=== PATIENT | male | born 1945 | race Caucasian/White ===

== ENCOUNTER 2019-07-07 07:09 | Outpatient (CLI) | payer MEDICARE, OTHER, SELFPAY ==
--- NOTE | 2019-07-07 07:18 | ECG_ITS ---
NAME OF STUDY: LEXISCAN SESTAMIBI STRESS TEST INDICATION: Dyspnea on Exertion, LEXISCAN STRESS TEST ORDERING PHYSICIAN: Carolyn CLINICAL INFORMATION: Chest pain INTERPRETATION: 1. The patient was brought to the laboratory where Lexiscan was infused over 20 seconds. There was an equipment malfunction the blood pressures were not captured. The resting heart rate was 69 beats per minute. The maximum heart rate is 91 beats per minute. 2. The baseline electrocardiogram reveals sinus rhythm and is a normal tracing 3. With Lexiscan infusion, there were no ST segment changes to suggest ischemia. 4. The patient experienced no symptoms or arrhythmias during the examination. CONCLUSION: 1. Unremarkable Lexiscan infusion. 2. Nuclear imaging to follow. Electronically Signed On 07-07-2019 10:57:06 [employer] by Remy Norton M.D. [id number]
--- NOTE | 2019-07-07 07:19 | NMCV_ITS ---
NM MIBI/MIBI Stress/Rest 14085 Armin Jameson Age: 73 Gender: M : 1945 Exam Date: 07/07/2019 07:35 Ordering Phys: Bi Leon MD Technologist: RICARDO Callahan Exam Location: [facility] Indications: Jenkins STRESS TEST Please see separate stress test report in [facility] for full findings IMAGE PROTOCOL Rest/Stress 1 Lexiscan Day Radiopharmaceutical Dose (mCi) Administration Site Administered by Rest: Tc-99m 10.4 IV RICARDO Callahan Sestamibi Stress:Tc-99m 31.2 IV RICARDO Callahan Sestamibi Rest: 07-Jul-2019 60 Discovery 630 Stress: 07-Jul-2019 60 Discovery 630 0.4mg Lexiscan. Images obtained in supine and prone position. SPECT RESULTS Technical Quality: Good Raw Data Analysis: Normal Image Corrections: Attenuation correction applied Y axis only on both sets of images. Summed Stress Score: 0 Summed Rest Score: 0 Summed Difference Score: 0 PERFUSION FINDINGS Large area of patchy decreased tracer uptake noted in basal to distal inferior and basal to mid inferolateral wall on the rest images which improved over stress images suggestive of artifact. FUNCTIONAL RESULTS (calculated via Gated SPECT) Stress Image LV EF (%): 69 Stress EDV (mL):75 TID: 0.81 Stress ESV (mL):23 Rest Image LV EF (%): 69 FUNCTIONAL FINDINGS: There is normal left ventricular systolic function. IMPRESSIONS Myocardial perfusion imaging is normal and low probability for obstructive coronary artery disease. EKG segment will be documented separately. Rachel Mueller MD (Electronically Signed) Final Date: 07 July 2019 13:13 S
[2019-07-07 07:40] VITALS: BMI 23.0
[2019-07-07] MEDS: regadenoson 0.4 Mg/5 ml Syringe IVP (09:09)
[2019-07-07 09:27] VITALS: BP 157/87; PULSE 81
== END 2019-07-07 07:10 | disposition home or self-care (01) ==
LOC: CDL 07:11
PROVIDERS: Family Provider Internal Medicine; PCP Internal Medicine; Visit Provider Internal Medicine
DX: R06.00 Dyspnea, unspecified (principal)
CPT/HCPCS: 78452; 93017; A9500; J2785

== ENCOUNTER → 2019-10-21 08:31 | Outpatient (BNVA) | payer MEDICARE, OTHER, SELFPAY | PROVIDERS: Family Provider Internal Medicine; PCP Internal Medicine | DX: L11.1 Transient acantholytic dermatosis [Grover] (principal) | CPT/HCPCS: 86580 ==

== ENCOUNTER → 2019-10-27 13:08 | Outpatient (BNVA) | payer MEDICARE, OTHER, SELFPAY | PROVIDERS: Family Provider Internal Medicine; PCP Nurse Practitioner Family; Visit Provider Nurse Practitioner Family | DX: E11.65 Type 2 diabetes mellitus with hyperglycemia (principal); Z79.4 Long term (current) use of insulin; E78.2 Mixed hyperlipidemia; R29.6 Repeated falls; L11.1 Transient acantholytic dermatosis [Grover]; F39 Unspecified mood [affective] disorder; K21.9 Gastro-esophageal reflux disease without esophagitis; Z91.14 Patient's other noncompliance with medication regimen; F02.80 Dementia in other diseases classified elsewhere, unspecified severity, without behavioral disturbance, psychotic disturbance, mood disturbance, and anxiety; G30.1 Alzheimer's disease with late onset; Q28.2 Arteriovenous malformation of cerebral vessels; F32.9 Major depressive disorder, single episode, unspecified | CPT/HCPCS: 80053; 80061; 82044; 82607; 83036; 85025 ==

== ENCOUNTER → 2020-01-24 10:04 | Outpatient (BNVA) | payer MEDICARE, OTHER, SELFPAY | PROVIDERS: Family Provider Internal Medicine; PCP Nurse Practitioner Family; Visit Provider Nurse Practitioner Family | DX: E11.65 Type 2 diabetes mellitus with hyperglycemia (principal); Z79.4 Long term (current) use of insulin | CPT/HCPCS: 80053; 80061; 83036 ==

== ENCOUNTER 2020-04-11 08:39 | Emergency (ER) | payer MEDICARE, OTHER, SELFPAY ==
--- NOTE | 2020-04-11 08:50 | XRR_ITS ---
PROCEDURE INFORMATION: Exam: XR Chest, 1 View Exam date and time: 04/11/2020 9:27 AM Age: 74 years old Clinical indication: Cough and dyspnea; Additional info: Dyspnea/cough TECHNIQUE: Imaging protocol: XR of the chest Views: 1 view. COMPARISON: CR Chest 2 views* [id number] 12/28/2018 10:48 AM FINDINGS: Lungs: Interstitial prominence without acute airspace disease. Pleural space: No pleural effusion. Heart/Mediastinum: No cardiomegaly. Bones/joints: Degenerative change . XR/XR chest 1V portable [id number] IMPRESSION: Interstitial prominence without acute airspace disease.
[2020-04-11 08:54] VITALS: BP 169/82; PULSE 72; RESP 18; TEMP 36.3; O2SAT 97; BMI 23.3
[2020-04-11 09:04] VITALS: O2SAT 96
[2020-04-11 09:30] LABS: Basophils % 0.6 %; Eosinophils % 0.6 %; Hematocrit 44.8 % (42.0-52.0); Hemoglobin 14.6 g/dL (11.7-16.6); Lymphocytes # 0.8 10^3/uL (0.8-4.8); Lymphocytes % 15.1 %; Mean Corpuscular HGB Conc 32.6 g/dL (30.0-36.0); Mean Corpuscular Hemoglobin 29.1 pg (28.0-34.0); Mean Corpuscular Volume 89.2 fL (80-94); Mean Platelet Volume 9.5 fL (7.4-10.4); Monocytes # 0.8 10^3/uL (0.2-0.9); Monocytes % 14.7 %; Neutrophils # 3.57 10^3/uL (1.8-7.7); Neutrophils % 68.8 %; Nucleated Red Blood Cells % 0 %; Platelet Count 186 10^3/cmm (130-400); Red Blood Count 5.02 10^6/uL (4.1-5.3); Red Cell Distribution Width 12.3 % (12.1-15.1); White Blood Count 5.2 10^3/uL (4.0-10.0)
[2020-04-11 09:31] LABS: Fibrinogen 482 mg/dL (174-498)
[2020-04-11 09:34] LABS: D Dimer 0.36 ug/mIFEU (0-0.59)
[2020-04-11] MEDS: ondansetron 2 mg/ML SDV 2 mL 4 MG IVP (09:39)
[2020-04-11] MEDS: sodium chloride 0.9% 1,000 ML 999 ML IV (09:39)
[2020-04-11 09:41] LABS: Chloride 100 mmol/L (98-107); Lactic Sepsis W/Reflex 0.9 mmol/L (0.5-2.2); Potassium 4.1 mmol/L (3.5-5.1); Sodium 135 mmol/L (136-145)
[2020-04-11 09:46] VITALS: BP 142/83; PULSE 72; RESP 13; O2SAT 94
[2020-04-11 10:05] LABS: Alanine Aminotransferase 24 U/L (0-41); Alkaline Phosphatase 53 IU/L (40-130); Anion Gap 14.1 (5-19); Aspartate Amino Transferase 23 U/L (0-40); Blood Urea Nitrogen 19 mg/dL (8-23); Calcium 9.3 mg/dL (8.5-10.5); Carbon Dioxide 25 mmol/L (22-29); Globulin 3.1 g/dL (1.3-4.6); Glucose 156 mg/dL (65-115); Lactate Dehydrogenase 143 U/L (135-225); Magnesium 1.9 mg/dL (1.7-2.3); Osmolality Calculated 285 mOsm/kg (285-295); Total Bilirubin 0.5 mg/dL (0.15-1.2); Total Protein 7.1 g/dL (6.6-8.7)
[2020-04-11 10:05] LABS: Add Urine Microscopic? NO
--- NOTE | 2020-04-11 10:08 | ED_ITS ---
HPI - General Adult General: Chief complaint: General Medical Stated complaint: vomiting,diarrhea,fever Time Seen by Provider: 04/11/20 08:49 History of Present Illness: HPI narrative: 74-year-old male presents to the emergency room with complaints of cough vomiting diarrhea and fever. This started about 4 days ago he is not had any chest pain other than with his coughing fits he has had no vomiting that he has some abdominal wall discomfort he denies any medication melena hematemesis or coffee-ground emesis he has had a little bit of productive cough with this as well. He is diabetic and has mild dementia his is his main caregiver. Onset (ago): day(s) (4) Severity: moderate Relieving factors: none Exacerbating factors: none Associated symptoms: Reports confusion (Has mild dementia per the he is at his baseline), cough, decreased appetite, dyspnea, fevers/chills, headache(s), malaise, nausea, short of breath, vomiting and weakness; Deny chest pain, diaphoresis, rash, palpitations, seizures or syncope Treatments prior to arrival: none Review of Systems Const: Reports: malaise; Denies: diaphoresis ENMT: Denies: throat pain, ear or mastoid pain, nasal discharge or nasal congestion Card: Denies: chest pain, palpitations or syncope Resp: Reports: dyspnea GI: Reports: nausea and vomiting : Denies: flank pain, dysuria, urinary frequency or urinary urgency Skin/Breast: Denies: rash Neuro: Reports: headache(s) and confusion (Has mild dementia per the he is at his baseline) [facility] PFSH: Medical History Actinic keratoses 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 Asthenia Atherosclerosis of arteries Cerebral AV malformation Cervical pain Cognitive impairment Congenital arteriovenous malformation of spine Depression Diabetes Diverticulitis Fixed drug eruption Intention tremor Lung nodules Mass of spine Mild anemia Mixed hyperlipidemia Mood disorder Neuralgia Obstructive sleep apnea Peripheral neuropathy, idiopathic Poor compliance with medication 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 Unintentional weight loss Surgical History History of cholecystectomy History of colon resection Family History Other Cancer Social History Smoking and tobacco status: never smoked Second hand smoke exposure: No Alcohol intake: never Lives independently: Yes Household members: spouse Marital status: Current occupational status: retired Previous occupational history: [employer] History of recent travel: No Current gender identity: Male Special naldo needs: No Agree to transfusion: Yes Physical Exam Const: COMMON NORMALS: no acute distress GENERAL APPEARANCE: cooperative and comfortable HENMT: COMMON NORMALS: normocephalic, atraumatic and hearing grossly normal bilaterally HEAD & SCALP: normocephalic and atraumatic Eye: COMMON NORMALS: Equal, round and reactive pupils present, EOMs intact bilaterally, conjunctivae normal and no scleral icterus CONJUNCTIVA: Yes conjunctivae normal PUPIL: Yes Equal, round and reactive pupils present Neck/C-Spine: COMMON NORMALS: no JVD Resp: COMMON NORMALS: normal respiratory effort, No retractions, No use of accessory muscles and clear to auscultation bilaterally AUSCULTATION: clear to auscultation bilaterally Cardio: COMMON NORMALS: no JVD, regular rate, regular rhythm and No murmurs present (Cardio) RATE: regular rate RHYTHM: regular rhythm GI: COMMON NORMALS: Soft to palpation and No hepatosplenomegaly present AUSCULTATION: Yes normoactive bowel sounds PALPATION: Yes Soft to palpation, No Tenderness to palpation present (GI), No Guarding due to palpation present (GI) and Yes No hepatosplenomegaly present Extremity: COMMON NORMALS: normal to inspection, capillary refill normal, no clubbing, cyanosis or edema, no calf tenderness and no pedal edema Skin: COMMON NORMALS: no rashes or lesions noted GENERAL SKIN EXAM: no rashes or lesions noted Course Vital Signs: Vital signs: Vital Signs Temperature 97.4 F L 04/11/20 08:54 Pulse Rate 73 04/11/20 13:15 Respiratory Rate 15 04/11/20 13:15 Blood Pressure 150/86 04/11/20 13:15 Pulse Oximetry 96 04/11/20 13:15 MDM - General Adult MDM Narrative: Medical decision making narrative: His sats are good and he is stable I am still very suspicious given his presentation he may have Covid although his inflammatory labs to look good. We are going to discharge him home after giving some IV fluids are given Cipro for him to use as needed additionally will give an O2 sat monitor. Return if he has worsening shortness of breath. Lab Data: Labs: Lab Results 04/11/20 04/11/20 04/11/20 Range/Units 09:00 09:00 09:00 WBC 5.2 (4.0-10.0) 10^3/ uL RBC 5.02 (4.1-5.3) 10^6/u L Hgb 14.6 (11.7-16.6) g/dL Hct 44.8 (42.0-52.0) % MCV 89.2 (80-94) fL MCH 29.1 (28.0-34.0) pg MCHC 32.6 (30.0-36.0) g/dL RDW 12.3 (12.1-15.1) % Plt Count 186 (130-400) 10^3/c mm MPV 9.5 (7.4-10.4) fL Neut % (Auto) 68.8 % Lymph % (Auto) 15.1 % [place] % (Auto) 14.7 % Eos % (Auto) 0.6 % Baso % (Auto) 0.6 % Neut # (Auto) 3.57 (1.8-7.7) 10^3/u L Lymph # (Auto) 0.8 (0.8-4.8) 10^3/u L [place] # (Auto) 0.8 (0.2-0.9) 10^3/u L Eos # (Auto) 0.0 (0.0-0.8) 10^3/u L Baso # (Auto) 0.0 (0.0-0.1) 10^3/u L Nucleated RBC % (a uto) 0 % Nucleated RBCs # 0.0 /100WBC Fibrinogen 482 (174-498) mg/dL D-Dimer 0.36 (0-0.59) ug/mIFE U Specimen Type Sample Site ABG pH (7.35-7.45) ABG pCO2 (35-45) mmHg ABG pO2 (80.0-100.0) mmH g ABG HCO3 (22-26) mmol/L ABG Base Excess (-2.0-2.0) mmol/ L Sushil Test Hematocrit (42-52) % O2 Delivery Device FiO2 % Rn Chemical Dependency ID Sodium 135 L (136-145) mmol/L Potassium 4.1 (3.5-5.1) mmol/L Chloride 100 (98-107) mmol/L Carbon Dioxide 25 (22-29) mmol/L Anion Gap 14.1 (5-19) BUN 19 (8-23) mg/dL Creatinine 1.2 (0.7-1.2) mg/dL GFR Calculation Not Reportable Glucose 156 H (65-115) mg/dL Calculated Osmolal ity 285 (285-295) mOsm/k g Lactic Acid (0.5-2.2) mmol/L Calcium 9.3 (8.5-10.5) mg/dL Magnesium 1.9 (1.7-2.3) mg/dL Ferritin 418 H (30-400) ng/mL Total Bilirubin 0.5 (0.15-1.2) mg/dL AST 23 (0-40) U/L ALT 24 (0-41) U/L Alkaline Phosphata se 53 (40-130) IU/L Lactate Dehydrogen ase 143 (135-225) U/L C-Reactive Protein 16.6 H (0.0-4.9) mg/L Total Protein 7.1 (6.6-8.7) g/dL Albumin 4.0 (3.5-5.2) g/dL Globulin 3.1 (1.3-4.6) g/dL Procalcitonin 0.16 (0-0.5) ng/mL Urine Color (Yellow) Urine Appearance (CLEAR) Urine pH (5-7) Ur Specific Gravit y (1.005-1.030) Urine Protein (Negative) Urine Glucose (UA) (Normal) Urine Ketones (Negative) Urine Blood (Negative) Urine Nitrate (Negative) Urine Bilirubin (Negative) Urine Urobilinogen (Negative) mg/dL Ur Leukocyte Lyn ase (Negative) Influenza Type A A g (Negative) Influenza Type B A g (Negative) SARS-CoV-2 Ag (Rap id) (Negative) 04/11/20 04/11/20 04/11/20 Range/Units 09:00 09:44 09:44 WBC (4.0-10.0) 10^3/ uL RBC (4.1-5.3) 10^6/u L Hgb (11.7-16.6) g/dL Hct (42.0-52.0) % MCV (80-94) fL MCH (28.0-34.0) pg MCHC (30.0-36.0) g/dL RDW (12.1-15.1) % Plt Count (130-400) 10^3/c mm MPV (7.4-10.4) fL Neut % (Auto) % Lymph % (Auto) % [place] % (Auto) % Eos % (Auto) % Baso % (Auto) % Neut # (Auto) (1.8-7.7) 10^3/u L Lymph # (Auto) (0.8-4.8) 10^3/u L [place] # (Auto) (0.2-0.9) 10^3/u L Eos # (Auto) (0.0-0.8) 10^3/u L Baso # (Auto) (0.0-0.1) 10^3/u L Nucleated RBC % (a uto) % Nucleated RBCs # /100WBC Fibrinogen (174-498) mg/dL D-Dimer (0-0.59) ug/mIFE U Specimen Type Sample Site ABG pH (7.35-7.45) ABG pCO2 (35-45) mmHg ABG pO2 (80.0-100.0) mmH g ABG HCO3 (22-26) mmol/L ABG Base Excess (-2.0-2.0) mmol/ L Sushil Test Hematocrit (42-52) % O2 Delivery Device FiO2 % Rn Chemical Dependency ID Sodium (136-145) mmol/L Potassium (3.5-5.1) mmol/L Chloride (98-107) mmol/L Carbon Dioxide (22-29) mmol/L Anion Gap (5-19) BUN (8-23) mg/dL Creatinine (0.7-1.2) mg/dL GFR Calculation Glucose (65-115) mg/dL Calculated Osmolal ity (285-295) mOsm/k g Lactic Acid 0.9 (0.5-2.2) mmol/L Calcium (8.5-10.5) mg/dL Magnesium (1.7-2.3) mg/dL Ferritin (30-400) ng/mL Total Bilirubin (0.15-1.2) mg/dL AST (0-40) U/L ALT (0-41) U/L Alkaline Phosphata se (40-130) IU/L Lactate Dehydrogen ase (135-225) U/L C-Reactive Protein (0.0-4.9) mg/L Total Protein (6.6-8.7) g/dL Albumin (3.5-5.2) g/dL Globulin (1.3-4.6) g/dL Procalcitonin (0-0.5) ng/mL Urine Color (Yellow) Urine Appearance (CLEAR) Urine pH (5-7) Ur Specific Gravit y (1.005-1.030) Urine Protein (Negative) Urine Glucose (UA) (Normal) Urine Ketones (Negative) Urine Blood (Negative) Urine Nitrate (Negative) Urine Bilirubin (Negative) Urine Urobilinogen (Negative) mg/dL Ur Leukocyte Lyn ase (Negative) Influenza Type A A g Negative (Negative) Influenza Type B A g Negative (Negative) SARS-CoV-2 Ag (Rap id) Negative (Negative) 04/11/20 04/11/20 Range/Units 09:55 10:22 WBC (4.0-10.0) 10^3/ uL RBC (4.1-5.3) 10^6/u L Hgb (11.7-16.6) g/dL Hct (42.0-52.0) % MCV (80-94) fL MCH (28.0-34.0) pg MCHC (30.0-36.0) g/dL RDW (12.1-15.1) % Plt Count (130-400) 10^3/c mm MPV (7.4-10.4) fL Neut % (Auto) % Lymph % (Auto) % [place] % (Auto) % Eos % (Auto) % Baso % (Auto) % Neut # (Auto) (1.8-7.7) 10^3/u L Lymph # (Auto) (0.8-4.8) 10^3/u L [place] # (Auto) (0.2-0.9) 10^3/u L Eos # (Auto) (0.0-0.8) 10^3/u L Baso # (Auto) (0.0-0.1) 10^3/u L Nucleated RBC % (a uto) % Nucleated RBCs # /100WBC Fibrinogen (174-498) mg/dL D-Dimer (0-0.59) ug/mIFE U Specimen Type Arterial Sample Site Radial, left ABG pH 7.37 (7.35-7.45) ABG pCO2 37.6 (35-45) mmHg ABG pO2 87.9 (80.0-100.0) mmH g ABG HCO3 22.0 (22-26) mmol/L ABG Base Excess -2.9 L (-2.0-2.0) mmol/ L Sushil Test Pos Hematocrit 42.1 (42-52) % O2 Delivery Device Room air FiO2 21.0 % Rn Chemical Dependency ID Cak Sodium (136-145) mmol/L Potassium (3.5-5.1) mmol/L Chloride (98-107) mmol/L Carbon Dioxide (22-29) mmol/L Anion Gap (5-19) BUN (8-23) mg/dL Creatinine (0.7-1.2) mg/dL GFR Calculation Glucose (65-115) mg/dL Calculated Osmolal ity (285-295) mOsm/k g Lactic Acid (0.5-2.2) mmol/L Calcium (8.5-10.5) mg/dL Magnesium (1.7-2.3) mg/dL Ferritin (30-400) ng/mL Total Bilirubin (0.15-1.2) mg/dL AST (0-40) U/L ALT (0-41) U/L Alkaline Phosphata se (40-130) IU/L Lactate Dehydrogen ase (135-225) U/L C-Reactive Protein (0.0-4.9) mg/L Total Protein (6.6-8.7) g/dL Albumin (3.5-5.2) g/dL Globulin (1.3-4.6) g/dL Procalcitonin (0-0.5) ng/mL Urine Color Yellow (Yellow) Urine Appearance Clear (CLEAR) Urine pH 5 (5-7) Ur Specific Gravit y 1.020 (1.005-1.030) Urine Protein Neg (Negative) Urine Glucose (UA) Norm (Normal) Urine Ketones Negative (Negative) Urine Blood Neg (Negative) Urine Nitrate Negative (Negative) Urine Bilirubin Neg (Negative) Urine Urobilinogen Neg (Negative) mg/dL Ur Leukocyte Lyn ase Negative (Negative) Influenza Type A A g (Negative) Influenza Type B A g (Negative) SARS-CoV-2 Ag (Rap id) (Negative) Discharge Plan Discharge Patient Disposition: Home Clinical Impression: Nausea & vomiting, Suspected 2019-nCoV infection Condition: Stable Prescriptions: New Zofran 4 mg tablet 4 mg PO Q6H PRN (Reason: nausea and vomiting) Qty: 15 RF: 0 No Action Bydureon BCise 2 mg/0.85 mL auto-injector 2 mg SUBCUT Q7D Qty: 3.4 RF: 2 atorvastatin 40 mg tablet 40 mg PO DAILY Qty: 90 RF: 3 duloxetine 40 mg capsule, delayed rel sprinkle 40 mg PO DAILY Qty: 90 RF: 0 Levemir U-100 Insulin 100 unit/mL solution 80 unit SUBCUT QPM 30 Days Qty: 24 RF: 2 quetiapine 25 mg tablet 25 mg PO BEDTIME 30 Days Qty: 30 RF: 3 pantoprazole 40 mg tablet,delayed release (DR/EC) 40 mg PO BID Qty: 60 RF: 6 triamcinolone acetonide 0.1 % Ointment 1 applic TOPICAL DIRECTED RF: 0 Discharge Orders: Discharge Order (Routine); Ordered 04/11/20 Ordered By: Nolan Moreno Referrals: Kinga Stinson FNP [Primary Care Provider] - Discharge Diet: Usual diet Discharge Activity: Increase activity as tolerated Activity Restrictions/Additional Instructions: You were swabbed for COVID-19 today recommend that you remain in self quarantine until results are available. Use the Zofran as needed for nausea or vomiting clear liquid diet for 24 hours and advance as tolerated if you have worsening symptoms or change in symptoms or any difficulty breathing return to the emergency room. 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
[2020-04-11 10:09] LABS: Bilirubin Urine Neg (Negative); Blood Urine Neg (Negative); Glucose Urine UA Norm (Normal); Ketones Urine Negative (Negative); Leukocyte Esterase Urine Negative (Negative); Nitrate Urine Negative (Negative); Protein Urine Neg (Negative); Urine Appearance Clear (CLEAR); Urine Color Yellow (Yellow); Urobilinogen Urine Neg (Negative); pH Urine 5 (5-7)
[2020-04-11 10:14] LABS: Influenza A by IFA Negative (Negative); Influenza B by IFA Negative (Negative); SARS Covid-2 Antigen Negative (Negative)
[2020-04-11 10:30] LABS: Procalcitonin 0.16 ng/mL (0-0.5)
[2020-04-11 10:35] LABS: ABG PCO2 37.6 mmHg (35-45); ABG PH Result 7.37 (7.35-7.45); Arterial Blood Gas Hematocrit 42.1 % (42-52); Base Excess ABG -2.9 mmol/L (-2.0-2.0); Blood Gas Allen Test Pos; Blood Gas Operator Identificat CAK; Blood Gas Sample Site Radial, left; Blood Gas Sample Type Arterial; Oxygen Device ROOM AIR; PO2 ABG 87.9 mmHg (80.0-100.0)
[2020-04-11 10:38] VITALS: BP 146/77; PULSE 71; RESP 13; O2SAT 97
[2020-04-11 10:41] LABS: C Reactive Protein 16.6 mg/L (0.0-4.9); Ferritin 418 ng/mL (30-400)
[2020-04-11 13:15] VITALS: BP 150/86; PULSE 73; RESP 15; O2SAT 96
[2020-04-11 20:56] LABS: Coronavirus Lab Test PTC Negative
--- NOTE | 2020-04-12 09:09 | PC.NURSE ---
Patient notified of COVID results at this time.
== END 2020-04-11 13:15 | disposition home or self-care (01) ==
PROVIDERS: Emergency Provider Family Medicine; PCP Nurse Practitioner Family
DX: Z20.828 Contact with and (suspected) exposure to other viral communicable diseases (principal); R11.2 Nausea with vomiting, unspecified; Z79.4 Long term (current) use of insulin; G30.1 Alzheimer's disease with late onset; F02.80 Dementia in other diseases classified elsewhere, unspecified severity, without behavioral disturbance, psychotic disturbance, mood disturbance, and anxiety; E78.2 Mixed hyperlipidemia; E11.42 Type 2 diabetes mellitus with diabetic polyneuropathy
CPT/HCPCS: 12345; 36600; 71045; 80053; 81003; 82728; 82803; 83605; 83615; 83735; 84145; 85025; 85378; 85384; 86140; 87426; 87635; 87804; 96361; 96374; 96375; 96376; 99284; J2405; J7030

== ENCOUNTER → 2020-05-02 09:19 | Outpatient (BNVA) | payer MEDICARE, OTHER, SELFPAY | PROVIDERS: PCP Nurse Practitioner Family; Visit Provider Family Medicine | DX: E78.2 Mixed hyperlipidemia (principal); E11.65 Type 2 diabetes mellitus with hyperglycemia; Z79.4 Long term (current) use of insulin | CPT/HCPCS: 80053; 80061; 83036; 85025 ==

== ENCOUNTER → 2020-07-30 09:48 | Outpatient (BNVA) | payer MEDICARE, OTHER, SELFPAY | PROVIDERS: PCP Nurse Practitioner Family; Visit Provider Nurse Practitioner Family | DX: E11.65 Type 2 diabetes mellitus with hyperglycemia (principal); Z79.4 Long term (current) use of insulin | CPT/HCPCS: 80053; 83036 ==

== ENCOUNTER → 2020-12-04 10:30 | Outpatient (BNVA) | payer MEDICARE, OTHER, SELFPAY | PROVIDERS: PCP Nurse Practitioner Family; Visit Provider Nurse Practitioner Family | DX: E11.65 Type 2 diabetes mellitus with hyperglycemia (principal); R53.83 Other fatigue; K21.9 Gastro-esophageal reflux disease without esophagitis | CPT/HCPCS: 80053; 80061; 82306; 82607; 83036; 84443; 85025 ==

== ENCOUNTER → 2021-05-07 12:02 | Outpatient (BNVA) | payer MEDICARE, OTHER, SELFPAY | PROVIDERS: PCP Nurse Practitioner Family; Visit Provider Nurse Practitioner Family | DX: E11.65 Type 2 diabetes mellitus with hyperglycemia (principal); E78.2 Mixed hyperlipidemia; Z79.4 Long term (current) use of insulin; E11.649 Type 2 diabetes mellitus with hypoglycemia without coma | CPT/HCPCS: 36416; 80053; 80061; 82962; 83036; 85025 ==

== ENCOUNTER → 2021-09-16 15:18 | Outpatient (BNVA) | payer MEDICARE, OTHER, SELFPAY | PROVIDERS: PCP Nurse Practitioner Family; Visit Provider Internal Medicine | DX: E11.65 Type 2 diabetes mellitus with hyperglycemia (principal); R53.83 Other fatigue; Z79.4 Long term (current) use of insulin; R63.4 Abnormal weight loss; D64.9 Anemia, unspecified; L11.1 Transient acantholytic dermatosis [Grover] | CPT/HCPCS: 80053; 82607; 82746; 83036; 83550; 84443; 85651; 86140 ==

== ENCOUNTER → 2021-09-23 14:41 | Outpatient (BNVA) | payer MEDICARE, OTHER, SELFPAY | PROVIDERS: PCP Nurse Practitioner Family; Visit Provider Internal Medicine | DX: Z20.822 Contact with and (suspected) exposure to COVID-19 (principal); R53.83 Other fatigue; E11.65 Type 2 diabetes mellitus with hyperglycemia; Z79.4 Long term (current) use of insulin; R63.4 Abnormal weight loss; D64.9 Anemia, unspecified; E61.1 Iron deficiency; Z01.818 Encounter for other preprocedural examination | CPT/HCPCS: 87635 ==

== ENCOUNTER 2021-09-30 07:18 | Day surgery (SDC) | payer MEDICARE, OTHER, SELFPAY ==
--- NOTE | 2021-09-30 07:34 | ANES.PREANE2 ---
Pre-Anesthetic Assessment Height/Weight: Height 1.83 m Preop Diagnosis: Fe def Operation Date: 09/30/21 09:00 Proposed Procedures p EGD 67323, colon 09994, E61.1(Not Applicable) - Bi Leon MD s Colonoscopy(Not Applicable) - Bi Leon MD Familial anesthetic complications: None Was Beta Christiano taken within 24 hours: N/A Was Clonidine taken within 24 hours: N/A Last intake: > 8hrs Social No alcohol and No tobacco Exam alert, oriented x 3, clear to auscultation bilaterally and regular rate & rhythm Airway Mallampati: Class III Dentition: other (missing tooth) Pulmonary None reported CV/HEM None reported None reported Hepatic None reported GI Gastroesophageal Reflux Disease Metabolic Diabetes Mellitus [facility] [place] None reported Neuropsych 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, still has headaches Anesthetic Plan ASA status: 3 Anesthesia: MAC Risk of > 500 ml blood loss (7ml/kg in children): No Medications/Allergies Home Medications Medication Instructions Recorded Confirmed Last Taken Type ondansetron HCl 4 mg tablet 4 mg PO Q6H PRN #15 tab 04/11/20 09/27/21 Unknown Rx (Zofran) lancets 23 gauge #100 ea 07/03/20 09/27/21 Unknown Rx blood sugar diagnostic (Blood #100 ea 08/03/20 09/27/21 Unknown Rx Glucose Test) pantoprazole 40 mg tablet,delayed 40 mg PO BID #60 tab 05/08/21 09/27/21 Unknown Rx release insulin syringe-needle U-100 1 mL See Rx Instructions .ROUTE 06/17/21 09/27/21 Unknown Rx 31 gauge x 5/16 .COMPLEX #100 ea quetiapine 25 mg tablet 25 mg PO BEDTIME 30 Days #30 tab 07/09/21 09/27/21 Unknown Rx insulin detemir U-100 100 unit/mL 80 unit (0.8 mL) SUBCUT DAILY #30 08/20/21 09/27/21 Unknown Rx (3 mL) subcutaneous pen (Levemir ml FlexTouch U-100 Insulin) clonazepam 1 mg tablet 1 mg PO DAILY #30 tab 09/04/21 09/27/21 Unknown Rx ferrous gluconate 324 mg (37.5 mg 324 mg PO DAILY #90 tab 09/23/21 09/27/21 Unknown Rx iron) tablet duloxetine 20 mg capsule,delayed 40 mg PO DAILY 09/27/21 09/27/21 Unknown History release Allergies Allergy/AdvReac Type Severity Reaction Status Date / Time metformin AdvReac ADR-Diarrhe Verified 09/23/21 13:25 a [facility] Anesthesia Medical History (Updated 09/23/21 @ 13:54 by Bi Leon MD) Actinic keratoses 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 Asthenia Atherosclerosis of arteries Cerebral AV malformation Cervical pain Cognitive impairment Congenital arteriovenous malformation of spine Depression Diabetes Diverticulitis Fixed drug eruption Intention tremor Lung nodules Mass of spine Mild anemia Mixed hyperlipidemia Mood disorder Neuralgia Obstructive sleep apnea Peripheral neuropathy, idiopathic Poor compliance with medication 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
--- NOTE | 2021-09-30 07:38 | P.HP_ITS ---
Same Day Surgery H&P Indication for Procedure/HPI DATE OF PROCEDURE: September 30, 2021 CHIEF COMPLAINT/INDICATIONFOR SURGICAL PROCEDURE: Iron deficiency PREOP DIAGNOSIS: Fe def PLANNED PROCEDURE: Operation Date: 09/30/21 09:00 Proposed Procedures p EGD 31404, colon 30292, E61.1(Not Applicable) - Bi Leon MD s Colonoscopy(Not Applicable) - Bi Leon MD Medications/Allergies* Home Medications Medication Instructions Recorded Confirmed Type duloxetine 20 mg capsule,delayed 40 mg PO DAILY 09/27/21 09/27/21 History release Allergies/Adverse Reactions Allergy/AdvReac Type Severity Reaction Status Date / Time metformin AdvReac ADR-Diarrhe Verified 09/23/21 13:25 a Pertinent History/Comorbid Conditions* Medical History (Updated 09/23/21 @ 13:54 by Bi Leon MD) Actinic keratoses 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 Asthenia Atherosclerosis of arteries Cerebral AV malformation Cervical pain Cognitive impairment Congenital arteriovenous malformation of spine Depression Diabetes Diverticulitis Fixed drug eruption Intention tremor Lung nodules Mass of spine Mild anemia Mixed hyperlipidemia Mood disorder Neuralgia Obstructive sleep apnea Peripheral neuropathy, idiopathic Poor compliance with medication 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 Unintentional weight loss Surgical History (Updated 02/01/20 @ 21:07 by JEAN MARIE Torres) History of cholecystectomy History of colon resection Family History (Updated 07/07/19 @ 07:54 by Suyapa Tolentino RN) Cancer Social History Smoking and tobacco status: never smoked Second hand smoke exposure: No Alcohol intake: never Lives independently: Yes Household members: spouse Marital status: Current occupational status: retired Previous occupational history: [employer] History of recent travel: No Current gender identity: Male Special naldo needs: No Agree to transfusion: Yes Pertinent Exam Findings alert, oriented x 3, clear to auscultation bilaterally, regular rate & rhythm, operative site marked and procedure specific exam findings Recommendations Surgery/Procedure today Coding Level of Care Code Acute 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
[2021-09-30 07:52] VITALS: BP 145/79; PULSE 70; RESP 18; TEMP 36.3; O2SAT 99
[2021-09-30 08:01] VITALS: BMI 22.2
[2021-09-30] MEDS: sodium chloride 0.9% 1,000 ML 30 ML IV (08:02)
[2021-09-30 09:35] VITALS: BP 91/54; PULSE 76; RESP 16; TEMP 36.1; O2SAT 96
--- NOTE | 2021-09-30 09:38 | ANE.PACU2 ---
Inpatient post-anesthesia follow up: Airway intact: Yes Vital signs: Temperature 97.3 F Pulse Rate 70 Respiratory Rate 18 Blood Pressure 145/79 Pulse Oximetry 99 Oxygen Delivery Me thod Room Air Oxygen Flow Rate Fraction of Inspir ed Oxygen Hydration adequate: Yes Nausea and vomiting: No Pain level: 1 Mental status: Baseline
[2021-09-30 09:45] VITALS: BP 92/54; PULSE 70; RESP 18; O2SAT 95
[2021-10-01 06:41] LABS: H. Pylori / CLO Test Negative
== END 2021-09-30 10:12 | disposition home or self-care (01) ==
PROVIDERS: PCP Internal Medicine; Visit Provider Internal Medicine
PROC: 0DJ08ZZ Inspection of Upper Intestinal Tract, Via Natural or Artificial Opening Endoscopic (ICD-10-PCS; CPT 43235; principal; 2021-09-30 09:00)
PROC: 0DJD8ZZ Inspection of Lower Intestinal Tract, Via Natural or Artificial Opening Endoscopic (ICD-10-PCS; CPT 45378; 2021-09-30 09:00)
DX: E61.1 Iron deficiency (principal); E11.9 Type 2 diabetes mellitus without complications; E78.2 Mixed hyperlipidemia; G47.33 Obstructive sleep apnea (adult) (pediatric); Z91.14 Patient's other noncompliance with medication regimen; E11.42 Type 2 diabetes mellitus with diabetic polyneuropathy; D12.3 Benign neoplasm of transverse colon; K29.70 Gastritis, unspecified, without bleeding; K21.9 Gastro-esophageal reflux disease without esophagitis; Z79.4 Long term (current) use of insulin
CPT/HCPCS: 43239; 45385; 87077; 88305; J2704; J7030

== ENCOUNTER → 2021-10-30 14:57 | Outpatient (BNVA) | payer MEDICARE, OTHER, SELFPAY | PROVIDERS: PCP Internal Medicine; Visit Provider Internal Medicine | DX: E61.1 Iron deficiency (principal); R63.4 Abnormal weight loss; R53.83 Other fatigue; E11.65 Type 2 diabetes mellitus with hyperglycemia; Z79.4 Long term (current) use of insulin | CPT/HCPCS: 83550 ==

== ENCOUNTER → 2021-11-27 10:14 | Outpatient (BNVA) | payer MEDICARE, OTHER, SELFPAY | PROVIDERS: PCP Internal Medicine; Visit Provider Internal Medicine | DX: E11.9 Type 2 diabetes mellitus without complications (principal) | CPT/HCPCS: 83036 ==

== ENCOUNTER → 2022-04-16 10:50 | Outpatient (BNVA) | payer MEDICARE, OTHER, SELFPAY | PROVIDERS: PCP Nurse Practitioner Family; Visit Provider Nurse Practitioner Family | DX: E11.65 Type 2 diabetes mellitus with hyperglycemia (principal); Z79.4 Long term (current) use of insulin; R32 Unspecified urinary incontinence | CPT/HCPCS: 80053; 80061; 81003; 82043; 83036; 84443; 85025 ==

== ENCOUNTER 2022-12-02 03:46 | Emergency (ER) | payer MEDICARE, OTHER, SELFPAY ==
[2022-12-02 03:47] VITALS: BMI 22.4
--- NOTE | 2022-12-02 03:47 | ECG_ITS ---
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 Measurements Intervals [place] Rate: 77 P: 19 DC: 186 QRS: 40 QRSD: 86 T: 74 QT: 374 QTc: 424 Interpretive Statements SINUS RHYTHM Compared to ECG 10/01/2018 12:54:21 Left-axis deviation no longer present Electronically Signed On 12-02-2022 5:40:28 CDT by Antonia Lott M.D. [id number]
--- NOTE | 2022-12-02 03:47 | XRR_ITS ---
PROCEDURE INFORMATION: Exam: XR Chest Exam date and time: 12/02/2022 3:55 AM Age: 77 years old Clinical indication: Other: Syncopal episodes; Additional info: Syncope TECHNIQUE: Imaging protocol: Radiologic exam of the chest. Views: 1 view. COMPARISON: CR XR chest 1V portable [id number] 04/11/2020 9:16 AM FINDINGS: Lungs: Unremarkable. No consolidation. Pleural spaces: Unremarkable. No pleural effusion. No pneumothorax. Heart/Mediastinum: Unremarkable. No cardiomegaly. Bones/joints: Unremarkable. XR/XR chest 1V portable [id number] IMPRESSION: No acute findings.
[2022-12-02 03:51] VITALS: BP 115/66; PULSE 80; RESP 16; TEMP 37.1; O2SAT 93
--- NOTE | 2022-12-02 03:53 | XRR_ITS ---
PROCEDURE INFORMATION: Exam: XR Right Hip Exam date and time: 12/02/2022 3:57 AM Age: 77 years old Clinical indication: Injury or trauma; Blunt trauma (contusions or hematomas); Right; Hip; Injury details: Multiple falls recently TECHNIQUE: Imaging protocol: Radiologic exam of the right hip. Views: 1 view hip with pelvis when performed. COMPARISON: No relevant prior studies available. FINDINGS: Bones/joints: Unremarkable. No acute fracture. Soft tissues: Unremarkable. XR/XR hip RT 2-3V wo/w pel* [id number] IMPRESSION: No acute findings.
[2022-12-02 03:55] LABS: Glucose Point of Care 208 mg/dL (70-110)
--- NOTE | 2022-12-02 03:57 | W.ED.SYNCOPE ---
HPI - Syncope General: Chief Complaint: Syncope Stated Complaint: SYNCOPE Time Seen by Provider: 12/02/22 03:46 Source: patient and EMS Mode of arrival: EMS Limitations: no limitations History of Present Illness: 69-year-old male states he passed out [address] he states that 2 nights ago when he passed out he fell and has been having right hip pain since that he was seen at [facility] last night and was told that his x-ray was negative. He states he tried to go to the bathroom tonight and passed out again he denies any injuries from that but states he still having hip pain and a hard time walking. 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 Asthenia Atherosclerosis of arteries Cerebral AV malformation Cervical pain Cognitive impairment Congenital arteriovenous malformation of spine Depression Diabetes Diverticulitis Fixed drug eruption Intention tremor Lung nodules Mass of spine Mild anemia Mixed hyperlipidemia Mood disorder Neuralgia Obstructive sleep apnea Peripheral neuropathy, idiopathic Poor compliance with medication 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 Unintentional weight loss Surgical History History of cholecystectomy History of colon resection Family History Other Cancer Social History Smoking and tobacco status: never smoked Second hand smoke exposure: No Alcohol intake: never Substance/Drug Use: never Lives independently: Yes Household members: spouse Marital status: Current occupational status: retired Previous occupational history: [employer] Current gender identity: Male Special naldo needs: No Agree to transfusion: Yes Physical Exam Const: COMMON NORMALS: patient oriented x3 and healthy appearing HENMT: COMMON NORMALS: normocephalic and atraumatic HEAD & SCALP: normocephalic and atraumatic Eye: COMMON NORMALS: Equal, round and reactive pupils present and EOMs intact bilaterally PUPIL: Yes Equal, round and reactive pupils present Neck/C-Spine: COMMON NORMALS: full ROM and supple CERVICAL SPINE: No pain with cervical ROM and No Cervical spine tenderness Chest: COMMONS NORMALS: normal inspection of the chest and normal palpation of entire chest wall Resp: COMMON NORMALS: normal respiratory effort, No retractions, No use of accessory muscles and clear to auscultation bilaterally AUSCULTATION: clear to auscultation bilaterally Cardio: COMMON NORMALS: regular rate, regular rhythm and No murmurs present (Cardio) RATE: regular rate RHYTHM: regular rhythm GI: COMMON NORMALS: Normal to inspection, nondistended, normoactive bowel sounds present, Soft to palpation, non-tender and no masses PALPATION: Yes Soft to palpation Extremity: COMMON NORMALS: normal to inspection and full ROM NARRATIVE EXTREMITY EXAM: tenderness over right hip Neuro: COMMON NORMALS: patient oriented x3, moves all extremities and no focal motor deficits Psych: COMMON NORMALS: mental status grossly normal, Normal thought process present and cooperative THOUGHT PROCESS: Normal thought process present Skin: COMMON NORMALS: no rashes or lesions noted and no wounds GENERAL SKIN EXAM: no rashes or lesions noted Course Vital Signs: Vital signs: Vital Signs Temperature 98.8 F 12/02/22 03:51 Pulse Rate 80 12/02/22 03:51 Respiratory Rate 16 12/02/22 03:51 Blood Pressure 115/66 12/02/22 03:51 Pulse Oximetry 93 12/02/22 03:51 Oxygen Delivery Me thod Nasal Cannula 12/02/22 03:51 Oxygen Flow Rate 3 12/02/22 03:51 MDM - Syncope Medical Decision Making Patient presents here after syncopal event he is very weak here as well he is having a difficult time ambulating on his own. CT of his hips normal he had a urinalysis done yesterday at his medical records from [facility] it was negative he had a CT head and C-spine yesterday 2 that was normal. I strongly recommended admission he adamantly refused I spoke to him and his family at length he states that he does not want to stay in the hospital and did sign out AGAINST MEDICAL ADVICE he understood the risks and has medical decision-making capacity. Medical Records I reviewed the patient's medical records. Lab Data I reviewed the patient's lab results. 12/02/22 03:55 12/02/22 03:55 Radiology Impressions Chest X-Ray 12/02/22 03:47 IMPRESSION: No acute findings. Hip/Pelvis X-Ray 12/02/22 03:53 IMPRESSION: No acute findings. Hip CT 12/02/22 04:02 IMPRESSION: No fracture or dislocation. Laboratory Results WBC 7.0 10^3/uL (4.0-10.0) 12/02/22 03:55 RBC 4.10 10^6/uL (4.1-5.3) 12/02/22 03:55 Hgb 11.5 g/dL (11.7-16.6) L 12/02/22 03:55 Hct 35.5 % (42.0-52.0) L 12/02/22 03:55 MCV 86.6 fl (80-94) 12/02/22 03:55 MCH 28.0 pg (28.0-34.0) 12/02/22 03:55 MCHC 32.4 g/dL (30.0-36.0) 12/02/22 03:55 RDW 12.2 % (12.1-15.1) 12/02/22 03:55 Plt Count 150 10^3/cmm (130-400) 12/02/22 03:55 MPV 8.9 fL (7.4-10.4) 12/02/22 03:55 Neut % (Auto) 78.6 % 12/02/22 03:55 Lymph % (Auto) 8.4 % 12/02/22 03:55 [place] % (Auto) 11.3 % 12/02/22 03:55 Eos % (Auto) 0.7 % 12/02/22 03:55 Baso % (Auto) 0.4 % 12/02/22 03:55 Neut # (Auto) 5.49 10^3/uL (1.8-7.7) 12/02/22 03:55 Lymph # (Auto) 0.6 10^3/uL (0.8-4.8) L 12/02/22 03:55 [place] # (Auto) 0.8 10^3/uL (0.2-0.9) 12/02/22 03:55 Eos # (Auto) 0.1 10^3/uL (0.0-0.8) 12/02/22 03:55 Baso # (Auto) 0.0 10^3/uL (0.0-0.1) 12/02/22 03:55 Nucleated RBC % (auto) 0 % 12/02/22 03:55 Nucleated RBCs # 0.0 /100WBC 12/02/22 03:55 Sodium 132 mmol/L (136-145) L 12/02/22 03:55 Potassium 3.8 mmol/L (3.5-5.1) 12/02/22 03:55 Chloride 97 mmol/L (98-107) L 12/02/22 03:55 Carbon Dioxide 26 mmol/L (22-29) 12/02/22 03:55 Anion Gap 12.8 (5-19) 12/02/22 03:55 BUN 16 mg/dL (8-23) 12/02/22 03:55 Creatinine 1.0 mg/dL (0.7-1.2) 12/02/22 03:55 GFR Calculation Not Reportable 12/02/22 03:55 Glucose 174 mg/dL (65-115) H 12/02/22 03:55 POC Glucose 208 mg/dL (70-110) H 12/02/22 03:51 Calculated Osmolality 279 mOsm/kg (285-295) L 12/02/22 03:55 Calcium 8.7 mg/dL (8.5-10.5) 12/02/22 03:55 Total Bilirubin 0.6 mg/dL (0.15-1.2) 12/02/22 03:55 AST 26 U/L (0-40) 12/02/22 03:55 ALT 23 U/L (0-41) 12/02/22 03:55 Alkaline Phosphatase 45 U/L (40-130) 12/02/22 03:55 Total Protein 6.5 g/dL (6.6-8.7) L 12/02/22 03:55 Albumin 3.3 g/dL (3.5-5.2) L 12/02/22 03:55 Globulin 3.2 g/dL (1.3-4.6) 12/02/22 03:55 EKG Data EKG 1: I personally reviewed and interpreted this EKG as follows: EKG interpretation date: 12/02/22 EKG interpretation time: 04:03 Interpretation: nsr hr [address] or t wave abnormalities qrs 86 qtc 406 Discharge Plan Discharge Patient Disposition: Left Against Medical Advice Clinical Impression: Weakness, Multiple falls, Syncope Condition: Stable Prescriptions: No Action ferrous gluconate 324 mg (37.5 mg iron) tablet 324 mg PO DAILY Qty: 90 3RF pantoprazole 40 mg tablet,delayed release (DR/EC) 40 mg PO BID Qty: 60 6RF duloxetine 60 mg capsule,delayed release(DR/EC) 60 mg PO DAILY Qty: 90 3RF quetiapine 25 mg tablet 25 mg PO BEDTIME 30 Days Qty: 30 3RF insulin syringe-needle U-100 1 mL 31 gauge x 5/16 syringe See Rx Instructions .ROUTE .COMPLEX Qty: 100 3RF Dose Instruction: USE DIRECTED TO inject insulin Rx Instructions: USE DIRECTED TO inject insulin (DME) pen needle, diabetic [Comfort EZ Pen [place]] 31 gauge x 5/16 needle See Rx Instructions .Route Qty: 100 3RF Rx Instructions: As directed Farxiga 10 mg tablet 10 mg PO DAILY Qty: 30 2RF (DME) Blood Glucose Test Strip See Rx Instructions .ROUTE .MEDSUPPLY Qty: 100 11RF Rx Instructions: to test 3 x day (DME) blood-glucose meter Misc See Rx Instructions .Route Qty: 1 0RF Rx Instructions: CHECK BLOOD SUGAR THREE TIMES DAILY (DME) lancets 23 gauge misc See Rx Instructions .ROUTE .MEDSUPPLY Qty: 100 2RF Rx Instructions: TID as directed Levemir FlexTouch U-100 Insuln 100 unit/mL (3 mL) insulin pen See Rx Instructions .ROUTE .COMPLEX Qty: 30 0RF Dose Instruction: INJECT 10 UNITS SUBCUTANEOUSLY IN THE MORNING AND 70 UNITS IN THE EVENING. Rx Instructions: INJECT 10 UNITS SUBCUTANEOUSLY IN THE MORNING AND 70 UNITS IN THE EVENING. Referrals: Kinga Stinson FNP [Primary Care Provider] - Coding Level of Care Code ED Wash Test Checker for Chg Alon
--- NOTE | 2022-12-02 04:02 | CTR_ITS ---
PROCEDURE INFORMATION: Exam: CT Right Lower Extremity Without Contrast, Hip Exam date and time: 12/02/2022 4:27 AM Age: 77 years old Clinical indication: Injury or trauma; Fall; Blunt trauma; Hip; Right TECHNIQUE: Imaging protocol: CT of the right lower extremity without contrast was performed. Exam focused on the hip. Radiation optimization: All CT scans at this facility use at least one of these dose optimization techniques: automated exposure control; mA and/or kV adjustment per patient size (includes targeted exams where dose is matched to clinical indication); or iterative reconstruction. REPORTING DATA: Count of CT and Cardiac NM exams in prior 12 months: This patient has received 0 known CTs and 0 known cardiac nuclear medicine studies in the 12 months prior to the current study. COMPARISON: CR (PELVIS, ) 12/02/2022 3:57 AM RADIATION DOSE METRICS: Total DLP (mGy-cm): 344.58 FINDINGS: Bones/joints: Normal. No acute fracture or dislocation. Soft tissues: There is swelling subcutaneous fat and thickening of the overlying skin about the lateral aspect of the hip region. There is small amount of hyperdense fluid tracking along the subcutaneous tissues of the anteromedial right thigh, likely representing hemorrhagic blood products/contusion. No significant hematoma identified. Vasculature: Mild diffuse atherosclerotic disease is present. Reproductive: The prostate is enlarged. CT/CT hip RT wo con* [id number] IMPRESSION: No fracture or dislocation.
[2022-12-02 04:05] LABS: Basophils % 0.4 %; Eosinophils # 0.1 10^3/uL (0.0-0.8); Eosinophils % 0.7 %; Hematocrit 35.5 % (42.0-52.0); Hemoglobin 11.5 g/dL (11.7-16.6); Lymphocytes # 0.6 10^3/uL (0.8-4.8); Lymphocytes % 8.4 %; Mean Corpuscular HGB Conc 32.4 g/dL (30.0-36.0); Mean Corpuscular Volume 86.6 fl (80-94); Mean Platelet Volume 8.9 fL (7.4-10.4); Monocytes # 0.8 10^3/uL (0.2-0.9); Monocytes % 11.3 %; Neutrophils # 5.49 10^3/uL (1.8-7.7); Neutrophils % 78.6 %; Nucleated Red Blood Cells % 0 %; Platelet Count 150 10^3/cmm (130-400); Red Cell Distribution Width 12.2 % (12.1-15.1)
[2022-12-02 04:22] LABS: Alanine Aminotransferase 23 U/L (0-41); Albumin Level 3.3 g/dL (3.5-5.2); Alkaline Phosphatase 45 U/L (40-130); Anion Gap 12.8 (5-19); Aspartate Amino Transferase 26 U/L (0-40); Blood Urea Nitrogen 16 mg/dL (8-23); Calcium 8.7 mg/dL (8.5-10.5); Carbon Dioxide 26 mmol/L (22-29); Chloride 97 mmol/L (98-107); Globulin 3.2 g/dL (1.3-4.6); Glucose 174 mg/dL (65-115); Osmolality Calculated 279 mOsm/kg (285-295); Potassium 3.8 mmol/L (3.5-5.1); Sodium 132 mmol/L (136-145); Total Bilirubin 0.6 mg/dL (0.15-1.2); Total Protein 6.5 g/dL (6.6-8.7)
--- NOTE | 2022-12-02 05:07 | PC.NURSE ---
Ambulation trial completed per MD. Pt allowed to get up on his own, per his request, but pt was very weak and took an extended time to get up. He fell back to the bed twice before finally being able to get up. Pt did ambulated to the door and back to the bed, but was very shaky and unsteady on his feet. Pt assisted back to bed. Vitals taken while standing were within normal limits. Pt reported feeling slightly dizzy, but otherwise ok. notified.
--- NOTE | 2022-12-02 05:11 | PC.NURSE ---
RN and MD to bedside to discuss admission. Pt is adamant about going home. This is against doctor's advice of being admitted. Pt and family understands and patient will sign out ama.
== END 2022-12-02 05:38 | disposition left against medical advice (07) ==
PROVIDERS: Emergency Provider Emergency Medicine; PCP Nurse Practitioner Family
DX: R55 Syncope and collapse (principal); Z91.81 History of falling; R53.1 Weakness; Z53.29 Procedure and treatment not carried out because of patient's decision for other reasons
CPT/HCPCS: 36416; 71045; 73502; 73700; 80053; 82962; 85025; 93005; 99285

== ENCOUNTER → 2023-02-25 09:21 | Outpatient (BNVA) | payer MEDICARE, OTHER, SELFPAY | PROVIDERS: PCP Nurse Practitioner Family; Visit Provider Nurse Practitioner Family | DX: E61.1 Iron deficiency (principal); R63.4 Abnormal weight loss; E78.2 Mixed hyperlipidemia; Z12.5 Encounter for screening for malignant neoplasm of prostate; E11.65 Type 2 diabetes mellitus with hyperglycemia | CPT/HCPCS: 80053; 80061; 82043; 83036; 83540; 84443; 85025; G0103 ==

== ENCOUNTER → 2023-03-16 09:55 | Outpatient (BNVA) | payer MEDICARE, OTHER, SELFPAY | PROVIDERS: PCP Internal Medicine; Referring Provider Internal Medicine; Visit Provider Psychiatry & Neurology Neurology | DX: R55 Syncope and collapse (principal); F02.80 Dementia in other diseases classified elsewhere, unspecified severity, without behavioral disturbance, psychotic disturbance, mood disturbance, and anxiety; G60.9 Hereditary and idiopathic neuropathy, unspecified; G30.1 Alzheimer's disease with late onset; E55.9 Vitamin D deficiency, unspecified; F51.4 Sleep terrors [night terrors]; G47.8 Other sleep disorders; G47.52 REM sleep behavior disorder; M54.81 Occipital neuralgia; R41.3 Other amnesia | CPT/HCPCS: 0346U; 82306; 82542; 82607; 82746; 83735; 83921; 84155; 84165; 86334; 86592; 86780; 99204 ==

== ENCOUNTER → 2023-03-26 08:07 | Outpatient (BNVA) | payer MEDICARE, OTHER, SELFPAY | PROVIDERS: PCP Internal Medicine; Visit Provider Psychiatry & Neurology Neurology | DX: R41.3 Other amnesia (principal); G47.9 Sleep disorder, unspecified; M54.81 Occipital neuralgia; R55 Syncope and collapse | CPT/HCPCS: 95813 ==

== ENCOUNTER 2023-04-02 12:21 | Outpatient (CLI) | payer MEDICARE, OTHER, SELFPAY ==
--- NOTE | 2023-04-02 13:00 | MR_ITS ---
WS: [id number] MRA ANGIOGRAPHY [place] OF [place] HISTORY: G60.9 - Hereditary and idiopathic neuropathy, unspecified COMPARISON: None available. TECHNIQUE: 3-D MR angiography is performed of the [place]. All images are reviewed including source images. Distal vertebral and basilar arteries are intact with no significant stenosis or plaque. Posterior ce rebral arteries are normal course and caliber. Posterior communicating arteries are both patent. LEFT posterior communicating artery is hypoplastic. Intracranial portion of the internal carotid arteries are normal course and caliber. No significant a therosclerosis, stenosis or aneurysm identified. Middle and anterior cerebral arteries are both paten t with no significant disease. Anterior communicating artery is also normal. IMPRESSION: Normal MRA [place]. No areas of significant occlusion or obstruction. No aneurysm.
--- NOTE | 2023-04-02 13:00 | MR_ITS ---
WS: [id number] MRI BRAIN WITH AND WITHOUT CONTRAST HISTORY: G60.9 - Hereditary and idiopathic neuropathy, unspecified COMPARISON: 10/02/2018 TECHNIQUE: Multiplanar imaging performed through the brain with MultiHance 17 ml's IV. No acute infarcts are seen. Puckett-white matter differentiation is well preserved. Moderate periventric ular small vessel ischemic disease. There is additional small vessel ischemic disease bilaterally wit hin the edson. The extent of disease within the edson does appear to have increased. Very minimal hippo campal atrophy. No susceptibility artifacts or prior lacunar infarcts. Ventricles and extra-axial spaces are normal. Clivus and pituitary gland are normal. Visualized posterior fossa and brainstem are also normal. Postcontrast images are negative for masses or vascular malformations. Dural venous sinuses are normal. Paranasal sinuses: Well aerated with no significant disease. Mastoid air cells: Normal. Calvarium and scalp: Normal. IMPRESSION: 1. No restricted diffusion. 2. Moderate periventricular small vessel ischemic disease is stable. 3. Moderate small vessel ischemic disease in the edson has increased since 2019. 4. Very mild cerebral atrophy and hippocampal atrophy. 5. No masses or abnormal enhancement within the brain.
--- NOTE | 2023-04-02 13:45 | MR_ITS ---
WS: [id number] MRA CAROTID ARTERIES HISTORY: G60.9 - Hereditary and idiopathic neuropathy, unspecified COMPARISON: None available. TECHNIQUE: MRA is performed with intravenous gadolinium. MIP and source images are reviewed. Right: Normal cervical carotid artery. Bifurcation is intact. No significant plaque and no stenosis. Left: Normal cervical carotid artery. Bifurcation is intact. No significant plaque and no stenosis. Subclavian Arteries: Origin of the LEFT subclavian artery is not included on this examination. Distal to the origin of the subclavian artery is normal. RIGHT subclavian is normal. Vertebral Arteries: Normal. Vertebral arteries appear equal size IMPRESSION: No significant atherosclerotic disease or stenosis cervical carotid arteries.
[2023-04-02] MEDS: gadobenate dimeglumine 20 mL vial IV (14:28)
== END 2023-04-02 12:22 | disposition home or self-care (01) ==
LOC: RAD 12:22
PROVIDERS: PCP Internal Medicine; Visit Provider Psychiatry & Neurology Neurology
DX: G60.9 Hereditary and idiopathic neuropathy, unspecified (principal); F02.80 Dementia in other diseases classified elsewhere, unspecified severity, without behavioral disturbance, psychotic disturbance, mood disturbance, and anxiety; G30.1 Alzheimer's disease with late onset; I67.89 Other cerebrovascular disease
CPT/HCPCS: 70544; 70548; 70553; A9577

== ENCOUNTER → 2023-06-11 11:51 | Outpatient (BNVA) | payer MEDICARE, OTHER, SELFPAY | PROVIDERS: PCP Internal Medicine; Visit Provider Psychiatry & Neurology Neurology | DX: R55 Syncope and collapse (principal) | CPT/HCPCS: 99212 ==

== ENCOUNTER → 2023-08-06 12:01 | Outpatient (BNVA) | payer MEDICARE, OTHER, SELFPAY | PROVIDERS: PCP Internal Medicine; Visit Provider Psychiatry & Neurology Neurology | DX: R55 Syncope and collapse (principal); M54.81 Occipital neuralgia; G47.52 REM sleep behavior disorder; F51.3 Sleepwalking [somnambulism]; R41.3 Other amnesia; G47.50 Parasomnia, unspecified | CPT/HCPCS: 99212 ==

== ENCOUNTER 2023-11-20 11:34 | Inpatient (IN) | payer MEDICARE, OTHER, SELFPAY ==
[2023-11-20] VITALS (11 sets, daily range): BP systolic 112–152; BP diastolic 49–81; PULSE 84–96; RESP 16–20; TEMP 36.6–37.4; O2SAT 90–98
[2023-11-20 11:41] LABS: Glucose Point of Care 169 mg/dL (70-110)
--- NOTE | 2023-11-20 11:44 | ECG_ITS ---
[facility] Test Date: 2023-11-20 Pat Name: Armin Jameson Department: Room: Gender: Male Department Head College Or University: : 1945 Requested By: Jaya Caputo Order Number: [id number] Rose Mary MD: Ric Johnson M.D. Measurements Intervals [place] Rate: 89 P: -46 IN: 151 QRS: 31 QRSD: 91 T: 80 QT: 378 QTc: 461 Interpretive Statements ECTOPIC ATRIAL RHYTHM POSSIBLE RIGHT VENTRICULAR CONDUCTION DELAY [RSR (QR) IN V1/V2] VOLTAGE CRITERIA FOR LVH [MEETS CRITERIA IN ONE OF: R(aVL), S(V1), R(V5), R(V5/V6)+S(V1)] Compared to ECG 12/02/2022 04:03:13 Ectopic atrial rhythm now present Left ventricular hypertrophy now present Sinus rhythm no longer present Electronically Signed On 11-20-2023 13:06:07 CDT by Ric Johnson M.D. [email or web address]
--- NOTE | 2023-11-20 11:47 | W.ED.RECABL ---
HPI - Recheck/Abnormal Lab/Rx General: Chief Complaint: Recheck/Abnormal Lab/Rx Stated Complaint: hypoglycemic Time Seen by Provider: 11/20/23 11:36 Source: patient and EMS Mode of arrival: EMS Limitations: no limitations History of Present Illness: 78-year-old male who was found unresponsive this morning by family called EMS when EMS arrived patient's glucose was 30 he is on insulin he states he had not eaten this morning. He is given dextrose and route he is now awake alert he states he feels slightly weak but has no complaints he is a dialysis patient goes on Thursday scheduled for dialysis today. He denies any fevers or cough or vomiting. Review of Systems Const: Denies: fever(s), chills, body aches or change in appetite Eyes: Denies: blurry vision or eye discomfort ENMT: Denies: throat pain or dental pain Card: Denies: chest pain Resp: Denies: dyspnea GI: Denies: abdominal pain, nausea, vomiting or diarrhea Musc: Denies: neck pain or back pain Skin/Breast: Denies: rash Neuro: Reports: confusion; Denies: headache(s) [facility] ED PFSH: Medical History (Updated 11/20/23 @ 14:40 by Jaya Caputo MD) Diverticulitis Intention tremor Unintentional weight loss Asthenia Actinic keratoses Lung nodules Neuralgia Mass of spine Mild anemia Obstructive sleep apnea 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 Cervical pain Peripheral neuropathy, idiopathic Atherosclerosis of arteries Mood disorder 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 Poor compliance with medication Depression Cognitive impairment Cerebral AV malformation Diabetes Mixed hyperlipidemia Surgical History History of cholecystectomy History of colon resection Family History Other Cancer Social History Smoking and tobacco/nicotine status: never used tobacco/nicotine Second hand smoke exposure: No Alcohol intake: never Substance/Drug Use: never Lives independently: Yes Household members: spouse Marital status: Current occupational status: retired Previous occupational history: [employer] Current gender identity: Male Special naldo needs: No Agree to transfusion: Yes Physical Exam Const: COMMON NORMALS: no acute distress, patient oriented x3 and healthy appearing HENMT: COMMON NORMALS: normocephalic and atraumatic HEAD & SCALP: normocephalic and atraumatic Eye: COMMON NORMALS: Equal, round and reactive pupils present and EOMs intact bilaterally PUPIL: Yes Equal, round and reactive pupils present Neck/C-Spine: COMMON NORMALS: full ROM and supple Chest: COMMONS NORMALS: normal inspection of the chest and normal palpation of entire chest wall Resp: COMMON NORMALS: normal respiratory effort, No retractions, No use of accessory muscles and clear to auscultation bilaterally AUSCULTATION: clear to auscultation bilaterally Cardio: COMMON NORMALS: regular rate, regular rhythm and No murmurs present (Cardio) RATE: regular rate RHYTHM: regular rhythm GI: COMMON NORMALS: Normal to inspection, nondistended, normoactive bowel sounds present, Soft to palpation, non-tender and no masses PALPATION: Yes Soft to palpation Extremity: COMMON NORMALS: normal to inspection and full ROM Neuro: COMMON NORMALS: patient oriented x3, moves all extremities and no focal motor deficits Psych: COMMON NORMALS: mental status grossly normal, Normal thought process present and cooperative THOUGHT PROCESS: Normal thought process present Skin: COMMON NORMALS: no rashes or lesions noted and no wounds GENERAL SKIN EXAM: no rashes or lesions noted Course Vital Signs: Vital signs: Vital Signs Temperature 97.9 F 11/20/23 11:35 Pulse Rate 84 11/20/23 14:00 Respiratory Rate 20 H 11/20/23 11:35 Blood Pressure 131/64 11/20/23 14:00 Pulse Oximetry 94 11/20/23 14:00 Oxygen Delivery Me thod Room Air 11/20/23 11:35 MDM - Recheck/Abnormal Lab/Rx Medical Decision Making Patient presents with generalized weakness along with multiple status is improved after given dextrose his AMS likely from his hypoglycemic at home. He is found to have a pneumonia here likely causing some of his generalized weakness as well will start IV antibiotics spoke to the hospitalist will admit. Medical Records I reviewed the patient's medical records. Lab Data I reviewed the patient's lab results. 11/20/23 11:42 11/20/23 11:42 Radiology Impressions Chest X-Ray 11/20/23 12:14 IMPRESSION: 1. Central line. 2. Mild left lower lobe atelectasis or infiltrate. Head CT 11/20/23 13:02 IMPRESSION: 1. No acute intracranial hemorrhage or edema. 2. Mild atrophy and mild small vessel ischemic disease. Laboratory Results WBC 15.70 10^3/uL (3.29-11.43) H 11/20/23 11:42 RBC 2.55 10^6/uL (3.85-5.65) L 11/20/23 11:42 Hgb 7.70 g/dL (11.27-16.99) L 11/20/23 11:42 Hct 24.2 % (37-53) L 11/20/23 11:42 MCV 94.9 fl (82-101) 11/20/23 11:42 MCH 30.2 pg (27-33) 11/20/23 11:42 MCHC 31.8 g/dL (30-55) 11/20/23 11:42 RDW 15.6 % (12.1-15.1) H 11/20/23 11:42 Plt Count 162 10^3/cmm (157-399) 11/20/23 11:42 MPV 9.2 fL (7.4-10.4) 11/20/23 11:42 Neut % (Auto) 92.5 % 11/20/23 11:42 Lymph % (Auto) 1.7 % 11/20/23 11:42 [place] % (Auto) 3.4 % 11/20/23 11:42 Eos % (Auto) 1.1 % 11/20/23 11:42 Baso % (Auto) 0.5 % 11/20/23 11:42 Neut # (Auto) 14.53 10^3/uL (1.8-7.7) H 11/20/23 11:42 Lymph # (Auto) 0.3 10^3/uL (0.8-4.8) L 11/20/23 11:42 [place] # (Auto) 0.5 10^3/uL (0.2-0.9) 11/20/23 11:42 Eos # (Auto) 0.2 10^3/uL (0.0-0.8) 11/20/23 11:42 Baso # (Auto) 0.1 10^3/uL (0.0-0.1) 11/20/23 11:42 Nucleated RBC % (auto) 0 % 11/20/23 11:42 Nucleated RBCs # 0.0 /100WBC 11/20/23 11:42 Sodium 134 mmol/L (136-145) L 11/20/23 11:42 Potassium 3.5 mmol/L (3.5-5.1) 11/20/23 11:42 Chloride 92 mmol/L (98-107) L 11/20/23 11:42 Carbon Dioxide 31 mmol/L (22-29) H 11/20/23 11:42 Anion Gap 14.5 (5-19) 11/20/23 11:42 BUN 46 mg/dL (8-23) H 11/20/23 11:42 Creatinine 5.8 mg/dL (0.7-1.2) H* 11/20/23 11:42 GFR Calculation Not Reportable 11/20/23 11:42 Glucose 161 mg/dL (65-115) H 11/20/23 11:42 POC Glucose 108 mg/dL (70-110) 11/20/23 14:21 Calculated Osmolality 293 mOsm/kg (285-295) 11/20/23 11:42 Calcium 8.1 mg/dL (8.5-10.5) L 11/20/23 11:42 Total Bilirubin 0.3 mg/dL (0.15-1.2) 11/20/23 11:42 AST 20 U/L (0-40) 11/20/23 11:42 ALT 15 U/L (0-41) 11/20/23 11:42 Alkaline Phosphatase 34 U/L (40-130) L 11/20/23 11:42 Total Protein 5.6 g/dL (6.6-8.7) L 11/20/23 11:42 Albumin 2.6 g/dL (3.5-5.2) L 11/20/23 11:42 Globulin 3.0 g/dL (1.3-4.6) 11/20/23 11:42 Lipase 36 U/L (13-60) 11/20/23 11:42 All radiology interpretation(s) finalized by discharge EKG Data EKG 1: I personally reviewed and interpreted this EKG as follows: EKG interpretation date: 11/20/23 EKG interpretation time: 11:44 Interpretation: nsr hr [address] or t wave abnormalities qrs 91 qtc 424 Discharge Plan Discharge Patient Disposition: Admitted As Inpatient Clinical Impression: Hypoglycemia, Pneumonia Condition: Stable Prescriptions: No Action Levemir FlexTouch U100 Insulin 100 unit/mL (3 mL) insulin pen See Rx Instructions .ROUTE .COMPLEX Qty: 245 3RF Dose Instruction: INJECT 10 UNITS SUBCUTANEOUSLY IN THE MORNING AND 70 UNITS IN THE EVENING. Rx Instructions: INJECT 30 UNITS SUBCUTANEOUSLY IN THE MORNING AND 60 UNITS IN THE EVENING. clonazepam 1 mg tablet 1 mg PO DAILY Qty: 30 5RF Rx Instructions: one at bedtime aspirin 81 mg capsule 81 mg PO DAILY primidone 50 mg tablet 50 mg PO DAILY pantoprazole 40 mg tablet,delayed release (DR/EC) 40 mg PO BID Qty: 60 6RF duloxetine 60 mg capsule,delayed release(DR/EC) 60 mg PO DAILY Qty: 90 3RF insulin syringe-needle U-100 1 mL 31 gauge x 5/16 syringe See Rx Instructions .ROUTE .COMPLEX Qty: 100 3RF Dose Instruction: USE DIRECTED TO inject insulin Rx Instructions: USE DIRECTED TO inject insulin (DME) pen needle, diabetic [Comfort EZ [place]] 31 gauge x 5/16 needle See Rx Instructions .Route Qty: 100 3RF Rx Instructions: As directed (DME) Blood Glucose Test Strip See Rx Instructions .ROUTE .MEDSUPPLY Qty: 100 11RF Rx Instructions: to test 3 x day (DME) blood-glucose meter Misc See Rx Instructions .Route Qty: 1 0RF Rx Instructions: CHECK BLOOD SUGAR THREE TIMES DAILY (DME) lancets [TRUEplus Lancets] 30 gauge misc See Rx Instructions .ROUTE .COMPLEX Qty: 100 5RF Dose Instruction: USE THREE TIMES DAILY as directed Rx Instructions: USE THREE TIMES DAILY as directed Referrals: Bi Leon MD [Primary Care Provider] - Coding Level of Care Code ED Pizza Maker for Enrique Chi
[2023-11-20 12:12] LABS: Basophils # 0.1 10^3/uL (0.0-0.1); Basophils % 0.5 %; Eosinophils # 0.2 10^3/uL (0.0-0.8); Eosinophils % 1.1 %; Hematocrit 24.2 % (37-53); Lymphocytes # 0.3 10^3/uL (0.8-4.8); Lymphocytes % 1.7 %; Mean Corpuscular HGB Conc 31.8 g/dL (30-55); Mean Corpuscular Hemoglobin 30.2 pg (27-33); Mean Corpuscular Volume 94.9 fl (82-101); Mean Platelet Volume 9.2 fL (7.4-10.4); Monocytes # 0.5 10^3/uL (0.2-0.9); Monocytes % 3.4 %; Neutrophils # 14.53 10^3/uL (1.8-7.7); Neutrophils % 92.5 %; Nucleated Red Blood Cells % 0 %; Platelet Count 162 10^3/cmm (157-399); Red Blood Count 2.55 10^6/uL (3.85-5.65); Red Cell Distribution Width 15.6 % (12.1-15.1)
--- NOTE | 2023-11-20 12:14 | XRR_ITS ---
PROCEDURE INFORMATION: Exam: XR Chest Exam date and time: 11/20/2023 12:17 PM Age: 78 years old Clinical indication: Prior surgery; Surgery date: 6+ months; Surgery type: Aneurysm port; Patient HX: Weakness/hypoglycemic TECHNIQUE: Imaging protocol: Radiologic exam of the chest. Views: 1 view. COMPARISON: CR XR chest 1V portable [id number] 12/02/2022 3:55 AM FINDINGS: Tubes, catheters and devices: Multi lumen catheter enters from the right and terminates in the SVC. Lungs: Mild atelectasis or infiltrate developing in the left lower lobe. Pleural spaces: Unremarkable. No pleural effusion. No pneumothorax. Heart/Mediastinum: Unremarkable. No cardiomegaly. Bones/joints: Unremarkable. XR/XR chest 1V portable [id number] IMPRESSION: 1. Central line. 2. Mild left lower lobe atelectasis or infiltrate.
[2023-11-20 12:29] LABS: Alanine Aminotransferase 15 U/L (0-41); Albumin Level 2.6 g/dL (3.5-5.2); Alkaline Phosphatase 34 U/L (40-130); Aspartate Amino Transferase 20 U/L (0-40); Blood Urea Nitrogen 46 mg/dL (8-23); Calcium 8.1 mg/dL (8.5-10.5); Carbon Dioxide 31 mmol/L (22-29); Chloride 92 mmol/L (98-107); Creatinine Clr Calc Pharmacy 11.4392; Glucose 161 mg/dL (65-115); Lipase 36 U/L (13-60); Osmolality Calculated 293 mOsm/kg (285-295); Sodium 134 mmol/L (136-145); Total Bilirubin 0.3 mg/dL (0.15-1.2); Total Protein 5.6 g/dL (6.6-8.7)
[2023-11-20 12:30] LABS: Anion Gap 14.5 (5-19); Potassium 3.5 mmol/L (3.5-5.1)
[2023-11-20 12:35] LABS: Glucose Point of Care 113 mg/dL (70-110)
--- NOTE | 2023-11-20 13:02 | CT_ITS ---
WS: [id number] CT HEAD NONCONTRAST HISTORY: ams TECHNIQUE: Contiguous axial imaging performed through the brain in 2.5 mm imaging. Bone and soft tiss ue windows. Sagittal and coronal reformats reviewed. All CT scans at [facility] use at least one of these dose optimization techniques: automated exposure control; mA and/or kV adjustment per pa tient size (includes targeted exams where dose is matched to clinical indication); or iterative recon struction. DLP: 1151.48 mGy.cm COMPARISON: 10/01/2018 No acute intracranial hemorrhage, midline shift or mass effect. Mild atrophy and mild small vessel ischemic disease. No prior infarct. Ventricles: Normal size with no hydrocephalus. Numerous surgical sutures and postoperative changes are noted on the localizer in the RIGHT neck. Paranasal sinuses: As visualized are clear. Mastoid air cells: Well pneumatized. Calvarium and scalp: Skull is intact with no soft tissue edema or swelling. CT/CT head wo con* [id number] IMPRESSION: 1. No acute intracranial hemorrhage or edema. 2. Mild atrophy and mild small vessel ischemic disease.
[2023-11-20] MEDS: cefTRIAXone 1,000 MG in sodium chloride 0.9% (plus) 50 ML 100 MG IV ×2 (13:38→20:13)
[2023-11-20 14:25] LABS: Glucose Point of Care 108 mg/dL (70-110)
[2023-11-20] MEDS: azithromycin 500 MG in sodium chloride 0.9% 250 ML 250 MG IV (14:29)
--- NOTE | 2023-11-20 16:01 | P.CONIM_ITS ---
Providers/Reason For Consult 2 Consulting Physician/Specialty*: kommana/Nephrology Reason for Consult*: ESRD Primary Care Provider: Bi Leon MD History of Present Illness History of Present Illness Armin Mauricio Jameson is a 78 year old male with PMH of DM, Dyslipidimia Peripheral Neuropathy , JOSE G , ESRD-HD per MWF schedule presented with Hypoglycemia and Altered mental status. He was noted to be hypoglycemic and recieved 1 amp of D 50%. Pt missed hD today. Labs reviewed Review of Systems 2 Narrative: negative Medications/Allergies Home Medications Medication Instructions Recorded Confirmed Last Taken Type pantoprazole 40 mg tablet,delayed 40 mg PO BID #60 tabs 11/26/21 08/06/23 Unknown Rx release duloxetine 60 mg capsule,delayed 60 mg PO DAILY #90 caps 03/04/22 08/06/23 Unknown Rx release insulin syringe-needle U-100 1 mL See Rx Instructions .Route 04/10/22 08/06/23 Unknown Rx 31 gauge x 5/16 .COMPLEX #100 ea pen needle, diabetic 31 gauge x #100 ea 04/21/22 08/06/23 Unknown Rx 5/16 (Comfort EZ Pen [place]) blood sugar diagnostic (Blood #100 ea 07/15/22 08/06/23 Unknown Rx Glucose Test strips) blood-glucose meter #1 ea 07/15/22 08/06/23 Unknown Rx insulin detemir U-100 100 unit/mL See Rx Instructions .Route 02/26/23 08/06/23 Unknown Rx (3 mL) subcutaneous pen .COMPLEX #245 mL lancets 30 gauge (TRUEplus Lancets) #100 ea 05/18/23 08/06/23 Unknown Rx clonazepam 1 mg tablet 1 mg PO DAILY #30 tabs 06/11/23 08/06/23 Unknown Rx aspirin 81 mg capsule 81 mg PO DAILY 08/06/23 08/06/23 Unknown History primidone 50 mg tablet 50 mg PO DAILY 08/06/23 08/06/23 Unknown History Allergies Allergy/AdvReac Type Severity Reaction Status Date / Time metformin AdvReac ADR-Diarrhe Verified 08/06/23 12:12 a PFSH Acute 2 PFSH: Medical History (Updated 11/20/23 @ 16:35 by Beverley Rasheed MD) Diverticulitis Intention tremor Unintentional weight loss Asthenia Actinic keratoses Lung nodules Neuralgia Mass of spine Mild anemia Obstructive sleep apnea 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 Cervical pain Peripheral neuropathy, idiopathic Atherosclerosis of arteries Mood disorder 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 Poor compliance with medication Depression Cognitive impairment Cerebral AV malformation Diabetes Mixed hyperlipidemia Surgical History History of cholecystectomy History of colon resection Family History Other Cancer Social History Smoking and tobacco/nicotine status: never used tobacco/nicotine Second hand smoke exposure: No Alcohol intake: never Substance/Drug Use: never Lives independently: Yes Household members: spouse Marital status: Current occupational status: retired Previous occupational history: [employer] Current gender identity: Male Special naldo needs: No Agree to transfusion: Yes Vitals/I&O/Wt Last Vital Signs Temp 97.9 F 11/20/23 11:35 Pulse 91 11/20/23 15:30 Resp 20 H 11/20/23 11:35 BP 127/68 11/20/23 15:30 Pulse Ox 95 11/20/23 15:30 O2 Del Method Room Air 11/20/23 11:35 11/20/23 11/20/23 11/20/23 06:59 14:59 22:59 Intake Total 50 / 50 Balance 50 / 50 Weight last 48 hrs Weight 79.379 kg Physical Exam 2 Narrative: confused S1S2 RRR per report Lungs clear per report No edema Data 11/20/23 11:42 11/20/23 11:42 Micro: Microbiology 11/20/23 14:07 Blood Culture - Preliminary Blood SPECIMEN COLLECTED 11/20/23 14:11 Blood Culture - Preliminary Blood SPECIMEN COLLECTED A&P Assessment and plan (1) ESRD (end stage renal disease) on dialysis: 1. ESRD - HD per MWF , hD today UF as tolerated 2. DM , now admitted with Hypoglycemia 3. Anemia : SONAM with hD 4. Dementia , advanced alzeimers pt evaluated by audiovisual cart. Time spent 20 min Consult Attestations 2 Medical Necessity Statement: per sulaiman Coding Level of Care Code Acute Code for Chg Fwd Diagnoses ESRD (end stage renal disease) on dialysis N18.6; Z99.2
--- NOTE | 2023-11-20 16:58 | PC.HD ---
Heparin 1000 units loading dose administered via HD catheter venous port at 1640 per ribbon inker's orders.
--- NOTE | 2023-11-20 17:05 | PM.HP ---
Providers/Chief Complaint Admitting Physician: Sumit Lane MD Primary Care Provider: Bi Leon MD Chief Complaint: hypoglycemic History of Present Illness Armin Mauricio Jameson is a 78 year old male comes into the ER today after having a pretty severe hypoglycemic episode down in the 30s. states that this is unusual for him. He has been eating normally. Blood sugars have been very erratic though. Been feeling okay. Little bit of cough but no shortness of breath no fevers or sputum. No chest pain. No significant medication changes recently. He is on dialysis and is due for dialysis today. No recent infections that he is aware of. He also has pretty significant anemia when he came in here today. According to the family he has been having to receive blood off and on over the past few months. The cause of this was due to his renal failure. No blood in his stools or blood in his urine that they have noticed. 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 He apparently had 3 rounds of chemotherapy that did not seem to do any improvement. The last one was 3 weeks ago. He has not had any follow-up since then. Review of Systems Narrative: General: No chronic fevers or chronic weight changes. HEENT: No acute changes in vision. No acute hearing loss. No new difficulty swallowing. Heart: No new chest pain or recent issues with coronary disease. Lungs: No history of TB. No chronic lung disease. GI: No history of GI bleeding. No hepatitis. No chronic nausea or vomitting. Renal: No dysuria or frequency. No hematuria Neuro: No acute neurological changes or deficits. Musculoskeletal: No acutely worsening joint pain or swelling. Medications/Allergies Home Medications Medication Instructions Recorded Confirmed Last Taken Type pantoprazole 40 mg tablet,delayed 40 mg PO BID #60 tabs 11/26/21 08/06/23 Unknown Rx release duloxetine 60 mg capsule,delayed 60 mg PO DAILY #90 caps 03/04/22 08/06/23 Unknown Rx release insulin syringe-needle U-100 1 mL See Rx Instructions .Route 04/10/22 08/06/23 Unknown Rx 31 gauge x 11/11 .COMPLEX #100 ea pen needle, diabetic 31 gauge x #100 ea 04/21/22 08/06/23 Unknown Rx 5/16 (Comfort EZ Pen [place]) blood sugar diagnostic (Blood #100 ea 07/15/22 08/06/23 Unknown Rx Glucose Test strips) blood-glucose meter #1 ea 07/15/22 08/06/23 Unknown Rx insulin detemir U-100 100 unit/mL See Rx Instructions .Route 02/26/23 08/06/23 Unknown Rx (3 mL) subcutaneous pen .COMPLEX #245 mL lancets 30 gauge (TRUEplus Lancets) #100 ea 05/18/23 08/06/23 Unknown Rx clonazepam 1 mg tablet 1 mg PO DAILY #30 tabs 06/11/23 08/06/23 Unknown Rx aspirin 81 mg capsule 81 mg PO DAILY 08/06/23 08/06/23 Unknown History primidone 50 mg tablet 50 mg PO DAILY 08/06/23 08/06/23 Unknown History Allergies Allergy/AdvReac Type Severity Reaction Status Date / Time metformin AdvReac ADR-Diarrhe Verified 08/06/23 12:12 a PFSH Acute PFSH: Medical History (Updated 11/20/23 @ 17:[address] MD) Microscopic polyangiitis Diverticulitis Intention tremor Unintentional weight loss Asthenia Actinic keratoses Lung nodules Neuralgia Mass of spine Mild anemia Obstructive sleep apnea 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 Cervical pain Peripheral neuropathy, idiopathic Atherosclerosis of arteries Mood disorder 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 Poor compliance with medication Depression Cognitive impairment Cerebral AV malformation Diabetes Mixed hyperlipidemia Surgical History History of cholecystectomy History of colon resection Family History Other Cancer Social History Smoking and tobacco/nicotine status: never used tobacco/nicotine Second hand smoke exposure: No Alcohol intake: never Substance/Drug Use: never Lives independently: Yes Household members: spouse Marital status: Current occupational status: retired Previous occupational history: [employer] Current gender identity: Male Special naldo needs: No Agree to transfusion: Yes Vitals/I&O/Wt Last Vital Signs Temp 99.3 F 11/20/23 16:57 Pulse 96 11/20/23 16:57 Resp 18 11/20/23 16:57 BP 135/70 11/20/23 16:57 Pulse Ox 95 11/20/23 15:30 O2 Del Method Room Air 11/20/23 11:35 11/20/23 11/20/23 11/20/23 06:59 14:59 22:59 Intake Total 50 / 50 Balance 50 / 50 Weight last 48 hrs Weight 175 lb Physical Exam Narrative: General: No acute distress, Alert. Well nourished. HEENT: PERRLA, EOMI. vision grossly normal. Throat clear. Neck: supple, no adenopathy. Heart: Regular rate and rhythm. No murmurs, rubs or gallops. Normal capillary refill. Lungs: Clear to auscultation. No wheezes, rhonchi or rales. Abdomen: Positive bowel sounds. Non-tender, non-distended. No hepatosplenomegaly. No gaurding. Extremities: No clubbing, cyanosis, or edema. Negative Drew's. Data 11/20/23 11:42 11/20/23 11:42 Micro: Microbiology 11/20/23 14:07 Blood Culture - Preliminary Blood SPECIMEN COLLECTED 11/20/23 14:11 Blood Culture - Preliminary Blood SPECIMEN COLLECTED A&P Assessment and plan (1) Hypoglycemia: Not really sure what caused this episode of hypoglycemia. It may be from his pneumonia, however he has been relatively asymptomatic with that.. Blood sugars have been pretty erratic it sounds like but not usually this low. We will monitor his blood sugar closely here. Let him start eating again here. Gentle with restarting his medications. (2) Pneumonia: He does appear to have pneumonia on chest x-ray. Also has not elevated white blood cell count at 15.7. And a left shift. We will go ahead and start antibiotics with Rocephin and Zithromax. (3) ESRD (end stage renal disease) on dialysis: Nephrology consulted for dialysis. (4) Microscopic polyangiitis: Not sure how much this is playing into his overall picture. He probably needs a rheumatology referral as an outpatient. (5) Diabetes: Qualifiers: Diabetes mellitus type: type 2 Diabetes mellitus extermination supervisor insulin use: with extermination supervisor use Diabetes mellitus complication status: with hyperglycemia Qualified Code(s): E11.65 - Type 2 diabetes mellitus with hyperglycemia; Z79.4 - MCC (current) use of insulin (6) Anemia: Appears that this is probably from his end-stage renal disease. Will recheck his hemoglobin after his dialysis. Do further testing if needed. Hold off on transfusions for now. No obvious active GI bleed that we are aware of. Do some GI prophylaxis by continuing his Protonix that he takes currently. Attestations Medical Necessity Statement*: Patient is a 78-year-old gentleman who comes in with severe hypoglycemia and pneumonia requiring inpatient IV treatments. Coding Level of Care Code Acute Code for [facility] Diagnoses Hypoglycemia E16.2 Pneumonia J18.9 ESRD (end stage renal disease) on dialysis N18.6; Z99.2 Microscopic polyangiitis M31.7 Type 2 diabetes mellitus with hyperglycemia, with long-term current use of insulin E11.65; Z79.4 Diabetes mellitus type: type 2 Diabetes mellitus extermination supervisor insulin use: with extermination supervisor use Diabetes mellitus complication status: with hyperglycemia Anemia D64.9
[2023-11-20 17:25] LABS: Glucose Point of Care 99 mg/dL (70-110)
[2023-11-20 17:42] LABS: Hepatitis B Surface AB < 3.5 (11.5-1000); Hepatitis B Surface Antigen Non-Reactive (Nonreactive)
[2023-11-20] MEDS: pantoprazole DR 40 mg Tablet PO (20:12)
[2023-11-20] MEDS: ferrous sulfate EC 325 mg Tablet PO (20:12)
[2023-11-20 21:19] LABS: Glucose Point of Care 159 mg/dL (70-110)
--- NOTE | 2023-11-20 21:48 | PC.NURSE ---
pt has an order for 60 units of Lantus HS. Informed Dr. Rapp and she advised to hold this dose.
[2023-11-20] MEDS: azithromycin 250 MG in sodium chloride 0.9% 250 ML IV (22:47)
[2023-11-20] MEDS: water for injection-sterile SDV 10 mL 4.79999999999999982 ML XX (22:48)
[2023-11-21] VITALS (17 sets, daily range): BP systolic 124–153; BP diastolic 62–86; PULSE 84–95; RESP 15–18; TEMP 36.1–36.9; O2SAT 87–94
--- NOTE | 2023-11-21 01:15 | PC.NURSE ---
This nurse responded to patient's bathroom call light. Upon entering the room, patient was found supine in the floor with his head next to the toilet and feet were out the bathroom door. Patient is unable to tell if he was coming from the bathroom or going to the bathroom or the details of his fall. Patient stated he did hit his head. This nurse had CONTRERAS Amaro obtain vital signs and inform patient's care nurse, HANNAH Reynoso. Patient was assessed and noted to have a skin tear to right posterior elbow and a bump to the posterior head. Patient was assisted up and to the bed where patient was cleaned up.
[2023-11-21 01:25] LABS: Glucose Point of Care 205 mg/dL (70-110)
--- NOTE | 2023-11-21 01:32 | CTR_ITS ---
PROCEDURE INFORMATION: Exam: CT Head Without Contrast Exam date and time: 11/21/2023 1:47 AM Age: 78 years old Clinical indication: Injury or trauma; Fall; Blunt trauma (contusions or hematomas); Prior surgery; Surgery date: 6+ months; Surgery type: Aneurysm repair; Patient HX: Patient fell striking occiput on floor. ; Additional info: Fell and hit head TECHNIQUE: Imaging protocol: Computed tomography of the head without contrast. Radiation optimization: All CT scans at this facility use at least one of these dose optimization techniques: automated exposure control; mA and/or kV adjustment per patient size (includes targeted exams where dose is matched to clinical indication); or iterative reconstruction. COMPARISON: CT head wo con* [id number] 11/20/2023 1:15 PM RADIATION DOSE METRICS: Total DLP (mGy-cm): 1027.13 FINDINGS: Brain: There is moderate cerebral atrophy. There is moderate diffuse heterogeneity of the white matter attenuation, consistent with chronic white matter ischemic changes. Negative for acute intracranial hemorrhage. Negative for mass effect on the brain. Negative for midline shift of brain. Puckett matter and white matter interfaces are unremarkable. Cerebral ventricles: No ventriculomegaly. Paranasal sinuses: Visualized sinuses are unremarkable. No fluid levels. Mastoid air cells: Visualized mastoid air cells are well aerated. Bones: Unremarkable. No acute fracture. Soft tissues: Streak artifact from liquid embolic is noted in the right posterior occipital soft tissues. CT/CT head wo con* [id number] IMPRESSION: Negative for acute intracranial pathology.
[2023-11-21 05:36] LABS: Glucose Point of Care 193 mg/dL (70-110)
[2023-11-21] MEDS: insulin glargine 100 units/1 mL 20 UNIT SUBCUT (06:08)
[2023-11-21 06:22] LABS: Basophils % 0.2 %; Eosinophils # 0.1 10^3/uL (0.0-0.8); Eosinophils % 0.4 %; Lymphocytes # 0.6 10^3/uL (0.8-4.8); Lymphocytes % 3.6 %; Mean Corpuscular HGB Conc 31.9 g/dL (30-55); Mean Corpuscular Hemoglobin 29.7 pg (27-33); Mean Corpuscular Volume 93.2 fl (82-101); Mean Platelet Volume 9.8 fL (7.4-10.4); Monocytes # 0.7 10^3/uL (0.2-0.9); Monocytes % 3.9 %; Neutrophils % 91.1 %; Nucleated Red Blood Cells % 0 %; Platelet Count 167 10^3/cmm (157-399); Red Blood Count 2.19 10^6/uL (3.85-5.65); Red Cell Distribution Width 15.8 % (12.1-15.1); White Blood Count 17.12 10^3/uL (3.29-11.43)
[2023-11-21 06:28] LABS: Hematocrit 20.4 % (37-53)
[2023-11-21 06:43] LABS: Anion Gap 14.7 (5-19); Blood Urea Nitrogen 26 mg/dL (8-23); Calcium 8.2 mg/dL (8.5-10.5); Carbon Dioxide 28 mmol/L (22-29); Chloride 94 mmol/L (98-107); Creatinine Clr Calc Pharmacy 16.1766; Glucose 173 mg/dL (65-115); Osmolality Calculated 285 mOsm/kg (285-295); Potassium 3.7 mmol/L (3.5-5.1); Sodium 133 mmol/L (136-145)
[2023-11-21] MEDS: duloxetine 60 mg Capsule PO (08:45)
[2023-11-21] MEDS: ferrous sulfate EC 325 mg Tablet PO ×3 (08:45→18:13)
[2023-11-21] MEDS: aspirin 81 mg EC Tablet PO (08:45)
[2023-11-21] MEDS: pantoprazole DR 40 mg Tablet PO ×2 (08:45→18:13)
[2023-11-21] MEDS: CLONazepam 1 mg Tablet PO (08:45)
--- NOTE | 2023-11-21 09:21 | PC.PHAR ---
PT STATES DOES NOT KNOW WHAT MEDICATIONS HE TAKES. SPOKE WITH , WHO IS DRIVING, AND CAN'T VERIFY MEDICATIONS SAFELY. SHE WILL ARRIVE BY 10AM TO VERIFY PT MEDS. 11/21/23
--- NOTE | 2023-11-21 09:53 | P.PN_ITS ---
Subjective 2 Subjective: The patient is doing well today. He has a cough, however it is relatively mild at this point and nonproductive. He denies any chest pains or significant shortness of breath. He will get set up for dialysis today and will be getting a blood transfusion with that. Vitals/I&O/Wt Last Vital Signs Temp 98.0 F 11/21/23 07:28 Pulse 91 11/21/23 07:28 Resp 15 11/21/23 07:28 BP 150/76 11/21/23 07:28 Pulse Ox 92 11/21/23 07:28 O2 Del Method Nasal Cannula 11/21/23 07:28 O2 Flow Rate 3 11/20/23 16:30 11/20/23 11/21/23 11/21/23 22:59 06:59 14:59 Intake Total 600 / 650 250 / 900 360 / 360 Output Total 2800 / 2800 Balance -2200 / -2150 250 / -1900 360 / 360 Weight last 48 hrs Weight 153 lb 12.8 oz Weight 151 lb 3.794 oz Weight 156 lb 4 oz Weight 175 lb Physical Exam 2 Narrative: General: Alert and oriented x 3. In no acute distress. Mouth: No erythema or tonsilar enlargement. No masses noted. Neck: No thyromegaly. No lymphadenopathy. Heart: Regular rate and rhythm. No murmurs. Lungs: Good air entry bilaterally with mild crackles and wheezes at the bilateral bases without significant rhonchi. Abdomen: Soft, non-tender. No hepatosplenomegaly. Extremities: No pitting edema. Data 11/21/23 05:01 11/21/23 05:01 Micro: Microbiology 11/20/23 14:07 Blood Culture - Preliminary Blood SPECIMEN COLLECTED 11/20/23 14:11 Blood Culture - Preliminary Blood SPECIMEN COLLECTED A&P Assessment and plan (1) Pneumonia: The patient has pneumonia in the left lung base and an elevated white blood cell count of 17 today. This has increased from 15.7 yesterday to he is currently on Rocephin and azithromycin for treatment. Will continue this and watch cultures. If this is not showing signs of improvement, we may need to change antibiotic treatment. I will order an incentive spirometer. (2) Anemia: Patient is significantly anemic with a hemoglobin of 6.5 that is decreased from 7.7. The patient will receive a blood transfusion and likely dialysis associated with this. I appreciate nephrology's assistance with this patient. (3) ESRD (end stage renal disease) on dialysis: Continue with treatment per nephrology. (4) Diabetes: The patient's blood sugars are currently well-controlled. Patient blood sugar in the ER was 30. This could have been due to the above infection. We will continue with current dose of insulin glargine and watch Accu-Cheks. For now we will hold off on sliding scale. Qualifiers: Diabetes mellitus type: type 2 Diabetes mellitus laborer marine terminal insulin use: with laborer marine terminal use Diabetes mellitus complication status: with hyperglycemia Qualified Code(s): E11.65 - Type 2 diabetes mellitus with hyperglycemia; Z79.4 - half-way (current) use of insulin Attestations 2 Medical Necessity Statement*: The patient's stay will cross 2 midnights due to continued need for treatment of his significant anemia and pneumonia. He continues to need IV antibiotics for treatment of the pneumonia. Coding Level of Care Code Acute Code for [facility] Diagnoses Pneumonia J18.9 Anemia D64.9 ESRD (end stage renal disease) on dialysis N18.6; Z99.2 Type 2 diabetes mellitus with hyperglycemia, with long-term current use of insulin E11.65; Z79.4 Diabetes mellitus type: type 2 Diabetes mellitus laborer marine terminal insulin use: with assisted use Diabetes mellitus complication status: with hyperglycemia
--- NOTE | 2023-11-21 10:15 | P.PN_ITS ---
Subjective 2 Subjective: weak, lethargic, +cough, no CP, n/v/f/c/chery. Medications: Reviewed: Yes Medication Review Details: Current Medications Acetaminophen (Acetaminophen 500 Mg Tablet) 1,000 mg PO Q6H PRN PRN Reason: MILD PAIN OR INCREASE TEMP Aspirin (Aspirin 81 Mg Ec Tablet) 81 mg PO DAILY [facility] Last Admin: 11/21/23 08:45 Dose: 81 mg Clonazepam (Clonazepam 1 Mg Tablet) 1 mg PO DAILY [facility] Last Admin: 11/21/23 08:45 Dose: 1 mg Duloxetine HCl (Duloxetine 60 Mg Capsule) 60 mg PO DAILY [facility] Last Admin: 11/21/23 08:45 Dose: 60 mg Ferrous Sulfate (Ferrous Sulfate Ec 325 Mg Tablet) 325 mg PO TIDWM [facility] Last Admin: 11/21/23 08:45 Dose: 325 mg Sodium Chloride (Sodium Chloride 0.9%) 1,000 mls @ 0 mls/hr IV .Q0M PRN PRN Reason: hypotension or symptomatic Albumin Human (Albumin) 12.5 gm in 50 mls @ 60 mls/hr IV PRN PRN PRN Reason: Hypotension and/or symptomatic Ceftriaxone Sodium 1,000 mg/ (Sodium Chloride) 50 mls @ 100 mls/hr IV Q24H [facility]; Protocol Last Infusion: 11/20/23 21:45 Dose: Infused Azithromycin 250 mg/ Sodium (Chloride) 250 mls @ 250 mls/hr IV Q24H [facility]; Protocol Last Infusion: 11/21/23 00:08 Dose: Infused Insulin Glargine (Insulin Glargine 100 Units/1 Ml) 60 unit SUBCUT BEDTIME [facility] Last Admin: 11/20/23 21:35 Dose: Not Given Insulin Glargine (Insulin Glargine 100 Units/1 Ml) 20 unit SUBCUT QAM [facility] Last Admin: 11/21/23 06:08 Dose: 20 unit Ondansetron HCl (Ondansetron 2 Mg/Ml Sdv 2 Ml) 4 mg IVP Q4H PRN PRN Reason: NAUSEA AND VOMITING Pantoprazole Sodium (Pantoprazole Dr 40 Mg Tablet) 40 mg PO BID [facility] Last Admin: 11/21/23 08:45 Dose: 40 mg Sodium Chloride (Sodium Chloride 0.9% 100 Ml Bag) 50 ml IV PRN PRN PRN Reason: Blood transfusion prime and flush Stop: 11/22/23 06:33 Vitals/I&O/Wt Last Vital Signs Temp 98.0 F 11/21/23 07:28 Pulse 91 11/21/23 07:28 Resp 15 11/21/23 07:28 BP 150/76 11/21/23 07:28 Pulse Ox 92 11/21/23 07:28 O2 Del Method Nasal Cannula 11/21/23 07:28 O2 Flow Rate 3 11/20/23 16:30 11/20/23 11/21/23 11/21/23 22:59 06:59 14:59 Intake Total 600 / 650 250 / 900 360 / 360 Output Total 2800 / 2800 Balance -2200 / -2150 250 / -1900 360 / 360 Weight last 48 hrs Weight 69.763 kg Weight 68.6 kg Weight 70.874 kg Weight 79.379 kg Physical Exam 2 Narrative: comfortable , nc 02 VS noted heent- nc/at, eomi neck supple lungs crackles heart regular abd soft, +BS ext no edema access rt ij PErmacath neuro- a,a, o Data 11/21/23 05:01 11/21/23 05:01 Micro: Microbiology 11/20/23 14:07 Blood Culture - Preliminary Blood SPECIMEN COLLECTED 11/20/23 14:11 Blood Culture - Preliminary Blood SPECIMEN COLLECTED A&P Assessment and plan (1) ESRD (end stage renal disease) on dialysis: 78 yr old man 1. ESRD - HD MWF. extra HD today for volume removal 2. PNA- renal dose abx 3. anemia - check iron studies 4. DM 5. HTN - monitor w/ dialysis seen and examined w/ RN - telehealth visit consent scott telehealth obtained from pt Plan see above Attestations 2 Medical Necessity Statement*: esrd, PNA, anemia Time Spent in Patient Care: 16 - 35 minutes Coding Level of Care Code Acute Code for [facility] Fwd Diagnoses ESRD (end stage renal disease) on dialysis N18.6; Z99.2
[2023-11-21 11:22] LABS: Glucose Point of Care 315 mg/dL (70-110)
[2023-11-21 16:12] LABS: Glucose Point of Care 159 mg/dL (70-110)
[2023-11-21 16:22] LABS: Hematocrit 28.5 % (37-53)
[2023-11-21 16:42] LABS: Calcium 7.8 mg/dL (8.5-10.5); Iron 95 ug/dL (59-158); Percent Saturation 77.8 % (20-50); Total Iron Binding Capacity 122 mcg/dl; Unsaturated Iron Binding 27 ug/dL (112-347)
[2023-11-21 16:48] LABS: Parathyroid Hormone 85.6 pg/mL (15-65)
[2023-11-21 17:02] LABS: Ferritin 2771 ng/mL (30-400)
[2023-11-21] MEDS: cefTRIAXone 1,000 MG in sodium chloride 0.9% (plus) 50 ML 100 MG IV (19:55)
[2023-11-21 20:58] LABS: Glucose Point of Care 266 mg/dL (70-110)
[2023-11-21] MEDS: water for injection-sterile SDV 10 mL 4.79999999999999982 ML IVP (22:57)
[2023-11-21] MEDS: azithromycin 250 MG in sodium chloride 0.9% 250 ML IV (22:57)
[2023-11-21] MEDS: insulin glargine 100 units/1 mL 60 UNIT SUBCUT (22:58)
[2023-11-22] VITALS: BP 144/77; PULSE 88; RESP 16; TEMP 36.8; O2SAT 90
[2023-11-22 04:00] VITALS: BP 177/83; PULSE 89; RESP 20; TEMP 36.5; O2SAT 90
[2023-11-22 05:32] LABS: Glucose Point of Care 32 mg/dL (70-110)
[2023-11-22 05:43] LABS: Glucose Point of Care 31 mg/dL (70-110)
--- NOTE | 2023-11-22 05:49 | PC.NURSE ---
Addendum entered by Ngear Silvestre RN 11/22/23 06:12: Dr. Rapp gave orders to give the amp of D50W, recheck blood sugar, and if pt is still hypoglycemic start D10W drip at 100mLs/hr and move to ICU. Original Note: Pt had blood sugar of 32. The patient was given orange juice, crackers, and milk. Recheck after the patient ate and drank showed his blood sugar was 31. The patient had no hypoglycemia protocol ordered; supervisor bottle house cleaners advised to start hypoglycemic protocol and give syringe of D50. This nurse administered it.
--- NOTE | 2023-11-22 05:50 | PC.NURSE ---
HYPOGLYCEMIC patient was sugar checked per schedule, found to be 32 mg/dL. patient was still alert and orientated. instructed to drink juice with sugar, chocolate milk, and crackers while hypoglycemic protocol reviewed in patient mar. patient was found to have no protocol for hypoglycemia in place. charge nurse placed order for hypoglycemic protocol, but when attempts were made to remove D10 IVF from the pyxis, medication was not available to pull as a PRN protocol med as well as not available to override, the only option for treatment was a D50 syringe. as it was recheck time, patients blood sugar was at 31 mg/dL. instructional writer pulled D50 syringe with supervisor dimension warehouse approval and charge nurse Bev Silvestre RN administered medication to patient. 20 minutes later patient recheck was 148 mg/dL. Dr Rapp was contacted and approved treatment of patient with orders for transfer of patient to ICU if blood sugar does not maintain safe parameters.
[2023-11-22 05:56] VITALS: BMI 20.7
[2023-11-22] MEDS: dextrose 50% syringe 50 mL (06:08)
[2023-11-22 06:14] LABS: Basophils # 0.1 10^3/uL (0.0-0.1); Basophils % 0.3 %; Eosinophils % 0.1 %; Hematocrit 31.6 % (37-53); Lymphocytes # 0.5 10^3/uL (0.8-4.8); Lymphocytes % 3.2 %; Mean Corpuscular HGB Conc 33.9 g/dL (30-55); Mean Corpuscular Hemoglobin 29.1 pg (27-33); Mean Corpuscular Volume 85.9 fl (82-101); Mean Platelet Volume 8.7 fL (7.4-10.4); Monocytes # 0.8 10^3/uL (0.2-0.9); Monocytes % 4.8 %; Neutrophils # 14.17 10^3/uL (1.8-7.7); Neutrophils % 90.1 %; Nucleated Red Blood Cells % 0 %; Platelet Count 194 10^3/cmm (157-399); Red Blood Count 3.68 10^6/uL (3.85-5.65); Red Cell Distribution Width 17.7 % (12.1-15.1); White Blood Count 15.72 10^3/uL (3.29-11.43)
[2023-11-22 06:20] LABS: Glucose Point of Care 148 mg/dL (70-110)
[2023-11-22 06:30] LABS: Alanine Aminotransferase 19 U/L (0-41); Alkaline Phosphatase 51 U/L (40-130); Anion Gap 12.9 (5-19); Aspartate Amino Transferase 24 U/L (0-40); Blood Urea Nitrogen 26 mg/dL (8-23); Calcium 8.1 mg/dL (8.5-10.5); Carbon Dioxide 29 mmol/L (22-29); Chloride 97 mmol/L (98-107); Globulin 3.7 g/dL (1.3-4.6); Magnesium 1.9 mg/dL (1.7-2.3); Osmolality Calculated 283 mOsm/kg (285-295); Phosphorus 2.4 mg/dL (2.5-4.5); Sodium 136 mmol/L (136-145); Total Bilirubin 0.3 mg/dL (0.15-1.2); Total Protein 6.7 g/dL (6.6-8.7)
[2023-11-22 06:33] LABS: Glucose 31 mg/dL (65-115); Potassium 2.9 mmol/L (3.5-5.1)
--- NOTE | 2023-11-22 07:38 | PM.PN ---
Subjective Subjective: at baseline, confused, weak. he states that he feels better. no n/v/f/c/chery/d Medications: Reviewed: Yes Medication Review Details: Current Medications Acetaminophen (Acetaminophen 500 Mg Tablet) 1,000 mg PO Q6H PRN PRN Reason: MILD PAIN OR INCREASE TEMP Aspirin (Aspirin 81 Mg Ec Tablet) 81 mg PO DAILY [facility] Last Admin: 11/21/23 08:45 Dose: 81 mg Clonazepam (Clonazepam 1 Mg Tablet) 1 mg PO DAILY [facility] Last Admin: 11/21/23 08:45 Dose: 1 mg Duloxetine HCl (Duloxetine 60 Mg Capsule) 60 mg PO DAILY [facility] Last Admin: 11/21/23 08:45 Dose: 60 mg Ferrous Sulfate (Ferrous Sulfate Ec 325 Mg Tablet) 325 mg PO TIDWM [facility] Last Admin: 11/21/23 18:13 Dose: 325 mg Sodium Chloride (Sodium Chloride 0.9%) 1,000 mls @ 0 mls/hr IV .Q0M PRN PRN Reason: hypotension or symptomatic Albumin Human (Albumin) 12.5 gm in 50 mls @ 60 mls/hr IV PRN PRN PRN Reason: Hypotension and/or symptomatic Ceftriaxone Sodium 1,000 mg/ (Sodium Chloride) 50 mls @ 100 mls/hr IV Q24H [facility]; Protocol Last Infusion: 11/21/23 22:19 Dose: Infused Azithromycin 250 mg/ Sodium (Chloride) 250 mls @ 250 mls/hr IV Q24H [facility]; Protocol Last Infusion: 11/22/23 00:12 Dose: Infused Insulin Glargine (Insulin Glargine 100 Units/1 Ml) 60 unit SUBCUT BEDTIME [facility] Last Admin: 11/21/23 22:58 Dose: 60 unit Insulin Glargine (Insulin Glargine 100 Units/1 Ml) 20 unit SUBCUT QAM [facility] Last Admin: 11/22/23 06:01 Dose: Not Given Ondansetron HCl (Ondansetron 2 Mg/Ml Sdv 2 Ml) 4 mg IVP Q4H PRN PRN Reason: NAUSEA AND VOMITING Pantoprazole Sodium (Pantoprazole Dr 40 Mg Tablet) 40 mg PO BID [facility] Last Admin: 11/21/23 18:13 Dose: 40 mg Vitals/I&O/Wt Last Vital Signs Temp 97.7 F 11/22/23 04:00 Pulse 89 11/22/23 04:00 Resp 20 H 11/22/23 04:00 BP 177/83 11/22/23 04:00 Pulse Ox 90 11/22/23 04:00 O2 Del Method Nasal Cannula 11/22/23 04:00 O2 Flow Rate 2 11/22/23 04:00 11/21/23 11/22/23 11/22/23 22:59 06:59 14:59 Intake Total 810 / 1170 430 / 1600 Output Total 2300 / 2300 Balance -1490 / -1130 430 / -700 Weight last 48 hrs Weight 69.49 kg Weight 69.7 kg Weight 69.763 kg Weight 68.6 kg Weight 70.874 kg Weight 79.379 kg Physical Exam Narrative: comfortable , nc 02 VS noted heent- nc/at, eomi neck supple lungs clear heart regular abd soft, +BS ext no edema access rt ij PErmacath neuro- a,a, o x1-2. seen and examined w/ RN- telehealth visit Data 11/22/23 05:41 11/22/23 05:41 Micro: Microbiology 11/20/23 14:07 Blood Culture - Preliminary Blood NEGATIVE TO DATE 11/20/23 14:11 Blood Culture - Preliminary Blood NEGATIVE TO DATE A&P Assessment and plan (1) ESRD (end stage renal disease) on dialysis: 78 yr old man 1. ESRD - HD MWF. s/p extra dialysis yesterday-give kdur now 2. PNA- renal dose abx 3. anemia - ferritin 2771- no need for iron, epo as needed 4. DM- sugars very low now. dec meds per medical doctor/ hospitalist 5. HTN - monitor w/ dialysis. will add amlodipine seen and examined w/ RN - telehealth visit consent for telehealth obtained from pt Plan see above Attestations Medical Necessity Statement*: pna, esrd, anemia, dementia Time Spent in Patient Care: 16 - 35 minutes Coding Level of Care Code Acute Code for Chg Fwd Diagnoses ESRD (end stage renal disease) on dialysis N18.6; Z99.2
[2023-11-22 08:00] VITALS: BP 155/89; PULSE 82; RESP 16; TEMP 36.4; O2SAT 95
[2023-11-22] MEDS: CLONazepam 1 mg Tablet PO (09:42)
[2023-11-22] MEDS: pantoprazole DR 40 mg Tablet PO ×2 (09:42→18:12)
[2023-11-22] MEDS: aspirin 81 mg EC Tablet PO (09:42)
[2023-11-22] MEDS: amlodipine 5 mg Tablet PO (09:42)
[2023-11-22] MEDS: potassium chloride ER 20 mEq Tablet PO (09:43)
[2023-11-22] MEDS: duloxetine 60 mg Capsule PO (09:43)
[2023-11-22 09:48] LABS: Glucose Point of Care 148 mg/dL (70-110)
--- NOTE | 2023-11-22 10:55 | XRR_ITS ---
PROCEDURE INFORMATION: Exam: XR Chest Exam date and time: 11/22/2023 3:20 PM Age: 78 years old Clinical indication: Other: Pneumonia TECHNIQUE: Imaging protocol: Radiologic exam of the chest. Views: 1 view. COMPARISON: CR XR chest 1V portable [id number] 11/20/2023 12:17 PM FINDINGS: Tubes, catheters and devices: Right-sided central catheter tip projecting over the expected region of the superior vena cava/right atrial junction. Lungs: Increasing left perihilar and bilateral infrahilar infiltrates. Pleural spaces: No pleural effusion. No pneumothorax. Heart/Mediastinum: No cardiomegaly. Bones/joints: No acute bony abnormality. XR/XR chest 1V portable [id number] IMPRESSION: Increasing left perihilar and bilateral infrahilar infiltrates.
[2023-11-22 12:00] VITALS: BP 162/84; PULSE 82; RESP 18; TEMP 36.8; O2SAT 94
[2023-11-22 12:01] LABS: Glucose Point of Care 103 mg/dL (70-110)
[2023-11-22 16:00] VITALS: BP 153/84; PULSE 88; RESP 17; TEMP 37.2; O2SAT 95
[2023-11-22 16:37] LABS: Glucose Point of Care 151 mg/dL (70-110)
--- NOTE | 2023-11-22 17:25 | PM.PN ---
Subjective Subjective: The patient is starting to feel better overall, however continues to feel weak in general. He still has a cough as well. He has been getting dialysis and has been getting blood with dialysis. He would like to go home when possible. Vitals/I&O/Wt Last Vital Signs Temp 99.0 F 11/22/23 16:00 Pulse 88 11/22/23 16:00 Resp 17 11/22/23 16:00 BP 153/84 11/22/23 16:00 Pulse Ox 95 11/22/23 16:00 O2 Del Method Nasal Cannula 11/22/23 16:00 O2 Flow Rate 2 11/22/23 04:00 11/22/23 11/22/23 11/22/23 06:59 14:59 22:59 Intake Total 430 / 1600 600 / 600 Balance 430 / -700 600 / 600 Weight last 48 hrs Weight 153 lb 3.2 oz Weight 153 lb 10.595 oz Weight 153 lb 12.8 oz Weight 151 lb 3.794 oz Physical Exam Narrative: General: Alert and oriented x 3. In no acute distress. Mouth: No erythema or tonsilar enlargement. No masses noted. Neck: No thyromegaly. No lymphadenopathy. Heart: Regular rate and rhythm. No murmurs. Lungs: Good air entry bilaterally with mild crackles and wheezes at the bilateral bases without significant rhonchi. Abdomen: Soft, non-tender. No hepatosplenomegaly. Extremities: Trace pitting edema. Data 11/22/23 05:41 11/22/23 05:41 Micro: Microbiology 11/20/23 14:07 Blood Culture - Preliminary Blood NEGATIVE TO DATE 11/20/23 14:11 Blood Culture - Preliminary Blood NEGATIVE TO DATE A&P Assessment and plan (1) Pneumonia: The patient has pneumonia in the left lung base and continues to have an elevated white blood cell count. It is mildly improved, however not significantly. Repeat chest x-ray shows signs of worsening pneumonia. I will go ahead and switch antibiotics to Zosyn from Rocephin to give a broader coverage. (2) Anemia: The patient's hemoglobin has significantly improved with transfusion and dialysis. We will continue to monitor. (3) ESRD (end stage renal disease) on dialysis: Continue with treatment per nephrology. (4) Diabetes: The patient had another low blood sugar episode overnight where his blood sugar dropped into the 30s. I will decrease his dose of long-acting insulin from 60 units down to 40 as he likely has decreased overall intake. 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 His pneumonia has not shown signs of improvement by way of x-ray. I will switch him to Zosyn. Once he is starting to show signs of improvement, we will plan to discharge him home at that time. 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
[2023-11-22] MEDS: piperacillin-tazobactam 3.375 GM in sodium chloride 0.9% (plus) 50 ML IV (18:12)
[2023-11-22 19:50] VITALS: BP 159/92; PULSE 86; RESP 17; TEMP 36.8; O2SAT 97
[2023-11-22 21:08] LABS: Glucose Point of Care 156 mg/dL (70-110)
[2023-11-22] MEDS: azithromycin 250 MG in sodium chloride 0.9% 250 ML IV (22:28)
[2023-11-23] VITALS (8 sets, daily range): BP systolic 155–179; BP diastolic 71–95; PULSE 83–90; RESP 16–18; TEMP 36.4–36.9; O2SAT 93–97
[2023-11-23] MEDS: piperacillin-tazobactam 3.375 GM in sodium chloride 0.9% (plus) 50 ML IV ×3 (01:52→21:42)
[2023-11-23 05:11] LABS: Basophils # 0.1 10^3/uL (0.0-0.1); Basophils % 0.6 %; Eosinophils # 0.1 10^3/uL (0.0-0.8); Eosinophils % 0.7 %; Hematocrit 29.9 % (37-53); Lymphocytes # 0.4 10^3/uL (0.8-4.8); Lymphocytes % 3.4 %; Mean Corpuscular HGB Conc 32.8 g/dL (30-55); Mean Corpuscular Hemoglobin 29.1 pg (27-33); Mean Corpuscular Volume 88.7 fl (82-101); Mean Platelet Volume 8.7 fL (7.4-10.4); Monocytes # 0.6 10^3/uL (0.2-0.9); Monocytes % 5.8 %; Neutrophils # 9.31 10^3/uL (1.8-7.7); Neutrophils % 88.2 %; Nucleated Red Blood Cells % 0 %; Platelet Count 176 10^3/cmm (157-399); Red Blood Count 3.37 10^6/uL (3.85-5.65); Red Cell Distribution Width 17.2 % (12.1-15.1); White Blood Count 10.55 10^3/uL (3.29-11.43)
[2023-11-23 05:31] LABS: Alanine Aminotransferase 14 U/L (0-41); Albumin Level 2.5 g/dL (3.5-5.2); Alkaline Phosphatase 44 U/L (40-130); Anion Gap 15.5 (5-19); Aspartate Amino Transferase 17 U/L (0-40); Blood Urea Nitrogen 34 mg/dL (8-23); Calcium 7.7 mg/dL (8.5-10.5); Carbon Dioxide 25 mmol/L (22-29); Chloride 97 mmol/L (98-107); Creatinine Clr Calc Pharmacy 12.5662; Globulin 3.3 g/dL (1.3-4.6); Glucose 138 mg/dL (65-115); Magnesium 1.7 mg/dL (1.7-2.3); Osmolality Calculated 288 mOsm/kg (285-295); Phosphorus 3.2 mg/dL (2.5-4.5); Potassium 3.5 mmol/L (3.5-5.1); Sodium 134 mmol/L (136-145); Total Bilirubin 0.3 mg/dL (0.15-1.2); Total Protein 5.8 g/dL (6.6-8.7)
[2023-11-23 06:10] LABS: Calcium 7.7 mg/dL (8.5-10.5); Parathyroid Hormone 103.5 pg/mL (15-65)
[2023-11-23 06:11] LABS: Thyroid Stimulating Hormone 2.73 uIU/mL (0.27-4.20)
[2023-11-23 06:30] LABS: Glucose Point of Care 132 mg/dL (70-110)
--- NOTE | 2023-11-23 07:04 | PM.PN ---
Subjective Subjective: feels better. glucose improved. dec cough and cp. he wants to go home. no n/v/f/a/d. Medications: Reviewed: Yes Medication Review Details: Current Medications Acetaminophen (Acetaminophen 500 Mg Tablet) 1,000 mg PO Q6H PRN PRN Reason: MILD PAIN OR INCREASE TEMP Amlodipine Besylate (Amlodipine 5 Mg Tablet) 5 mg PO DAILY [facility] Last Admin: 11/22/23 09:42 Dose: 5 mg Aspirin (Aspirin 81 Mg Ec Tablet) 81 mg PO DAILY [facility] Last Admin: 11/22/23 09:42 Dose: 81 mg Clonazepam (Clonazepam 1 Mg Tablet) 1 mg PO DAILY [facility] Last Admin: 11/22/23 09:42 Dose: 1 mg Duloxetine HCl (Duloxetine 60 Mg Capsule) 60 mg PO DAILY [facility] Last Admin: 11/22/23 09:43 Dose: 60 mg Sodium Chloride (Sodium Chloride 0.9%) 1,000 mls @ 0 mls/hr IV .Q0M PRN PRN Reason: hypotension or symptomatic Albumin Human (Albumin) 12.5 gm in 50 mls @ 60 mls/hr IV PRN PRN PRN Reason: Hypotension and/or symptomatic Azithromycin 250 mg/ Sodium (Chloride) 250 mls @ 250 mls/hr IV Q24H [facility]; Protocol Last Infusion: 11/22/23 23:47 Dose: Infused Dextrose (D5w) 500 mls @ 0 mls/hr IV ONCE PRN; Protocol PRN Reason: Adult Acute Hypoglycemia Prot Dextrose (D10w) 125 mls @ 750 mls/hr IV PRN PRN; Protocol PRN Reason: Adult Acute Hypoglycemia Nursing Protocol Dextrose (D10w) 250 mls @ 1,000 mls/hr IV PRN PRN; Protocol PRN Reason: Adult Acute Hypoglycemia Nursing Protocol Piperacillin Sod/Tazobactam (Sod 3.375 gm/ Sodium Chloride) 50 mls @ 12.5 mls/hr IV Q8H [facility]; Protocol Last Infusion: 11/23/23 06:16 Dose: 12.5 mls/hr Dextrose (D5w) 500 mls @ 0 mls/hr IV ONCE PRN; Protocol PRN Reason: Adult Acute Hypoglycemia Prot Dextrose (D10w) 125 mls @ 750 mls/hr IV PRN PRN; Protocol PRN Reason: Adult Acute Hypoglycemia Nursing Protocol Dextrose (D10w) 250 mls @ 1,000 mls/hr IV PRN PRN; Protocol PRN Reason: Adult Acute Hypoglycemia Nursing Protocol Insulin Glargine (Insulin Glargine 100 Units/1 Ml) 20 unit SUBCUT QAM [facility] Last Admin: 11/23/23 05:24 Dose: Not Given Insulin Glargine (Insulin Glargine 100 Units/1 Ml) 40 unit SUBCUT BEDTIME [facility] Last Admin: 11/22/23 22:19 Dose: Not Given Insulin Human Lispro (Insulin Lispro 100 Unit/1 Ml) 0 unit SUBCUT WM&BEDTIME [facility]; Protocol Ondansetron HCl (Ondansetron 2 Mg/Ml Sdv 2 Ml) 4 mg IVP Q4H PRN PRN Reason: NAUSEA AND VOMITING Pantoprazole Sodium (Pantoprazole Dr 40 Mg Tablet) 40 mg PO BID [facility] Last Admin: 11/22/23 18:12 Dose: 40 mg Vitals/I&O/Wt Last Vital Signs Temp 98.5 F 11/23/23 04:00 Pulse 88 11/23/23 04:00 Resp 18 11/23/23 04:00 BP 159/84 11/23/23 04:00 Pulse Ox 93 11/23/23 04:00 O2 Del Method Room Air 11/23/23 04:00 O2 Flow Rate 2 11/22/23 20:00 11/22/23 11/23/23 11/23/23 22:59 06:59 14:59 Intake Total 290 / 890 250 / 1140 Balance 290 / 890 250 / 1140 Weight last 48 hrs Weight 69.003 kg Weight 69.49 kg Weight 69.7 kg Physical Exam Narrative: comfortable , nc 02 VS noted heent- nc/at, eomi neck supple lungs clear heart regular abd soft, +BS ext no edema access rt ij PErmacath neuro- a,a, o x 2moves all extremities. seen and examined w/ RN- telehealth visit Data 11/23/23 04:43 11/23/23 04:43 A&P Assessment and plan (1) ESRD (end stage renal disease) on dialysis: 78 yr old man 1. ESRD - HD MWF. repeat hd 3 hrs, 3k, remove 2l 2. PNA- renal dose abx 3. anemia - ferritin 2771- no need for iron, epo as needed 4. DM- sugars were low yesterday. meds adjusted by Hospitalist 5. HTN - monitor w/ dialysis and amlodipine seen and examined w/ RN - telehealth visit consent for telehealth obtained from pt Plan see above Attestations Medical Necessity Statement*: pna, esrd Time Spent in Patient Care: 16 - 35 minutes Coding Level of Care Code Acute Code for Chg Fwd Diagnoses ESRD (end stage renal disease) on dialysis N18.6; Z99.2
--- NOTE | 2023-11-23 07:58 | PC.HD ---
Heparin 1000 units loading dose administered at 0735 via venous port of HD catheter per sales designer's orders.
[2023-11-23] MEDS: duloxetine 60 mg Capsule PO (09:48)
[2023-11-23] MEDS: CLONazepam 1 mg Tablet PO (09:48)
[2023-11-23] MEDS: pantoprazole DR 40 mg Tablet PO ×2 (09:48→18:12)
[2023-11-23] MEDS: aspirin 81 mg EC Tablet PO (09:48)
[2023-11-23] MEDS: amlodipine 5 mg Tablet PO (09:48)
[2023-11-23 11:48] LABS: Glucose Point of Care 142 mg/dL (70-110)
--- NOTE | 2023-11-23 12:04 | PC.SOCIAL ---
IMM Update Pg. 2 of IMM updated and reviewed with patient who verbalized understanding. Copy provided.
[2023-11-23] MEDS: insulin lispro 100 unit/1 mL SUBCUT ×3 (12:15→21:42)
--- NOTE | 2023-11-23 12:20 | XRR_ITS ---
PROCEDURE INFORMATION: Exam: XR Chest Exam date and time: 11/23/2023 12:38 PM Age: 78 years old Clinical indication: Condition or disease; Other: Pneumonia; Additional info: Pna TECHNIQUE: Imaging protocol: Radiologic exam of the chest. Views: 1 view. COMPARISON: CR (CHEST, ) 11/22/2023 3:20 PM FINDINGS: Tubes, catheters and devices: Unchanged dialysis catheter tunneled into the right internal jugular vein, and terminating in the upper right atrium. No complication. Lungs: Bilateral pneumonia is not obviously changed since yesterday. Otherwise, unremarkable. Pleural spaces: Unremarkable. No pleural effusion. No pneumothorax. Heart/Mediastinum: Unremarkable. No cardiomegaly. Bones/joints: Unchanged mild scoliosis with mild and moderate multilevel spondylosis. XR/XR chest 1V portable [id number] IMPRESSION: 1. Unchanged bilateral pneumonia. 2. Additional details as above.
[2023-11-23] MEDS: atorvastatin 40 mg Tablet PO (13:11)
--- NOTE | 2023-11-23 16:45 | P.PN_ITS ---
Subjective 2 Subjective: Hospital course, labs appreciated. Seen with daughter at bedside. Patient comfortable. Underwent dialysis earlier today morning. Denies any nausea vomiting, headache, chest pain. Vitals/I&O/Wt Last Vital Signs Temp 97.6 F 11/23/23 15:38 Pulse 84 11/23/23 15:38 Resp 16 11/23/23 15:38 BP 157/83 11/23/23 15:38 Pulse Ox 96 11/23/23 15:38 O2 Del Method Nasal Cannula 11/23/23 15:38 O2 Flow Rate 1 11/23/23 15:38 11/23/23 11/23/23 11/23/23 06:59 14:59 22:59 Intake Total 250 / 1140 590 / 590 Output Total 2300 / 2300 Balance 250 / 1140 -1710 / -1710 Weight last 48 hrs Weight 68.1 kg Weight 69.003 kg Weight 69.49 kg Physical Exam 2 Narrative: General: Alert and oriented x 3. In no acute distress. Mouth: No erythema or tonsilar enlargement. No masses noted. Neck: No thyromegaly. No lymphadenopathy. Heart: Regular rate and rhythm. No murmurs. Lungs: Good air entry bilaterally with mild crackles and wheezes at the bilateral bases without significant rhonchi. Abdomen: Soft, non-tender. No hepatosplenomegaly. Extremities: Trace pitting edema. Data 11/23/23 04:43 11/23/23 04:43 A&P Assessment and plan (1) Pneumonia: Left lower lobe pneumonia. Check sputum culture. Continue with IV Zosyn and azithromycin for now. Will plan to finish a 3-day course of azithromycin. Check MRSA swab. Plan to continue to finish a 5-day course. Patient currently on nasal cannula. Repeat chest x-ray. The patient has pneumonia in the left lung base and continues to have an elevated white blood cell count. It is mildly improved, however not significantly. Repeat chest x-ray shows signs of worsening pneumonia. I will go ahead and switch antibiotics to Zosyn from Rocephin to give a broader coverage. (2) Anemia: Post 2 unit of of blood transfusion during hospitalization. Hemoglobin stable. Appreciate iron panel, vitamin B12 levels. Continue to monitor. (3) ESRD (end stage renal disease) on dialysis: Continue with treatment per nephrology. (4) Diabetes: With recurrent episode of hypoglycemia. A1c of 10.7. Takes Lantus 40 units every morning, 60 units every afternoon. With episodes of severe hypoglycemia down to 30s. Patient has also received any of long-acting insulin within the last 24 hours. Hold off on Lantus for now. Continue with sliding scale. Will continue with sliding scale for now and monitor blood sugars and insulin requirement for next 34 hours. Most likely will discharge patient on Humalog with sliding scale for next couple of weeks with advised to maintain a blood sugar diary and follow-up with PCP as an outpatient for further changes in insulin. Hypoglycemia most likely in setting of weight loss along with CKD. Qualifiers: Diabetes mellitus type: type 2 Diabetes mellitus retirement insulin use: with retirement use Diabetes mellitus complication status: with hyperglycemia Qualified Code(s): E11.65 - Type 2 diabetes mellitus with hyperglycemia; Z79.4 - long-term (current) use of insulin (5) Hypoglycemia: (6) Weight loss: (7) Microscopic polyangiitis: Plan Hypertension: Goal blood pressure less than 140/90 mmHg. Blood pressure is mildly elevated. Increase amlodipine to home dose. Will plan to add losartan versus hydralazine as per goal blood pressures. Full code Renal diabetic dialysis diet Protonix for PUD prophylaxis SCDs for DVT prophylaxis, not on medical prophylaxis given anemia requiring blood transfusion on admission. Attestations 2 Medical Necessity Statement*: Requires further hospitalization for management of recurrent hypoglycemia in a patient with type 2 diabetes mellitus, ESRD on hemodialysis, recent diagnosis of microcytic polyangiitis, bilateral pneumonia Diagnoses Pneumonia J18.9 Anemia D64.9 ESRD (end stage renal disease) on dialysis N18.6; Z99.2 Type 2 diabetes mellitus with hyperglycemia, with long-term current use of insulin E11.65; Z79.4 Diabetes mellitus type: type 2 Diabetes mellitus millwright helper insulin use: with millwright helper use Diabetes mellitus complication status: with hyperglycemia Hypoglycemia E16.2 Weight loss R63.4 Microscopic polyangiitis M31.7
[2023-11-23 17:21] LABS: Glucose Point of Care 188 mg/dL (70-110)
[2023-11-23 21:41] LABS: Glucose Point of Care 183 mg/dL (70-110)
[2023-11-24 00:11] LABS: Glucose Point of Care 93 mg/dL (70-110)
[2023-11-24 00:23] VITALS: BP 135/69; PULSE 91; RESP 16; TEMP 37; O2SAT 96
[2023-11-24 01:57] LABS: Glucose Point of Care 92 mg/dL (70-110)
[2023-11-24 04:56] VITALS: BP 151/75; PULSE 90; RESP 16; TEMP 37; O2SAT 91
[2023-11-24 04:56] LABS: Basophils # 0.1 10^3/uL (0.0-0.1); Basophils % 0.6 %; Eosinophils # 0.1 10^3/uL (0.0-0.8); Eosinophils % 0.7 %; Hematocrit 29.6 % (37-53); Lymphocytes # 0.5 10^3/uL (0.8-4.8); Lymphocytes % 4.9 %; Mean Corpuscular HGB Conc 33.1 g/dL (30-55); Mean Corpuscular Hemoglobin 29.2 pg (27-33); Mean Corpuscular Volume 88.1 fl (82-101); Mean Platelet Volume 8.9 fL (7.4-10.4); Monocytes # 0.9 10^3/uL (0.2-0.9); Neutrophils # 9.29 10^3/uL (1.8-7.7); Neutrophils % 84.2 %; Nucleated Red Blood Cells % 0 %; Platelet Count 172 10^3/cmm (157-399); Red Blood Count 3.36 10^6/uL (3.85-5.65); Red Cell Distribution Width 16.8 % (12.1-15.1); White Blood Count 11.04 10^3/uL (3.29-11.43)
[2023-11-24 05:06] LABS: Alanine Aminotransferase 15 U/L (0-41); Albumin Level 2.6 g/dL (3.5-5.2); Alkaline Phosphatase 45 U/L (40-130); Anion Gap 13.7 (5-19); Aspartate Amino Transferase 15 U/L (0-40); Blood Urea Nitrogen 30 mg/dL (8-23); Calcium 7.8 mg/dL (8.5-10.5); Carbon Dioxide 28 mmol/L (22-29); Chloride 98 mmol/L (98-107); Chol HDL Ratio 2.82 mg/dL (1.0-5.00); Cholesterol 107 mg/dL (0-200); Creatinine Clr Calc Pharmacy 13.5377; Globulin 3.2 g/dL (1.3-4.6); Glucose 99 mg/dL (65-115); HDL Cholesterol 38 mg/dL (60-100); LDL Cholesterol Calculated 55 mg/dL (50-129); Magnesium 1.8 mg/dL (1.7-2.3); Osmolality Calculated 288 mOsm/kg (285-295); Phosphorus 3.8 mg/dL (2.5-4.5); Potassium 3.7 mmol/L (3.5-5.1); Sodium 136 mmol/L (136-145); Total Bilirubin 0.5 mg/dL (0.15-1.2); Total Protein 5.8 g/dL (6.6-8.7); Triglycerides 71 mg/dL (0-150); VLDL Cholestrol Calculation 14 mg/dL (0-30)
[2023-11-24 05:24] LABS: Folate Level 12.2 ng/mL (4.5-32.2)
[2023-11-24] MEDS: piperacillin-tazobactam 3.375 GM in sodium chloride 0.9% (plus) 50 ML IV (05:45)
[2023-11-24 06:38] LABS: Glucose Point of Care 113 mg/dL (70-110)
[2023-11-24 07:34] VITALS: BP 159/82; PULSE 86; RESP 17; TEMP 36.8; O2SAT 94
--- NOTE | 2023-11-24 07:57 | PM.PN ---
Subjective Subjective: feels better. no n/v/f/c/h/d/cp/chery/sob Medications: Reviewed: Yes Medication Review Details: Current Medications Acetaminophen (Acetaminophen 500 Mg Tablet) 1,000 mg PO Q6H PRN PRN Reason: MILD PAIN OR INCREASE TEMP Amlodipine Besylate (Amlodipine 5 Mg Tablet) 10 mg PO DAILY [facility] Aspirin (Aspirin 81 Mg Ec Tablet) 81 mg PO DAILY [facility] Last Admin: 11/23/23 09:48 Dose: 81 mg Atorvastatin Calcium (Atorvastatin 40 Mg Tablet) 40 mg PO DAILY [facility] Last Admin: 11/23/23 13:11 Dose: 40 mg Clonazepam (Clonazepam 1 Mg Tablet) 1 mg PO DAILY [facility] Last Admin: 11/23/23 09:48 Dose: 1 mg Duloxetine HCl (Duloxetine 60 Mg Capsule) 60 mg PO DAILY [facility] Last Admin: 11/23/23 09:48 Dose: 60 mg Folic Acid (Folic Acid 1 Mg Tablet) 1 mg PO DAILY [facility] Sodium Chloride (Sodium Chloride 0.9%) 1,000 mls @ 0 mls/hr IV .Q0M PRN PRN Reason: hypotension or symptomatic Albumin Human (Albumin) 12.5 gm in 50 mls @ 60 mls/hr IV PRN PRN PRN Reason: Hypotension and/or symptomatic Dextrose (D5w) 500 mls @ 0 mls/hr IV ONCE PRN; Protocol PRN Reason: Adult Acute Hypoglycemia Prot Dextrose (D10w) 125 mls @ 750 mls/hr IV PRN PRN; Protocol PRN Reason: Adult Acute Hypoglycemia Nursing Protocol Dextrose (D10w) 250 mls @ 1,000 mls/hr IV PRN PRN; Protocol PRN Reason: Adult Acute Hypoglycemia Nursing Protocol Piperacillin Sod/Tazobactam (Sod 3.375 gm/ Sodium Chloride) 50 mls @ 12.5 mls/hr IV Q8H [facility]; Protocol Last Admin: 11/24/23 05:45 Dose: 12.5 mls/hr Insulin Human Lispro (Insulin Lispro 100 Unit/1 Ml) 0 unit SUBCUT WM&BEDTIME [facility]; Protocol Last Admin: 11/24/23 07:44 Dose: Not Given Ondansetron HCl (Ondansetron 2 Mg/Ml Sdv 2 Ml) 4 mg IVP Q4H PRN PRN Reason: NAUSEA AND VOMITING Pantoprazole Sodium (Pantoprazole Dr 40 Mg Tablet) 40 mg PO BID [facility] Last Admin: 11/23/23 18:12 Dose: 40 mg Vitals/I&O/Wt Last Vital Signs Temp 98.3 F 11/24/23 07:34 Pulse 86 11/24/23 07:34 Resp 17 11/24/23 07:34 BP 159/82 11/24/23 07:34 Pulse Ox 94 11/24/23 07:34 O2 Del Method Room Air 11/24/23 07:34 O2 Flow Rate 1.5 11/23/23 20:00 11/23/23 11/24/23 11/24/23 22:59 06:59 14:59 Intake Total 290 / 880 50 / 930 Output Total 200 / 2500 Balance 290 / -1420 -150 / -1570 Weight last 48 hrs Weight 67.358 kg Weight 68.1 kg Weight 69.003 kg Physical Exam Narrative: comfortable , nc 02 VS noted heent- nc/at, eomi neck supple lungs clear heart regular abd soft, +BS ext no edema access rt ij PErmacath neuro- a,a, o x 2moves all extremities. seen and examined w/ RN- telehealth visit Data 11/24/23 03:37 11/24/23 03:37 A&P Assessment and plan (1) ESRD (end stage renal disease) on dialysis: 78 yr old man 1. ESRD - HD MWF. repeat hd 3 hrs, 3k, remove 2l 2. PNA- renal dose abx 3. anemia - ferritin 2771- no need for iron, epo as needed 4. DM- sugars improving. meds adjusted by Hospitalist 5. HTN - monitor w/ dialysis and amlodipine seen and examined w/ RN - telehealth visit consent for telehealth obtained from pt Plan see above Attestations Medical Necessity Statement*: per hospitalist- pneumonia, esrd, Time Spent in Patient Care: 16 - 35 minutes Coding Level of Care Code Acute Code for Chg Fwd Diagnoses ESRD (end stage renal disease) on dialysis N18.6; Z99.2
[2023-11-24] MEDS: amlodipine 5 mg Tablet 10 MG PO (08:35)
[2023-11-24] MEDS: aspirin 81 mg EC Tablet PO (08:35)
[2023-11-24] MEDS: atorvastatin 40 mg Tablet PO (08:35)
[2023-11-24] MEDS: folic acid 1 mg Tablet PO (08:35)
[2023-11-24] MEDS: duloxetine 60 mg Capsule PO (08:35)
[2023-11-24] MEDS: pantoprazole DR 40 mg Tablet PO (08:35)
[2023-11-24 10:46] LABS: Glucose Point of Care 253 mg/dL (70-110)
--- NOTE | 2023-11-24 10:53 | P.DS_ITS ---
Discharge Providers Date of Admission: 11/20/23 16:18 Date of Discharge: November 24, 2023 Attending Provider at Admission: Sumit Lane MD Attending Provider at Discharge: Clarence Black MD Consults: Telemetry nephrology Primary Care Provider: Bi Leon MD Diagnoses at Discharge Discharge Diagnosis (1) ESRD (end stage renal disease) on dialysis: Status: Acute Reason for Visit Reason for Visit: hypoglycemic Brief History: History as per HPI: Armin Jameson is a 78 year old male comes into the ER today after having a pretty severe hypoglycemic episode down in the 30s. states that this is unusual for him. He has been eating normally. Blood sugars have been very erratic though. Been feeling okay. Little bit of cough but no shortness of breath no fevers or sputum. No chest pain. No significant medication changes recently. He is on dialysis and is due for dialysis today. No recent infections that he is aware of. He also has pretty significant anemia when he came in here today. According to the family he has been having to receive blood off and on over the past few months. The cause of this was due to his renal failure. No blood in his stools or blood in his urine that they have noticed. 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 He apparently had 3 rounds of chemotherapy that did not seem to do any improvement. The last one was 3 weeks ago. He has not had any follow-up since then. Hospital Course Hospital Course He was admitted to the hospital further evaluation and management of refractory hypoglycemia in setting of type 2 diabetes mellitus on insulin along with respiratory failure admission in setting of bilateral pneumonia. He was started on broad-spectrum IV antibiotics. His cultures during hospitalization remain negative and he was back to his baseline respiratory and oxygen status. During hospitalization multiple adjustments to his home dose of insulin were done but he continued to have episodes of hypoglycemia. Eventually his long- acting insulin/Levemir was discontinued and he was only continued on short acting/Humalog insulin. His blood sugars have remained stable on Humalog. During hospitalization he continued to have dialysis as per home schedule. His hospitalization was otherwise unremarkable. He has been discharged in hemodynamically stable condition with advised to hold off on Lantus for now and only take Humalog insulin premeals as per sliding scale which has been provided to him. His target fasting blood sugar is between 100-1 20 and prelunch and dinner blood sugars are around 140. Discharge plan discussed in detail with the patient and he verbalized understanding. He is to also take Augmentin and Levaquin which is the antibiotics for next 4 days to finish course for community-acquired pneumonia. He will follow-up with his primary care provider within next 2 weeks. Physical Exam Narrative: General: Alert and oriented x 3. In no acute distress. Mouth: No erythema or tonsilar enlargement. No masses noted. Neck: No thyromegaly. No lymphadenopathy. Heart: Regular rate and rhythm. No murmurs. Lungs: Good air entry bilaterally with mild crackles and wheezes at the bilater al bases without significant rhonchi. Abdomen: Soft, non-tender. No hepatosplenomegaly. Extremities: Trace pitting edema. Discharge Data Studies Completed and Pending Completed Studies During Hospitalization Category Date Time Status CT head wo con* [id number] Routine Cat Scan 11/21/23 01:[address] head wo con* [id number] Stat Cat Scan 11/20/23 13:02 Completed CXRP [XR chest 1V portable [id number]] Stat Exams 11/20/23 12:14 Completed XR chest 1V portable [id number] Routine Exams 11/22/23 10:55 Completed XR chest 1V portable [id number] Routine Exams 11/23/23 12:20 Completed Pending at discharge Category Date Time Status Blood Culture Stat Lab 11/20/23 14:07 Results Complete Blood Count w/Auto AM LABS Lab 11/25/23 04:00 Ordered Comprehensive Metabolic Panel AM LABS Lab 11/25/23 04:00 Ordered MRSA [Methicillin Resistant S.aureu] Routine Lab 11/23/23 02:00 Received Magnesium AM LABS Lab 11/25/23 04:00 Ordered Phosphorus AM LABS Lab 11/25/23 04:00 Ordered Sputum Culture and Gram Stain Stat Lab 11/23/23 12:20 Uncollected Urinalysis Stat Lab 11/20/23 12:14 Ordered Radiology Impressions Head CT 11/21/23 01:32 IMPRESSION: Negative for acute intracranial pathology. Chest X-Ray 11/23/23 12:20 IMPRESSION: 1. Unchanged bilateral pneumonia. 2. Additional details as above. Laboratory Results WBC 11.04 10^3/uL (3.29-11.43) 11/24/23 03:37 RBC 3.36 10^6/uL (3.85-5.65) L 11/24/23 03:37 Hgb 9.80 g/dL (11.27-16.99) L 11/24/23 03:37 Hct 29.6 % (37-53) L 11/24/23 03:37 MCV 88.1 fl (82-101) 11/24/23 03:37 MCH 29.2 pg (27-33) 11/24/23 03:37 MCHC 33.1 g/dL (30-55) 11/24/23 03:37 RDW 16.8 % (12.1-15.1) H 11/24/23 03:37 Plt Count 172 10^3/cmm (157-399) 11/24/23 03:37 MPV 8.9 fL (7.4-10.4) 11/24/23 03:37 Neut % (Auto) 84.2 % 11/24/23 03:37 Lymph % (Auto) 4.9 % 11/24/23 03:37 [place] % (Auto) 8.0 % 11/24/23 03:37 Eos % (Auto) 0.7 % 11/24/23 03:37 Baso % (Auto) 0.6 % 11/24/23 03:37 Neut # (Auto) 9.29 10^3/uL (1.8-7.7) H 11/24/23 03:37 Lymph # (Auto) 0.5 10^3/uL (0.8-4.8) L 11/24/23 03:37 [place] # (Auto) 0.9 10^3/uL (0.2-0.9) 11/24/23 03:37 Eos # (Auto) 0.1 10^3/uL (0.0-0.8) 11/24/23 03:37 Baso # (Auto) 0.1 10^3/uL (0.0-0.1) 11/24/23 03:37 Nucleated RBC % (auto) 0 % 11/24/23 03:37 Nucleated RBCs # 0.0 /100WBC 11/24/23 03:37 Sodium 136 mmol/L (136-145) 11/24/23 03:37 Potassium 3.7 mmol/L (3.5-5.1) 11/24/23 03:37 Chloride 98 mmol/L (98-107) 11/24/23 03:37 Carbon Dioxide 28 mmol/L (22-29) 11/24/23 03:37 Anion Gap 13.7 (5-19) 11/24/23 03:37 BUN 30 mg/dL (8-23) H 11/24/23 03:37 Creatinine 4.6 mg/dL (0.7-1.2) H 11/24/23 03:37 GFR Calculation Not Reportable 11/24/23 03:37 Glucose 99 mg/dL (65-115) 11/24/23 03:37 POC Glucose 253 mg/dL (70-110) H 11/24/23 10:40 Calculated Osmolality 288 mOsm/kg (285-295) 11/24/23 03:37 Calcium 7.8 mg/dL (8.5-10.5) L 11/24/23 03:37 Phosphorus 3.8 mg/dL (2.5-4.5) 11/24/23 03:37 Magnesium 1.8 mg/dL (1.7-2.3) 11/24/23 03:37 Iron 95 ug/dL (59-158) 11/21/23 16:09 TIBC 122 mcg/dl 11/21/23 16:09 % Saturation 77.8 % (20-50) H 11/21/23 16:09 Unsat Iron Binding 27 ug/dL (112-347) L 11/21/23 16:09 Ferritin 2771 ng/mL (30-400) H 11/21/23 16:09 Total Bilirubin 0.5 mg/dL (0.15-1.2) 11/24/23 03:37 AST 15 U/L (0-40) 11/24/23 03:37 ALT 15 U/L (0-41) 11/24/23 03:37 Alkaline Phosphatase 45 U/L (40-130) 11/24/23 03:37 C-React Prot High Sens 23.470 mg/dL (0.0-0.3) H 11/22/23 05:41 Total Protein 5.8 g/dL (6.6-8.7) L 11/24/23 03:37 Albumin 2.6 g/dL (3.5-5.2) L 11/24/23 03:37 Globulin 3.2 g/dL (1.3-4.6) 11/24/23 03:37 Triglycerides 71 mg/dL (0-150) 11/24/23 03:37 Cholesterol 107 mg/dL (0-200) 11/24/23 03:37 LDL Cholesterol, Calc 55 mg/dL (50-129) 11/24/23 03:37 Total VLDL Cholesterol 14 mg/dL (0-30) 11/24/23 03:37 HDL Cholesterol 38 mg/dL (60-100) L 11/24/23 03:37 Cholesterol/HDL Ratio 2.82 mg/dL (1.0-5.00) 11/24/23 03:37 Lipase 36 U/L (13-60) 11/20/23 11:42 Folate 12.2 ng/mL (4.5-32.2) 11/24/23 03:37 TSH 2.73 uIU/mL (0.27-4.20) 11/23/23 04:43 PTH Intact 103.5 pg/mL (15-65) H 11/23/23 04:43 Calcium (PTH Intact) 7.7 mg/dL (8.5-10.5) L 11/23/23 04:43 Hep Bs Antigen Non-reactive (Nonreactive) 11/20/23 16:19 Hep Bs Antibody < 3.5 (11.5-1000) L 11/20/23 16:19 Blood Type AB Negative 11/21/23 08:16 Rho(D) Type Rh negative 11/21/23 08:16 Antibody Screen Negative 11/21/23 08:16 Crossmatch See Detail 11/21/23 08:16 Vitals Last Vital Signs Temp 98.3 F 11/24/23 07:34 Pulse 86 11/24/23 07:34 Resp 17 11/24/23 07:34 BP 159/82 11/24/23 07:34 Pulse Ox 94 11/24/23 07:34 O2 Del Method Room Air 11/24/23 07:34 O2 Flow Rate 1.5 11/23/23 20:00 Discharge Plan Discharge Patient Disposition: Home Health Service Condition: Stable Prescriptions: New Humalog KwikPen Insulin 100 unit/mL insulin pen 3 unit SUBCUT TID Qty: 15 0RF amoxicillin-pot clavulanate 875-125 mg tablet 1 tab PO BID Qty: 8 0RF levofloxacin 750 mg tablet 750 mg PO DAILY 5 Days Qty: 5 0RF Continued clonazepam 1 mg tablet 1 mg PO DAILY Qty: 30 5RF Rx Instructions: one at bedtime primidone 50 mg tablet 50 mg PO DAILY pantoprazole 40 mg tablet,delayed release (DR/EC) 40 mg PO BID Qty: 60 6RF duloxetine 60 mg capsule,delayed release(DR/EC) 60 mg PO DAILY Qty: 90 3RF (DME) pen needle, diabetic [Comfort EZ Pen Morrison] 31 gauge x 5/16 needle See Rx Instructions .Route Qty: 100 3RF Rx Instructions: As directed (DME) Blood Glucose Test Strip See Rx Instructions .ROUTE .MEDSUPPLY Qty: 100 11RF Rx Instructions: to test 3 x day (DME) blood-glucose meter Misc See Rx Instructions .Route Qty: 1 0RF Rx Instructions: CHECK BLOOD SUGAR THREE TIMES DAILY (DME) lancets [TRUEplus Lancets] 30 gauge misc See Rx Instructions .ROUTE .COMPLEX Qty: 100 5RF Dose Instruction: USE THREE TIMES DAILY as directed Rx Instructions: USE THREE TIMES DAILY as directed atorvastatin 40 mg tablet 40 mg PO DAILY ondansetron HCl 8 mg tablet 8 mg PO Q6H PRN (Reason: Nausea) aspirin 81 mg Tablet,Delayed Release (Dr/Ec) 81 mg PO DAILY amlodipine 10 mg tablet 10 mg PO DAILY folic acid 1 mg tablet 1 mg PO DAILY Discontinued Levemir FlexTouch U100 Insulin 100 unit/mL (3 mL) insulin pen See Rx Instructions .ROUTE .COMPLEX Qty: 245 3RF Dose Instruction: INJECT 10 UNITS SUBCUTANEOUSLY IN THE MORNING AND 70 UNITS IN THE EVENING. Rx Instructions: INJECT 30 UNITS SUBCUTANEOUSLY IN THE MORNING AND 60 UNITS IN THE EVENING. insulin syringe-needle U-100 1 mL 31 gauge x 5/16 syringe See Rx Instructions .ROUTE .COMPLEX Qty: 100 3RF Dose Instruction: USE DIRECTED TO inject insulin Rx Instructions: USE DIRECTED TO inject insulin Discharge Orders: Discharge Order (Routine); Ordered 11/24/23 Ordered By: Clarence Black Referrals: [facility] [Other] Bi Leon MD [Primary Care Provider] - 12/10/23 (Keep your previous scheduled appointment) Patient Instructions: Amoxicillin/Clavulanate Potassium (By mouth), Levofloxacin (By mouth) (Levaquin, Levaquin Leva-cr), Insulin Lispro (By injection), Dialysis Diet (DC), Hypoglycemia in a Person with Diabetes (GEN), Hemodialysis (DC), What to Do if Your Blood Sugar is Low (GEN), Opioid Safety Activity Restrictions/Additional Instructions: Do not take Lantus anymore. Instead take short acting/Humalog insulin. Sliding scale is as below. Check your blood sugars before each meal and take insulin as below. If 141-180 mg/dl, then 2 units/SQ; If 181-220 mg/dl, then 4 units/SQ; If 221-260 mg/dl, then 6 units/SQ; If 261-300 mg/dl, then 8 units/SQ; If 301-350 mg/dl, then 10 units/SQ; If 351-400 mg/dl, then 12 units/SQ; If greater than 400 mg/dl, then 14 units/SQ Maintain a blood sugar diary for next 2 weeks and follow-up to primary care provider for further adjustment of insulin going forward. Augmentin Levaquin is the antibiotic for supposed to take for next 4 days. Discharge Attestations Time Spent in Discharge Care*: greater than 30 min Specific Discharge Activities: educating patient, educating and/or supporting family/caregiver, discussing with pcp/other providers, discussing with onsite case manager/social workers/dc planners, documenting/other paperwork and evaluating patient/reviewing data Quality Metrics Clinical Quality Measures [ No reported AMI, CVA or VTE this stay] Coding Level of Care Code 90776 Total time (in minutes) for Discharge: 60 Diagnoses ESRD (end stage renal disease) on dialysis N18.6; Z99.2
[2023-11-24 11:19] VITALS: BP 161/87; PULSE 87; RESP 17; TEMP 37.1; O2SAT 96
[2023-11-24] MEDS: insulin lispro 100 unit/1 mL SUBCUT (11:35)
[2023-11-24 12:11] VITALS: BP 161/87; PULSE 87; RESP 17; TEMP 37.1; O2SAT 96
[2023-11-25 12:38] LABS: Methicillin-Resist S.aureu PCR NOT DETECTED (NOT DETECTED)
== END 2023-11-24 12:07 | disposition home or self-care (01) | DRG 193 ==
LOC: ER 14:40 → MEDSURG 16:18
PROVIDERS: Family Medicine; Hospitalist; Internal Medicine; Internal Medicine Nephrology; Admitting Provider Family Medicine; Emergency Provider Emergency Medicine; PCP Internal Medicine; Visit Provider Student in an Organized Health Care Education/Training Program
DX: J18.9 Pneumonia, unspecified organism (principal); N18.6 End stage renal disease; I12.0 Hypertensive chronic kidney disease with stage 5 chronic kidney disease or end stage renal disease; M31.7 Microscopic polyangiitis; E11.649 Type 2 diabetes mellitus with hypoglycemia without coma; E11.22 Type 2 diabetes mellitus with diabetic chronic kidney disease; Z99.2 Dependence on renal dialysis; Z79.4 Long term (current) use of insulin; D63.1 Anemia in chronic kidney disease; E78.5 Hyperlipidemia, unspecified; G30.9 Alzheimer's disease, unspecified; F02.80 Dementia in other diseases classified elsewhere, unspecified severity, without behavioral disturbance, psychotic disturbance, mood disturbance, and anxiety; R63.4 Abnormal weight loss
CPT/HCPCS: 36415; 36416; 36430; 70450; 71045; 80048; 80053; 80061; 82310; 82728; 82746; 82962; 83540; 83550; 83690; 83735; 83970; 84100; 84443; 85014; 85018; 85025; 86141; 86706; 86850; 86900; 86920; 87040; 87340; 87641; 90935; 93005; 94664; 96365; 96367; 96372; 96375; 97116; 97161; 99285; J0456; J0696; J1815; J2543; J7050; P9040; Q3014

== ENCOUNTER 2023-12-04 08:42 | Inpatient (IN) | payer MEDICARE, OTHER, SELFPAY ==
[2023-12-04] VITALS (125 sets, daily range): BP systolic 92–217; BP diastolic 54–119; PULSE 75–118; RESP 2–26; TEMP 36.8–37.8; O2SAT 93–100; BMI 21.5
--- NOTE | 2023-12-04 08:46 | XR_ITS ---
WS: [id number] XR chest 1V portable [id number] REASON FOR EXAM: dyspnea/cough FINDINGS: Endotracheal tube, nasogastric tube, and right internal jugular vein dialysis catheter are in proper position. The heart and mediastinum are within normal limits. Previous reticular interstitial and groundglass opacities in both lungs have essentially resolved com pared to 11/22/2023. There is increased lucency over the left costophrenic angle. This appearance appears to be due to ove rlying artifact. XR/XR chest 1V portable [id number] IMPRESSION: Lung opacities have resolved. No new findings.
--- NOTE | 2023-12-04 08:46 | ECG_ITS ---
[facility] Test Date: 2023-12-04 Pat Name: Armin Jameson Department: Room: Gender: Male [employer]: : 1945 Requested By: Nolan Hall Order Number: [id number] Rose Mary MD: Remy Norton M.D. Measurements Intervals Ada Rate: 117 P: 0 MD: 0 QRS: 58 QRSD: 78 T: 66 QT: 328 QTc: 459 Interpretive Statements Sinus TACHYCARDIA with baseline artifact ABNORMAL RHYTHM ECG Compared to ECG 11/20/2023 11:44:34 Ectopic atrial rhythm no longer present Left ventricular hypertrophy no longer present Electronically Signed On 12-04-2023 13:02:55 CDT by Remy Norton M.D. [email or web address]
--- NOTE | 2023-12-04 08:47 | CT_ITS ---
WS: [id number] CT HEAD NONCONTRAST HISTORY: AMS TECHNIQUE: Contiguous axial imaging performed through the brain in 2.5 mm imaging. Bone and soft tiss ue windows. Sagittal and coronal reformats reviewed. All CT scans at [facility] use at least one of these dose optimization techniques: automated exposure control; mA and/or kV adjustment per pa tient size (includes targeted exams where dose is matched to clinical indication); or iterative recon struction. DLP: 1140.32 mGy.cm COMPARISON: 11/21/2023 Moderate cerebral atrophy and small vessel ischemic disease. No acute hemorrhage. No mass effect or midline shift. Ventricles: Normal size with no hydrocephalus. Paranasal sinuses: As visualized are clear. Mastoid air cells: Well pneumatized. Calvarium and scalp: Skull is intact with no soft tissue edema or swelling. Metallic artifact through the RIGHT skull base. CT/CT head wo con* [id number] IMPRESSION: 1. No acute intracranial hemorrhage or edema. 2. Moderate atrophy and small vessel ischemic disease as recently described. N o interval change.
[2023-12-04] MEDS: dextrose 10% 250 ML 1000 ML IV (08:48)
[2023-12-04] MEDS: calcium chloride 10% Syr 10 mL 1 GM IVP (08:55)
[2023-12-04] MEDS: etomidate 2 mg/mL INJ SDV 10 mL 20 MG IVP (08:58)
[2023-12-04] MEDS: LORazepam 2 mg/mL INJ 10 mL MDV IVP (08:59)
[2023-12-04] MEDS: vecuronium 10 mg SDV IVP (09:00)
[2023-12-04] MEDS: midazolam hcl 100 MG/100 ML BAG IV (09:01)
[2023-12-04] MEDS: fentaNYL 1,000 MCG/100 ML BAG 2.5 MCG IV (09:01)
--- NOTE | 2023-12-04 09:05 | W.ED.AMS ---
HPI - Altered Mental Status General: Chief Complaint: Altered Mental Status Stated Complaint: hypoglycemic, unresponsive Time Seen by Provider: 12/04/23 08:46 Source: patient Mode of arrival: EMS History of Present Illness: 78-year-old male history of diabetes and persistent hypoglycemia in the past as well as end-stage renal disease on dialysis with dementia. Patient presented via EMS with report of hypoglycemia they were called out with hypoglycemia reports that initially his blood glucose was 44 they gave D10 and his blood glucose raised to 50 gave given D50 and blood glucose went up to 200. His last known normal was last night. He has not been responding to any verbal or painful stimuli which continues to be the case after arrival here he has upgoing Babinski's bilaterally. On 3 L by nasal cannula he is satting 97% but having labored breathing with significant gurgling. No family is available there is no CODE STATUS on his chart from his previous hospitalization. He is scheduled for dialysis today. His most recent hospitalization included finding for pneumonia. 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 Cervical pain Peripheral neuropathy, idiopathic Atherosclerosis of arteries Mood disorder 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 Poor compliance with medication Depression Cognitive impairment Cerebral AV malformation Diabetes Mixed hyperlipidemia Surgical History History of cholecystectomy History of colon resection Family History Other Cancer Social History Smoking and tobacco/nicotine status: never used tobacco/nicotine Second hand smoke exposure: No Alcohol intake: never Substance/Drug Use: never Lives independently: Yes Household members: spouse Marital status: Current occupational status: retired Previous occupational history: [employer] Current gender identity: Male Special naldo needs: No Agree to transfusion: Yes Physical Exam HENMT: COMMON NORMALS: normocephalic, atraumatic and hearing grossly normal bilaterally HEAD & SCALP: normocephalic and atraumatic Resp: EFFORT & INSPECTION: Yes respiratory distress, Yes decreased respiratory effort, Yes labored and Yes grunting AUSCULTATION: rhonchi and diminished lung sounds Cardio: COMMON NORMALS: regular rhythm RATE: tachycardic RHYTHM: regular rhythm GI: COMMON NORMALS: Soft to palpation and No hepatosplenomegaly present AUSCULTATION: Yes normoactive bowel sounds PALPATION: Yes Soft to palpation, No Tenderness to palpation present (GI), No Guarding due to palpation present (GI) and Yes No hepatosplenomegaly present Extremity: COMMON NORMALS: normal to inspection, capillary refill normal, no clubbing, cyanosis or edema, no calf tenderness and no pedal edema OTHER: No sacral decubitus there is slight pinkish skin over the tip of the coccyx but no significant skin breakdown at this time. Neuro: JONATHAN COMA SCALE: document GCS findings Jonathan coma scale eye opening: None [place] coma scale verbal response: Sounds Jonathan coma scale motor response: Extension Jonathan coma scale total score: 5 Skin: COMMON NORMALS: no rashes or lesions noted GENERAL SKIN EXAM: no rashes or lesions noted Procedures Intubation sedative: Etomidate Mg Given: 20 paralytic: Vecuronium Mg Given: 10 Laryngoscope: Dave ET Tube Size: 8 ET Tube Uncuffed: No Tube Secured Depth (cm): 23 Tube Secured Location: teeth Tube Placement Confirmation: visualized tube passing through cords, equal breath sounds bilaterally, no breath sounds over epigastrium and confirmation by capnometry Patient Tolerated Procedure: well Intubation Complications: none Course Vital Signs: Vital signs: Vital Signs Pulse Rate 104 H 12/04/23 11:45 Respiratory Rate 14 12/04/23 11:45 Blood Pressure 118/69 12/04/23 11:45 Pulse Oximetry 100 12/04/23 11:45 Oxygen Delivery Me thod Mechanical Ventil ation 12/04/23 11:40 Fraction of Inspir ed Oxygen 40 12/04/23 11:13 MDM - Altered Mental Status Medical Decision Making Patient nonresponsive a quick review of his chart was done particularly the last discharge summary and H&P. There is no CODE STATUS no family available given his Glascow score of 5 and his inability to control his airway he was intubated. He does appear to potentially be seizing as has rhythmic movements bilaterally. Because of the report of his dialysis being due today as tachycardia he was given a gram of calcium chloride he is also given 2 of Ativan. RSI intubation with rocuronium and etomidate. Patient hypertensive with blood pressure got over 200 and he was given hydralazine. His lactate is slightly elevated he has large number of red blood cells in his urine but I believe that is from traumatic catheterization. CT head and abdomen are pending. Prophylactically started him on antibiotics and gave him a small fluid bolus did not give the full 3 and 30 mL/kg fluid bolus due to his blood pressure. I have discussed with family they are concerned that there is another reason for his intermittent hypoglycemia that is not related to insulin. Discussed with him that until he is completely off the insulin the first concern would be the insulin causing it or varying intake that does not require as much insulin as he is scheduled for. expresses that she does not believe that to be the case and is visibly upset. Patient been discharged home on regular Humalog. After discharge they followed up with the primary care doctor and Thursday evening a day and a half ago they restarted the Lantus he got a dose Thursday night and then a dose morning and evening (last night he was hypoglycemic this morning. Reviewed with her that given these circumstances and the history of the hypoglycemia with Lantus on the previous hospitalizations that the insulin is the most likely cause of the hypoglycemia. His blood glucose remains a stable at this time. CT shows question of inflammation around the pancreas but the lipase is normal. Lactate and white count are elevated I suspect this is from demargination and the lactate being elevated is from the seizure. Will cover with antibiotics till cultures come back did not give him the flu full fluid bolus because initially his blood pressure was elevated. We are also concerned about the possibility of a stroke and his last known well is approximately 12 hours ago. Patient was given 10 of hydralazine at this point until we get CT completed would prefer permissive hypertension. Patient did respond well to the hydralazine blood pressure very well-controlled now CT of the head was negative. Discussed with Dr. Solorio will admit orders written consult Dr. Esparza. We did have to titrate up on his sedation to allow for adequate sedation to get good's imaging results on the CT. He is also been given Keppra. No sign of further seizure. In discussion of the family for now they would like these to keep him on the ventilator but they do not wish any further resuscitative efforts if he is able to be weaned off the ventilator they would not want him reintubated. Patient does have hematuria suspect this is due to traumatic catheterization. There is no sign of infection and no significant abnormality on the CT the abdomen and pelvis. Medical Records I reviewed the patient's medical records. Lab Data I reviewed the patient's lab results. 12/04/23 09:11 12/04/23 09:11 Radiology Impressions Chest X-Ray 12/04/23 08:46 IMPRESSION: Lung opacities have resolved. No new findings. Head CT 12/04/23 08:47 IMPRESSION: 1. No acute intracranial hemorrhage or edema. 2. Moderate atrophy and small vessel ischemic disease as recently described. No interval change. Abdomen/Pelvis CT 12/04/23 10:16 IMPRESSION: 1. Central mesenteric edema with fluid surrounding the pancreas and the duodenum. Most likely acute pancreatitis. There is no focal collection such as pseudocyst. 2. Small amount of intraperitoneal fluid extending along the paracolic gutters. 3. Significant edema surrounding the stomach antrum and the proximal duodenum. No obstruction. This may all be secondary to pancreatitis or duodenitis. 4. Prior cholecystectomy. 5. Limited visualization of the pancreas without IV contrast. 6. No GI tract obstruction. 7. Mild cardiomegaly and pericardial effusion. 8. Nasogastric tube terminating in the stomach. 9. No free air. Laboratory Results WBC 19.71 10^3/uL (3.29-11.43) H 12/04/23 09:11 RBC 3.38 10^6/uL (3.85-5.65) L 12/04/23 09:11 Hgb 10.00 g/dL (11.27-16.99) L 12/04/23 09:11 Hct 30.0 % (37-53) L 12/04/23 09:11 MCV 88.8 fl (82-101) 12/04/23 09:11 MCH 29.6 pg (27-33) 12/04/23 09:11 MCHC 33.3 g/dL (30-55) 12/04/23 09:11 RDW 15.2 % (12.1-15.1) H 12/04/23 09:11 Plt Count 208 10^3/cmm (157-399) 12/04/23 09:11 MPV 9.0 fL (7.4-10.4) 12/04/23 09:11 Neut % (Auto) 93.3 % 12/04/23 09:11 Lymph % (Auto) 1.8 % 12/04/23 09:11 [place] % (Auto) 3.8 % 12/04/23 09:11 Eos % (Auto) 0.0 % 12/04/23 09:11 Baso % (Auto) 0.2 % 12/04/23 09:11 Neut # (Auto) 18.40 10^3/uL (1.8-7.7) H 12/04/23 09:11 Lymph # (Auto) 0.4 10^3/uL (0.8-4.8) L 12/04/23 09:11 [place] # (Auto) 0.7 10^3/uL (0.2-0.9) 12/04/23 09:11 Eos # (Auto) 0.0 10^3/uL (0.0-0.8) 12/04/23 09:11 Baso # (Auto) 0.0 10^3/uL (0.0-0.1) 12/04/23 09:11 Nucleated RBC % (auto) 0 % 12/04/23 09:11 Nucleated RBCs # 0.0 /100WBC 12/04/23 09:11 Specimen Type Arterial 12/04/23 10:59 Sample Site Brachial, right 12/04/23 10:59 ABG pH 7.50 (7.35-7.45) H 12/04/23 10:59 ABG pCO2 37.3 mmHg (35-45) 12/04/23 10:59 ABG pO2 187.0 mmHg (80.0-100.0) H 12/04/23 10:59 ABG PO2/FiO2 Ratio 0 12/04/23 10:59 ABG HCO3 28.7 mmol/L (22-26) H 12/04/23 10:59 ABG O2 Saturation 99.2 12/04/23 10:59 ABG Base Excess 5.1 mmol/L (-2.0-2.0) H 12/04/23 10:59 Sushil Test Pos 12/04/23 10:59 A-a O2 Gradient 6.3 mmHg (5-10) 12/04/23 10:59 Hematocrit 28.1 % (42-52) L 12/04/23 10:59 Hgb O2 Saturation 98.2 % (95-100) 12/04/23 10:59 Carboxyhemoglobin 0.4 %THgb (0.4-20.1) 12/04/23 10:59 Methemoglobin 0.6 % (0.4-1.5) 12/04/23 10:59 Total Hemoglobin 9.2 g/dL (14-18) L 12/04/23 10:59 Sodium 132.0 mmol/L (131-143) 12/04/23 10:59 Potassium 4.5 mmol/L (3.5-5.0) 12/04/23 10:59 Glucose 212.0 mg/dL (70-115) H 12/04/23 10:59 Ionized Calcium 1.2 mmol/L (1.1-1.4) 12/04/23 10:59 O2 Delivery Device Vent 12/04/23 10:59 FiO2 40.0 % 12/04/23 10:59 Tidal Volume 0.50 12/04/23 10:59 PEEP 5.0 cmH20 12/04/23 10:59 Linoleum Floor Installer ID [place] 12/04/23 10:59 Sodium 131 mmol/L (136-145) L 12/04/23 09:11 Potassium 4.5 mmol/L (3.5-5.1) 12/04/23 09:11 Chloride 88 mmol/L (98-107) L 12/04/23 09:11 Carbon Dioxide 27 mmol/L (22-29) 12/04/23 09:11 Anion Gap 20.5 (5-19) H 12/04/23 09:11 BUN 42 mg/dL (8-23) H 12/04/23 09:11 Creatinine 5.5 mg/dL (0.7-1.2) H 12/04/23 09:11 GFR Calculation Not Reportable 12/04/23 09:11 Glucose 252 mg/dL (65-115) H 12/04/23 09:11 POC Glucose 206 mg/dL (70-110) H 12/04/23 12:08 Calculated Osmolality 291 mOsm/kg (285-295) 12/04/23 09:11 Lactic Acid 2.7 mmol/L (0.5-2.2) H 12/04/23 09:11 Calcium 9.4 mg/dL (8.5-10.5) 12/04/23 09:11 Magnesium 1.7 mg/dL (1.7-2.3) 12/04/23 09:11 Total Bilirubin 0.3 mg/dL (0.15-1.2) 12/04/23 09:11 AST 20 U/L (0-40) 12/04/23 09:11 ALT 16 U/L (0-41) 12/04/23 09:11 Alkaline Phosphatase 54 U/L (40-130) 12/04/23 09:11 Creatine Kinase 41 U/L (39-308) 12/04/23 09:11 Troponin T Baseline 72 ng/L (0-15) H 12/04/23 09:11 Troponin T 120 Minute 77.37 ng/L (0-15) H 12/04/23 11:24 Delta Troponin T 5.37 ABS# (0-10) 12/04/23 11:24 NT-Pro-B Natriuret Pep 19992 pg/mL (0-450) H 12/04/23 09:11 Total Protein 6.6 g/dL (6.6-8.7) 12/04/23 09:11 Albumin 3.3 g/dL (3.5-5.2) L 12/04/23 09:11 Globulin 3.3 g/dL (1.3-4.6) 12/04/23 09:11 Lipase 29 U/L (13-60) 12/04/23 11:24 Urine Color Yellow (Yellow) 12/04/23 09:24 Urine Appearance Clear (CLEAR) 12/04/23 09:24 Urine pH 9 (5-7) H 12/04/23 09:24 Ur Specific [place] 1.015 (1.005-1.030) 12/04/23 09:24 Urine Protein 2+ (Negative) H 12/04/23 09:24 Urine Glucose (UA) 1+ (Normal) H 12/04/23 09:24 Urine Ketones Negative (Negative) 12/04/23 09:24 Urine Blood 3+ (Negative) H 12/04/23 09:24 Urine Nitrate Negative (Negative) 12/04/23 09:24 Urine Bilirubin Neg (Negative) 12/04/23 09:24 Urine Urobilinogen Norm mg/dL (Negative) 12/04/23 09:24 Ur Leukocyte Esterase Negative (Negative) 12/04/23 09:24 Urine RBC Too numerous to cnt /hpf (0-2) H 12/04/23 09:24 Urine WBC None /hpf (0-5) 12/04/23 09:24 Ur Squamous Epith Cells None /hpf (0-5) 12/04/23 09:24 Amorphous Sediment Not Reportable 12/04/23 09:24 Urine Bacteria Trace /hpf (NONE) 12/04/23 09:24 Serum Ketones Negative (Negative) 12/04/23 09:11 Adenovirus (PCR) Not detected (NOT DETECT) 12/04/23 09:58 C. pneumoniae DNA (PCR) Not detected (NOT DETECT) 12/04/23 09:58 Coronavirus 229E (PCR) Not detected (NOT DETECT) 12/04/23 09:58 Human Metapneumovir PCR Not detected (NOT DETECT) 12/04/23 09:58 Influenza A (H1) PCR Not detected (NOT DETECT) 12/04/23 09:58 Influ A (H1/09) PCR Not detected (NOT DETECT) 12/04/23 09:58 Influenza A (H3) PCR Not detected (NOT DETECT) 12/04/23 09:58 Influenza Type A (PCR) Not detected (NOT DETECT) 12/04/23 09:58 Influenza Type B (PCR) Not detected (NOT DETECT) 12/04/23 09:58 M. pneumoniae (PCR) Not detected (NOT DETECT) 12/04/23 09:58 Parainfluenza 1 (PCR) Not detected (NOT DETECT) 12/04/23 09:58 Parainfluenza 2 (PCR) Not detected (NOT DETECT) 12/04/23 09:58 Parainfluenza 3 (PCR) Not detected (NOT DETECT) 12/04/23 09:58 Parainfluenza 4 (PCR) Not detected (NOT DETECT) 12/04/23 09:58 RSV Type A (PCR) Not detected (NOT DETECT) 12/04/23 09:58 RSV Type B (PCR) Not detected (NOT DETECT) 12/04/23 09:58 Entero/Rhino (PCR) Not detected (NOT DETECT) 12/04/23 09:58 SARS-CoV-2 (PCR) Not detected (NOT DETECT) 12/04/23 09:58 All radiology interpretation(s) finalized by discharge Discharge Plan Discharge Patient Disposition: Admitted As Inpatient Clinical Impression: Hypoglycemia, ESRD on dialysis, Seizure, Hematuria Condition: Stable Prescriptions: No Action primidone 50 mg tablet 50 mg PO DAILY pantoprazole 40 mg tablet,delayed release (DR/EC) 40 mg PO BID Qty: 60 6RF duloxetine 60 mg capsule,delayed release(DR/EC) 60 mg PO DAILY Qty: 90 3RF (DME) pen needle, diabetic [Comfort EZ Pen [place]] 31 gauge x 5/16 needle See Rx Instructions .Route Qty: 100 3RF Rx Instructions: As directed (DME) Blood Glucose Test Strip See Rx Instructions .ROUTE .MEDSUPPLY Qty: 100 11RF Rx Instructions: to test 3 x day (DME) blood-glucose meter Misc See Rx Instructions .Route Qty: 1 0RF Rx Instructions: CHECK BLOOD SUGAR THREE TIMES DAILY (DME) lancets [TRUEplus Lancets] 30 gauge misc See Rx Instructions .ROUTE .COMPLEX Qty: 100 5RF Dose Instruction: USE THREE TIMES DAILY as directed Rx Instructions: USE THREE TIMES DAILY as directed atorvastatin 40 mg tablet 40 mg PO DAILY ondansetron HCl 8 mg tablet 8 mg PO Q6H PRN (Reason: Nausea) aspirin 81 mg Tablet,Delayed Release (Dr/Ec) 81 mg PO DAILY amlodipine 10 mg tablet 10 mg PO DAILY folic acid 1 mg tablet 1 mg PO DAILY clonazepam 1 mg tablet 1 mg PO BEDTIME sulfamethoxazole-trimethoprim 400-80 mg tablet 1 tab PO BID acyclovir 800 mg tablet 800 mg PO DAILY mycophenolate mofetil 500 mg tablet 1,000 mg PO BID tamsulosin 0.4 mg capsule 0.4 mg PO DAILY fluconazole 50 mg tablet 50 mg PO DAILY Levemir FlexPen 100 unit/mL (3 mL) insulin pen See Rx Instructions .ROUTE .COMPLEX Rx Instructions: INJECT 20 UNITS SUBCUTANEOUSLY EVERY MORNING AND 30 UNITS SUBCUTANEOUSLY EVERY EVENING Lantus Solostar U-100 Insulin 100 unit/mL (3 mL) insulin pen 20 unit SUBCUT BID Humalog KwikPen Insulin 100 unit/mL Insulin Pen 3 unit SUBCUT TID Referrals: Bi Leon MD [Primary Care Provider] - Patient Instructions: Altered Mental Status (ED), Opioid Safety, Pain Management Coding Level of Care Code ED Building Cleaner for Enrique Chi
[2023-12-04 09:14] LABS: ABG PCO2 42.5 mmHg (35-45); ABG PH Result 7.45 (7.35-7.45); Arterial Blood Gas Hematocrit 30.5 % (42-52); Base Excess ABG 4.9 mmol/L (-2.0-2.0); Blood Gas Allen Test Pos; Blood Gas Operator Identificat AMH; Blood Gas Sample Site Radial, right; Blood Gas Sample Type Arterial; Carboxyhemoglobin 0.5 %THgb (0.4-20.1); HCO3 ABG 29.4 mmol/L (22-26); HGB O2 Sat 98.6 % (95-100); Ionized Calcium Level - ABG 1.3 mmol/L (1.1-1.4); Methemoglobin 0.5 % (0.4-1.5); Oxygen Saturation ABG 99.6; Potassium Level - ABG 4.2 mmol/L (3.5-5.0)
[2023-12-04 09:15] LABS: Alveolar-Arterial Oxygen Gradi 22.1 mmHg (5-10); Oxygen Device AMBU; PO2 FiO2 Ratio Arterial Blood 0
[2023-12-04 09:37] LABS: Basophils % 0.2 %; Lymphocytes # 0.4 10^3/uL (0.8-4.8); Lymphocytes % 1.8 %; Mean Corpuscular HGB Conc 33.3 g/dL (30-55); Mean Corpuscular Hemoglobin 29.6 pg (27-33); Mean Corpuscular Volume 88.8 fl (82-101); Monocytes # 0.7 10^3/uL (0.2-0.9); Monocytes % 3.8 %; Neutrophils % 93.3 %; Nucleated Red Blood Cells % 0 %; Platelet Count 208 10^3/cmm (157-399); Red Blood Count 3.38 10^6/uL (3.85-5.65); Red Cell Distribution Width 15.2 % (12.1-15.1); White Blood Count 19.71 10^3/uL (3.29-11.43)
[2023-12-04 09:47] LABS: Ketone (Acetest) Serum Negative (Negative)
[2023-12-04 09:52] LABS: Add Urine Microscopic? YES; Bilirubin Urine Neg (Negative); Blood Urine 3+ (Negative); Glucose Urine UA 1+ (Normal); Ketones Urine Negative (Negative); Leukocyte Esterase Urine Negative (Negative); Nitrate Urine Negative (Negative); Protein Urine 2+ (Negative); Specific Gravity, Urine 1.015 (1.005-1.030); Urine Appearance Clear (CLEAR); Urine Color Yellow (Yellow); Urobilinogen Urine Norm (Negative); pH Urine 9 (5-7)
[2023-12-04 09:54] LABS: Add Urine Culture? Yes; Bacteria Urine TRACE /hpf; RBC Urine TOO NUMEROUS TO CNT /hpf (0-2)
[2023-12-04 09:55] LABS: Glucose Point of Care 261 mg/dL (70-110)
[2023-12-04] MEDS: levETIRAcetam 1,000 MG/100 ML PREMIX 400 MG IV (09:56)
[2023-12-04 09:58] LABS: Lactic Sepsis W/Reflex 2.7 mmol/L (0.5-2.2)
[2023-12-04 10:01] LABS: Troponin(5th) Baseline 72 ng/L (0-15)
[2023-12-04] MEDS: hyDRALAzine 20 mg/mL INJ 1 mL 10 MG IVP (10:03)
[2023-12-04 10:11] LABS: Alanine Aminotransferase 16 U/L (0-41); Albumin Level 3.3 g/dL (3.5-5.2); Alkaline Phosphatase 54 U/L (40-130); Aspartate Amino Transferase 20 U/L (0-40); Blood Urea Nitrogen 42 mg/dL (8-23); Calcium 9.4 mg/dL (8.5-10.5); Carbon Dioxide 27 mmol/L (22-29); Chloride 88 mmol/L (98-107); Creatine Phosphokinase 41 U/L (39-308); Creatinine Clr Calc Pharmacy 11.5601; Globulin 3.3 g/dL (1.3-4.6); Glucose 252 mg/dL (65-115); Lipase 44 U/L (13-60); Magnesium 1.7 mg/dL (1.7-2.3); Osmolality Calculated 291 mOsm/kg (285-295); Sodium 131 mmol/L (136-145); Total Bilirubin 0.3 mg/dL (0.15-1.2); Total Protein 6.6 g/dL (6.6-8.7)
--- NOTE | 2023-12-04 10:12 | ECG_ITS ---
[facility] Test Date: 2023-12-04 Pat Name: Armin Jameson Department: Room: Gender: Male Teaching Assistant: : 1945 Requested By: Nolan Hall Order Number: [id number] Rose Mary MD: Remy Norton M.D. Measurements Intervals [place] Rate: 106 P: 44 TN: 181 QRS: 63 QRSD: 80 T: 89 QT: 360 QTc: 480 Interpretive Statements SINUS TACHYCARDIA NONSPECIFIC T-WAVE ABNORMALITY ABNORMAL RHYTHM ECG Compared to ECG 12/04/2023 08:46:40 T-wave abnormality now present Supraventricular tachycardia no longer present Electronically Signed On 12-04-2023 13:03:45 CDT by Remy Norton M.D. [id number]
[2023-12-04 10:13] LABS: Anion Gap 20.5 (5-19); Potassium 4.5 mmol/L (3.5-5.1)
--- NOTE | 2023-12-04 10:16 | CT_ITS ---
WS: [id number] CT ABDOMEN AND PELVIS NONCONTRAST HISTORY: flank pain TECHNIQUE: Imaging performed through the abdomen and pelvis. Coronal and sagittal reformats are submi tted. All CT scans at [facility] use at least one of these dose optimization techniques: auto mated exposure control; mA and/or kV adjustment per patient size (includes targeted exams where dose is matched to clinical indication); or iterative reconstruction. DLP: 563.47 mGy.cm COMPARISON: None available. Breathing motion artifact. Lower thorax: Breathing artifact at the lung bases. Heart is enlarged with a small pericardial effusi on. Nasogastric tube is present in the distal esophagus extending into the stomach. Liver: Normal size liver. No mass or bile duct dilatation. Gallbladder: Prior cholecystectomy. Pancreas: Mild pancreatic atrophy. There is diffuse soft tissue edema surrounding the pancreas. Pancr eas cannot be further evaluated without IV contrast and also degraded by the motion. No obvious duct dilatation. Spleen: Motion artifact. Normal size. Adrenal glands: Normal. No mass. Right kidney: Mild perinephric stranding. No obstruction. Left kidney: Mild perinephric stranding with no obstruction. Aorta: Mild atherosclerosis abdominal aorta with no aneurysm. Mesenteric edema with a small amount of fluid extending along the paracolic gutters. There is also fl uid surrounding the pancreas. No focal collection. Fluid extends to encase the duodenum. GI tract: Nasogastric tube in the stomach which is nondistended. There is edema noted within the stom ach antrum and the duodenum. No obvious obstruction. There is very mild fluid dilatation of the small bowel loops. Increased fecal material in the RIGHT colon. Abdominal wall: Negative. No hernia. Pelvis: Wolff catheter present in the urinary bladder. Tiny amount of free fluid in the pelvis. Osseous structures: L5 hemangioma. CT/CT kidney stone [id number] IMPRESSION: 1. Central mesenteric edema with fluid surrounding the pancreas and the duoden um. Most likely acute pancreatitis. There is no focal collection such as pseudo cyst. 2. Small amount of intraperitoneal fluid extending along the paracolic gutters . 3. Significant edema surrounding the stomach antrum and the proximal duodenum. No obstruction. This may all be secondary to pancreatitis or duodenitis. 4. Prior cholecystectomy. 5. Limited visualization of the pancreas without IV contrast. 6. No GI tract obstruction. 7. Mild cardiomegaly and pericardial effusion. 8. Nasogastric tube terminating in the stomach. 9. No free air.
[2023-12-04 10:33] LABS: NT Pro B Type Natriuretic Pept 50704 pg/mL (0-450)
[2023-12-04 10:33] LABS: Glucose Point of Care 235 mg/dL (70-110)
[2023-12-04 11:00] LABS: ABG PCO2 37.3 mmHg (35-45); Alveolar-Arterial Oxygen Gradi 6.3 mmHg (5-10); Arterial Blood Gas Hematocrit 28.1 % (42-52); Base Excess ABG 5.1 mmol/L (-2.0-2.0); Blood Gas Allen Test Pos; Blood Gas Operator Identificat MONRO; Blood Gas Sample Site Brachial, right; Blood Gas Sample Type Arterial; Carboxyhemoglobin 0.4 %THgb (0.4-20.1); HCO3 ABG 28.7 mmol/L (22-26); HGB O2 Sat 98.2 % (95-100); Ionized Calcium Level - ABG 1.2 mmol/L (1.1-1.4); Methemoglobin 0.6 % (0.4-1.5); Oxygen Device VENT; Oxygen Saturation ABG 99.2; PO2 FiO2 Ratio Arterial Blood 0; Potassium Level - ABG 4.5 mmol/L (3.5-5.0); Total Hemoglobin 9.2 g/dL (14-18)
--- NOTE | 2023-12-04 11:09 | PC.PHAR ---
KOLBY LOPEZ'Desiree ON DISCHARGE MED LIST FROM 11/24/23. NEW RX FOR HUMALOG KWIKPEN 3 UNITS TID SENT TO [facility]. NOT COVERED ON INSURANCE SO DR MEDINA CHANGED TO LANTUS SOLOSTAR, WHICH HAS NOT BEEN PICKED UP YET. SPOUSE STATES PT WILL USE LEVEMIR UNTIL IT IS GONE BEFORE PICKING UP LANTUS.
[2023-12-04 11:17] LABS: Reflex Lactate Order REFLEX LACTIC ORDERD
[2023-12-04] MEDS: piperacillin-tazobactam 3.375 GM in sodium chloride 0.9% (plus) 50 ML IV (11:18)
[2023-12-04 11:46] LABS: Lipase 29 U/L (13-60)
[2023-12-04 11:48] LABS: Troponin 5 2HR 77.37 ng/L (0-15); Troponin 5 2HR Delta 5.37 ABS# (0-10)
[2023-12-04] MEDS: pantoprazole 40 mg SDV 80 MG IVP (11:57)
[2023-12-04 12:00] LABS: Adenovirus Not Detected (NOT DETECT); Chlamydia Pneumoniae Not Detected (NOT DETECT); Coronavirus 229E,HKU1,NL63,OC4 Not Detected (NOT DETECT); Human Metapneumovirus Not Detected (NOT DETECT); Human Rhinovirus/Enterovirus Not Detected (NOT DETECT); Influenza A Not Detected (NOT DETECT); Influenza A H1 Not Detected (NOT DETECT); Influenza A H1-2009 Not Detected (NOT DETECT); Influenza A H3 Not Detected (NOT DETECT); Influenza B Not Detected (NOT DETECT); Mycoplasma Pneumoniae Not Detected (NOT DETECT); Parainfluenza Virus Type 1 Not Detected (NOT DETECT); Parainfluenza Virus Type 2 Not Detected (NOT DETECT); Parainfluenza Virus Type 3 Not Detected (NOT DETECT); Parainfluenza Virus Type 4 Not Detected (NOT DETECT); Respiratory Syncytial Virus A Not Detected (NOT DETECT); Respiratory Syncytial Virus B Not Detected (NOT DETECT); SARS-COV-2 Not Detected (NOT DETECT)
--- NOTE | 2023-12-04 12:06 | P.CONIM_ITS ---
Providers/Reason For Consult 2 Consulting Physician/Specialty*: charissa mak md / telenephrology Reason for Consult*: ESRD Requesting Physician: DR Horn Attending Physician: Dr Horn Primary Care Provider: Bi Leon MD History of Present Illness History of Present Illness Armin Jameson is a 78 year old male ESRD, insulin-dependent diabetes mellitus, microscopic polyangiitis, lung nodules, obstructive sleep apnea some amount of dementia. The patient was recently discharged from [facility] November 16, 2023 after a 5-day admission. At that time he came in with altered mental status and hypoglycemia and was diagnosed with infection and treated with antibiotics, his insulin management was adjusted, and his sugars improved. The patient saw his primary care physician who adjusted his insulin once again. The patient per family took Levemir insulin before he went to bed last night he did not wake up during the night then this morning he was found to be minimally responsive and hypoglycemic and brought to the emergency room where he was intubated. Patient in the ER had chest x-ray head CT chest abdominal CT and started on antibiotics. Renal was called for ESRD care. When the patient originally came to the ER his blood pressure was very high his blood pressure is now decreased after intubation and sedation. Review of Systems 2 Narrative: The patient is intubated and not verbal. I am unable to obtain. Per the patient's he was feeling well till yesterday he was eating better walking around. And last night took insulin and then has not awoken this morning she called EMS as he was minimally responsive. Medications/Allergies Home Medications Medication Instructions Recorded Confirmed Last Taken Type pantoprazole 40 mg tablet,delayed 40 mg PO BID #60 tabs 11/26/21 12/04/23 12/03/23 Rx release duloxetine 60 mg capsule,delayed 60 mg PO DAILY #90 caps 03/04/22 12/04/23 12/03/23 Rx release pen needle, diabetic 31 gauge x #100 ea 04/21/22 12/04/23 Unknown Rx 5/16 (Comfort EZ Pen [place]) blood sugar diagnostic (Blood #100 ea 07/15/22 12/04/23 Unknown Rx Glucose Test strips) blood-glucose meter #1 ea 07/15/22 12/04/23 Unknown Rx lancets 30 gauge (TRUEplus Lancets) #100 ea 05/18/23 12/04/23 Unknown Rx primidone 50 mg tablet 50 mg PO DAILY 08/06/23 12/04/23 12/03/23 History amlodipine 10 mg tablet 10 mg PO DAILY 11/21/23 12/04/23 12/03/23 History aspirin 81 mg tablet,delayed 81 mg PO DAILY 11/21/23 12/04/23 12/03/23 History release atorvastatin 40 mg tablet 40 mg PO DAILY 11/21/23 12/04/23 12/03/23 History folic acid 1 mg tablet 1 mg PO DAILY 11/21/23 12/04/23 12/03/23 History ondansetron HCl 8 mg tablet 8 mg PO Q6H PRN Nausea 11/21/23 12/04/23 Unknown History acyclovir 800 mg tablet 800 mg PO DAILY 12/04/23 12/04/23 12/03/23 History clonazepam 1 mg tablet 1 mg PO BEDTIME 12/04/23 12/04/23 12/03/23 History fluconazole 50 mg tablet 50 mg PO DAILY 12/04/23 12/04/23 12/03/23 History insulin detemir U-100 100 unit/mL See Rx Instructions .Route .COMPLEX 12/04/23 12/04/23 12/03/23 History (3 mL) subcutaneous pen (Levemir FlexPen) insulin glargine 100 unit/mL (3 20 unit SUBCUT BID 12/04/23 12/04/23 Unknown History mL) subcutaneous pen (Lantus Solostar U-100 Insulin) insulin lispro 100 unit/mL 3 unit SUBCUT TID 12/04/23 12/04/23 Unknown History subcutaneous pen (Humalog KwikPen (U-100) Insulin) mycophenolate mofetil 500 mg tablet 1,000 mg PO BID 12/04/23 12/04/23 Unknown History sulfamethoxazole 400 1 tab PO BID 12/04/23 12/04/23 12/03/23 History mg-trimethoprim 80 mg tablet tamsulosin 0.4 mg capsule 0.4 mg PO DAILY 12/04/23 12/04/23 12/03/23 History Allergies Allergy/AdvReac Type Severity Reaction Status Date / Time metformin AdvReac ADR-Diarrhe Verified 08/06/23 12:12 a Current Medications Generic Name Dose Route Start Last Admin Trade Name Freq PRN Reason Stop Dose Admin Dextrose 250 mls @ 1,000 mls/hr 12/04/23 08:43 12/04/23 11:23 D10w IV 0 mls/hr PRN PRN Infusion HYPOGLYCEMIA Fentanyl 1,000 mcg in 100 mls @ 0 mls/hr 12/04/23 09:00 12/04/23 09:01 Sublimaze IV 25 mcg/hr .Q0M NYA 2.5 mls/hr Administration Protocol Per Protocol Midazolam HCl 100 mg in 100 mls @ 0 mls/hr 12/04/23 09:00 12/04/23 09:40 Versed IV 4 mg/hr .Q0M NYA 4 mls/hr Titration Protocol Per Protocol PFSH Acute 2 PFSH: Medical History (Updated 12/04/23 @ 12:14 by Zackery Mak MD) ESRD (end stage renal disease) on dialysis Microscopic polyangiitis Diverticulitis Intention tremor Unintentional weight loss Asthenia Actinic keratoses Lung nodules Neuralgia Mass of spine Mild anemia Obstructive sleep apnea 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 Cervical pain Peripheral neuropathy, idiopathic Atherosclerosis of arteries Mood disorder 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 Poor compliance with medication Depression Cognitive impairment Cerebral AV malformation Diabetes Mixed hyperlipidemia Surgical History History of cholecystectomy History of colon resection Family History Other Cancer Social History Smoking and tobacco/nicotine status: never used tobacco/nicotine Second hand smoke exposure: No Alcohol intake: never Substance/Drug Use: never Lives independently: Yes Household members: spouse Marital status: Current occupational status: retired Previous occupational history: [employer] Current gender identity: Male Special naldo needs: No Agree to transfusion: Yes Vitals/I&O/Wt Last Vital Signs Pulse 104 H 12/04/23 11:45 Resp 14 12/04/23 11:45 BP 118/69 12/04/23 11:45 Pulse Ox 100 12/04/23 11:45 O2 Del Method Mechanical Ventilation 12/04/23 11:40 FiO2 40 12/04/23 11:13 12/03/23 12/04/2312/03/24 22:59 06:59 14:59 Intake Total 151.3 / 151.3 Balance 151.3 / 151.3 Weight last 48 hrs Weight 71.214 kg Physical Exam 2 Narrative: The patient was seen via A/V equipment. It was a telehealth examination. The nurse examined the patient. The patient is intubated he is minimally responsive to touch not voice. Elderly man in bed. Neck is supple his lungs have rhonchi. His heart is regular Abdomen is soft positive bowel sounds. Extremities do not have edema. Neuro minimally responsive. Patient has a right IJ permacath. Urinary Catheter Management: Wolff: Cath Placed During This Visit: yes Urinary Catheter Date of Insertion: 12/04/23 Data 12/04/23 09:11 12/04/23 09:11 Micro: Microbiology 12/04/23 10:24 Blood Culture - Preliminary Blood SPECIMEN COLLECTED A&P Assessment and plan (1) ESRD (end stage renal disease) on dialysis: 78-year-old gentleman 1. Second admission within 2 weeks for symptomatic hypoglycemia. Evaluation as per medicine. 1B. Second episode of hypoglycemia. Head CT noted. He has no acute intracranial hemorrhage or edema he has moderate atrophy and small vessel ischemic disease. Will evaluate for possible brain injury from recurrent hypoglycemia. 2. Evaluate possible infectious source. Patient has a white cell count of 19.7. CT scan shows central mesenteric edema fluid around the pancreas concerning for acute pancreatitis check lipase level. He has stomach and duodenal swelling. Chest x-ray has improved lung opacities resolving. Does not appear to have an pneumonia or volume overload. Would give antibiotics as per medicine. 3. End-stage renal disease patient is on dialysis Thursday and Thursday. Will do dialysis today to see if we can remove some insulin and see if it helps his mental status. Somewhat 4. Patient had an ABG this morning where he was alkalotic. Will adjust dialysis to have a lower bicarbonate bath. Of interest patient had a mild lactic acidosis of 2.7 5. Hyponatremia monitor with dialysis. 6. Patient's BNP is 50,000 we will attempt to remove fluids as tolerated. Please hold blood pressure pills to allow for fluid removal on dialysis tonight. Consent for hemodialysis and telehealth was obtained from the patient's . Case discussed with emergency room physician and nurse. And with hemodialysis nurse. Plan See above. Consult Attestations 2 Medical Necessity Statement: Intubated altered mental status end-stage renal disease, hypoglycemia in a diabetic who is insulin-dependent. Time Spent in Patient Care: Greater than 35 minutes (>than 50% of time spent in counselling and/or direct pt care on unit) . Coding Level of Care Code Acute Code for Chg Fwd Diagnoses ESRD (end stage renal disease) on dialysis N18.6; Z99.2
[2023-12-04 12:10] LABS: Glucose Point of Care 206 mg/dL (70-110)
[2023-12-04] MEDS: vancomycin 1,000 MG in sodium chloride 0.9% 250 ML 250 MG IV (12:19)
[2023-12-04 12:43] LABS: Lactic Acid level (Lactate) 2.4 mmol/L (0.5-2.2)
--- NOTE | 2023-12-04 12:51 | P.HP_ITS ---
Providers/Chief Complaint 2 Admitting Physician: Miles Horn MD Primary Care Provider: Bi Leon MD Chief Complaint: hypoglycemic, unresponsive History of Present Illness Armin Jameson is a 78 year old male with history of end-stage renal disease on hemodialysis and diabetes who was recently i discharged on November 23 for hospital stay for hypoglycemia. He was also treated for pneumonia. This morning his found him unresponsive. He was last normal around 8 PM last night. Per report up was given when EMS picked him up his blood sugar was around 44. reports at home when she found him occasional shaking of his lower extremities that was occurring intermittently, but he was otherwise not respond. He did receive D50 and route and blood sugar improved up to 200. He had recently had long-acting insulin reintroduced for what sounds like 2 days prior to the event. While in the emergency department he was intubated for airway protection secondary to his unresponsive state/GCS. reports no recent fevers, doing well prior to going to bed last night. In the emergency department, patient was intubated sedated given fentanyl and Versed. He received calcium chloride, hydralazine, Keppra, Protonix IV, Zosyn and vancomycin. He also received vecuronium for the intubation. Review of Systems 2 General: Reports: ROS unobtainable due to endotracheal tube and ROS unobtainable due to mental status Medications/Allergies Home Medications Medication Instructions Recorded Confirmed Last Taken Type pantoprazole 40 mg tablet,delayed 40 mg PO BID #60 tabs 11/26/21 12/04/23 12/03/23 Rx release duloxetine 60 mg capsule,delayed 60 mg PO DAILY #90 caps 03/04/22 12/04/23 12/03/23 Rx release pen needle, diabetic 31 gauge x #100 ea 04/21/22 12/04/23 Unknown Rx 5/16 (Comfort EZ Pen [place]) blood sugar diagnostic (Blood #100 ea 07/15/22 12/04/23 Unknown Rx Glucose Test strips) blood-glucose meter #1 ea 07/15/22 12/04/23 Unknown Rx lancets 30 gauge (TRUEplus Lancets) #100 ea 05/18/23 12/04/23 Unknown Rx primidone 50 mg tablet 50 mg PO DAILY 08/06/23 12/04/23 12/03/23 History amlodipine 10 mg tablet 10 mg PO DAILY 11/21/23 12/04/23 12/03/23 History aspirin 81 mg tablet,delayed 81 mg PO DAILY 11/21/23 12/04/23 12/03/23 History release atorvastatin 40 mg tablet 40 mg PO DAILY 11/21/23 12/04/23 12/03/23 History folic acid 1 mg tablet 1 mg PO DAILY 11/21/23 12/04/23 12/03/23 History ondansetron HCl 8 mg tablet 8 mg PO Q6H PRN Nausea 11/21/23 12/04/23 Unknown History acyclovir 800 mg tablet 800 mg PO DAILY 12/04/23 12/04/23 12/03/23 History clonazepam 1 mg tablet 1 mg PO BEDTIME 12/04/23 12/04/23 12/03/23 History fluconazole 50 mg tablet 50 mg PO DAILY 12/04/23 12/04/23 12/03/23 History insulin detemir U-100 100 unit/mL See Rx Instructions .Route .COMPLEX 12/04/23 12/04/23 12/03/23 History (3 mL) subcutaneous pen (Levemir FlexPen) insulin glargine 100 unit/mL (3 20 unit SUBCUT BID 12/04/23 12/04/23 Unknown History mL) subcutaneous pen (Lantus Solostar U-100 Insulin) insulin lispro 100 unit/mL 3 unit SUBCUT TID 12/04/23 12/04/23 Unknown History subcutaneous pen (Humalog KwikPen (U-100) Insulin) mycophenolate mofetil 500 mg tablet 1,000 mg PO BID 12/04/23 12/04/23 Unknown History sulfamethoxazole 400 1 tab PO BID 12/04/23 12/04/23 12/03/23 History mg-trimethoprim 80 mg tablet tamsulosin 0.4 mg capsule 0.4 mg PO DAILY 12/04/23 12/04/23 12/03/23 History Allergies Allergy/AdvReac Type Severity Reaction Status Date / Time metformin AdvReac ADR-Diarrhe Verified 08/06/23 12:12 a PFSH Acute 2 PFSH: Medical History ESRD (end stage renal disease) on dialysis Microscopic polyangiitis Diverticulitis Intention tremor Unintentional weight loss Asthenia Actinic keratoses Lung nodules Neuralgia Mass of spine Mild anemia Obstructive sleep apnea 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 Cervical pain Peripheral neuropathy, idiopathic Atherosclerosis of arteries Mood disorder 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 Poor compliance with medication Depression Cognitive impairment Cerebral AV malformation Diabetes Mixed hyperlipidemia Surgical History History of cholecystectomy History of colon resection Family History Other Cancer Social History Smoking and tobacco/nicotine status: never used tobacco/nicotine Second hand smoke exposure: No Alcohol intake: never Substance/Drug Use: never Lives independently: Yes Household members: spouse Marital status: Current occupational status: retired Previous occupational history: [employer] Current gender identity: Male Special naldo needs: No Agree to transfusion: Yes Vitals/I&O/Wt Last Vital Signs Pulse 97 12/04/23 12:30 Resp 16 12/04/23 12:30 BP 122/69 12/04/23 12:30 Pulse Ox 100 12/04/23 12:30 O2 Del Method Mechanical Ventilation 12/04/23 12:30 FiO2 40 12/04/23 11:13 12/03/23 12/04/23 12/04/23 22:59 06:59 14:59 Intake Total 151.3 / 151.3 Balance 151.3 / 151.3 Weight last 48 hrs Weight 71.214 kg Physical Exam 2 Narrative: General exam demonstrates an unresponsive intubated white male with current stable vital signs. HEENT: Pupils equally round. They are reactive. Oropharynx demonstrates endotracheal tube. Slight amount of blood is endotracheal tube in OG tube. Neck is supple no lymphadenopathy thyromegaly Cardiovascular regular rate and rhythm, no murmur Lungs clear no wheezing or crackles Abdomen is soft. Bowel sounds are noted. No obvious organomegaly demonstrates Wolff Extremities no cyanosis clubbing or edema, cap refill brisk Skin no rash Neuro: Unresponsive Urinary Catheter Management: Wolff: Cath Placed During This Visit: yes Urinary Catheter Date of Insertion: 12/04/23 Data 12/04/23 09:11 12/04/23 09:11 Other Labs: ABG demonstrated pH 7.5, pCO2 37, pO2 of 187 on the ventilator. Initial pH was 7.45. Lactic acid 2.7 LFTs normal Troponin 72 with repeat of 77 BNP 50,000 Lipase 29 I have ordered a CK Recent TSH is normal Urinalysis to nurse to count reds, no white Respiratory panel negative Abdomen/pelvis CT was performed demonstrating some mesenteric edema around the pancreas and duodenum. Some edema around the stomach and proximal duodenum Head CT, reviewed by me as well no hemorrhage Chest x-ray reviewed by me no infiltrate. Dialysis catheter is noted. Blood culture and urine culture was obtained EKG reviewed by me demonstrates sinus tachycardia, normal axis, nonspecific ST-T wave changes Micro: Microbiology 12/04/23 10:24 Blood Culture - Preliminary Blood SPECIMEN COLLECTED A&P Assessment and plan (1) Hypoglycemia: Hold all insulin products Monitor sugar every 2 hours, consider glucose infusion should he become hypoglycemic again. Try to keep blood sugar greater than 120 (2) Seizure: Concern patient had seizure headers shaking intermittently was noted by and hypoglycemia Keppra given in the emergency department. For now continue 500 mg IV every 12 hours dose adjusted for hemodialysis patient. (3) Acute encephalopathy: Patient with acute encephalopathy. This is likely secondary to hypoglycemic event and seizure Monitor for improvement by lessening sedation tonight, tomorrow morning to see if patient has meaningful response Prevent any further hypoglycemia. Check CTA head and neck as patient was found unresponsive with neurologic change to make sure no large vessel thrombosis although stroke felt unlikely. (4) Acute respiratory failure: Patient intubated for airway protection Adjust ventilator as needed. Currently on minimal settings. ABG and chest x-ray tomorrow (5) Diabetes: Hold any for their insulin products Prevent hypoglycemia Qualifiers: Diabetes mellitus type: type 2 Diabetes mellitus nursing home insulin use: with long term care pharmacist use Diabetes mellitus complication status: with hyperglycemia Qualified Code(s): E11.65 - Type 2 diabetes mellitus with hyperglycemia; Z79.4 - snf (current) use of insulin (6) ESRD (end stage renal disease) on dialysis: Nephrology consult for hemodialysis needs Plan Abnormal CT with some mesenteric edema/duodenitis. Protonix 40 mg IV every 12 hours. Note that he has a little bit of bleeding in his orogastric tube, that may have come from intubation. This is not significant currently. Leukocytosis. Patient received a dose of vancomycin and Zosyn in the emergency department. There is no evidence of infection on his laboratory evaluation, and with his acute change his clinical presentation is consistent with encephalopathy from hypoglycemia. Hold further antibiotics. Anemia. Patient with anemia secondary to his renal disease or autoimmune disease. CBC daily. Elevated lactic acid. This is elevated secondary to seizure. He currently has good perfusion and this should clear. Elevated BNP and troponin. Check serial troponins, echocardiogram. This is likely secondary to seizure, end-stage renal disease. Other medical problems as outlined in his past medical history SCDs for DVT prophylaxis. Heparin subcu for DVT prophylaxis. Discussed CODE STATUS in detail with . They do not want CPR. They are amenable to pressors, continue intubation, ventilation. This may change as prognosis changes. Attestations 2 Medical Necessity Statement*: Will need greater than 2 midnight stay for evaluation of respiratory failure, seizure, hypoglycemia in this patient with guarded prognosis Critical Care Time: The high probability of a clinically significant, sudden or life threatening deterioration of the patient's [neurologic, endocrine, renal] system(s) required my full and direct attention, intervention and personal management. The critical care time is as shown. This time is in addition to time spent performing any reported procedures but includes the following: [x] Data and vital sign review and interpretation [x] Patient assessment, examination and intervention [x] Documentation [x] Medication orders and management Critical Care Time (min): 79 Coding Level of Care Code Critical Care >/= 30 minutes Critical care time (in minutes): 79 The high probability of a clinically significant, sudden or life threatening deterioration, as referenced in this documentation, required my full and direct attention, intervention and personal management. The critical care time shown is in addition to time spent performing any reported separately billable procedures and includes the following: [x] Data and vital sign review and interpretation [x ] Patient assessment, examination and intervention [x] Medication orders and management [x] Patient/Family updates as able [x] Care Coordination and Documentation. Diagnoses Hypoglycemia E16.2 Seizure R56.9 Acute encephalopathy G93.40 Acute respiratory failure J96.00 Type 2 diabetes mellitus with hyperglycemia, with long-term current use of insulin E11.65; Z79.4 Diabetes mellitus type: type 2 Diabetes mellitus long term care pharmacist insulin use: with nursing home use Diabetes mellitus complication status: with hyperglycemia ESRD (end stage renal disease) on dialysis N18.6; Z99.2
--- NOTE | 2023-12-04 12:57 | CT_ITS ---
WS: [id number] CT ANGIOGRAM CEREBRAL AND CAROTID ARTERIES HISTORY: unresponsive TECHNIQUE: CT angiogram is performed of the carotid and cerebral arteries. During arterial injection imaging is obtained from the skull vertex to the aortic arch in 1.25 mm imaging. Coronal and sagittal reformats are submitted. Additional multi planar reformats of the carotid and cerebral arteries are submitted, MIP imaging also reviewed. NASCET criteria utilized. [facility] at least one of these dose optimization techniques: automated exposure control; mA and/or kV adjust ment per patient size (includes targeted exams where dose is matched to clinical indication); or iter ative reconstruction. CONTRAST: Omnipaque 350; 100 mL IV. DLP: 446.98 mGy.cm COMPARISON: None available. Patient is intubated. Nasogastric tube is also noted along the upper cervical esophagus. Right-sided dialysis catheter. Carotid Angiogram: Right carotid: Common carotid artery: Arises normally from the innominate artery. No significant plaque or stenosis. Internal carotid artery: Small amount of calcified plaque at the bifurcation. External carotid artery: Patent. Left carotid: Common carotid artery: Arises normally from the aorta. No significant plaque or stenosis. Internal carotid artery: Small amount of calcified plaque at the origin of the ICA. No high-grade noel nosis. External carotid artery: Patent. Right vertebral artery: Unremarkable. Left vertebral artery: Unremarkable. Arises normally from the subclavian artery. Subclavian arteries: No stenosis or significant abnormality. Upper thorax: Motion artifact in the upper lung williamson. Thyroid gland: Normal. Osseous structures: Unremarkable. CEREBRAL ANGIOGRAM: Intracranial vertebral arteries: Distal RIGHT vertebral artery through the foramen magnum is partiall y obscured by artifact from metal. LEFT vertebral artery patent. Basilar artery: No significant stenosis or occlusion. No aneurysm. Intracranial Internal carotid arteries: Mild plaque. No high-grade stenosis. Middle cerebral arteries: Normal. Anterior cerebral arteries and ACOM: Normal. Posterior cerebral arteries and PCOM's: Normal posterior cerebral arteries. No aneurysm or occlusion. Dominant RIGHT posterior communicating artery. Hypoplastic LEFT posterior communicating artery. Dural venous sinuses are normally enhancing. Mastoid air cells: Normal. Paranasal sinuses: Normal. Calvarium: Normal. CT/CT angio headneck* [id number] IMPRESSION: 1. Mild atherosclerotic plaque at the origin of the cervical ICAs. No signific ant stenosis. 2. No thrombus or occlusion in the k[place] of [place]. No aneurysm. 3. Mild atherosclerotic plaque intracranial carotid arteries. 4. Patient is intubated. 5. Nasogastric tube. 6. Motion artifact upper lung williamson.
[2023-12-04 12:59] LABS: Hepatitis C Virus Antibody Non-Reactive (Nonreactive)
[2023-12-04 13:19] LABS: Hepatitis B Surface AB < 3.5 (11.5-1000)
[2023-12-04 13:24] LABS: Creatine Phosphokinase 44 U/L (39-308)
[2023-12-04 13:41] LABS: Hepatitis B Surface Antigen Reactive (Nonreactive)
[2023-12-04] MEDS: iohexol 350 mg/mL 500 mL Btl (per mL) IV (13:46)
[2023-12-04] MEDS: sodium chloride 0.9% 1,000 ML 100 ML IV ×2 (14:21→23:56)
[2023-12-04] MEDS: propofol 1,000 MG/100 ML INJ 2.14000000000000012 MG IV (14:24)
--- NOTE | 2023-12-04 15:25 | PC.HD ---
Patient has a reactive Hepatitis BsAg. Per Linda SNELL at [facility] (outpatient dialysis clinic), patient received Hepatitis B vaccination on 12/01.
[2023-12-04 15:45] LABS: Troponin 5 6HR 100.3 ng/L (0-15); Troponin 5 6HR Delta 28.3 ng/L (0-12)
--- NOTE | 2023-12-04 16:12 | ECG_ITS ---
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 Measurements Intervals [place] Rate: 80 P: 66 OR: 189 QRS: 71 QRSD: 80 T: 105 QT: 379 QTc: 440 Interpretive Statements SINUS RHYTHM SEPTAL MYOCARDIAL INFARCTION , OF INDETERMINATE AGE [40+ ms Q WAVE IN V1/V2] Nonspecific T wave changes Compared to ECG 12/04/2023 10:12:50 Myocardial infarct finding now present Sinus tachycardia no longer present T-wave abnormality no longer present Electronically Signed On 12-06-2023 20:35:02 CDT by Faustino Duvall M.D. [email or web address]
[2023-12-04] MEDS: heparin 5,000 unit/mL INJ 1 mL 5000 UNIT SUBCUT (17:40)
--- NOTE | 2023-12-04 17:50 | PC.NURSE ---
NUrse attempted to transition form versed to propofol for sedation. Patient is currently receiving dialysis and his blood pressures did not tolerate both dialysis and propofol at the same time. Nurse paused propofol and will transition meds after dialysis is complete.
[2023-12-04 17:57] LABS: Glucose Point of Care 95 mg/dL (70-110)
[2023-12-04 17:57] LABS: Glucose Point of Care 137 mg/dL (70-110)
[2023-12-04 17:57] LABS: Glucose Point of Care 88 mg/dL (70-110)
--- NOTE | 2023-12-04 19:38 | PC.NURSE ---
Late note: Received patient from ER staff at 1356. Patient is intubated. On 4mg versed drip and 75mcg drip of versed. Unresponsive. BP: 161/89, HR: 97, SPO2: 97%. Temp:100.0.
[2023-12-04] MEDS: fentaNYL 1,000 MCG/100 ML BAG 10 MCG IV (19:39)
--- NOTE | 2023-12-04 19:43 | PC.NURSE ---
2L removed during dialysis on 12/04/2023
[2023-12-04 20:51] LABS: Glucose Point of Care 93 mg/dL (70-110)
[2023-12-04] MEDS: levETIRAcetam 500 MG/100 ML PREMIX 400 MG IV (21:18)
[2023-12-04] MEDS: pantoprazole 40 mg SDV IVP (23:56)
[2023-12-05] VITALS (45 sets, daily range): BP systolic 104–181; BP diastolic 60–89; PULSE 66–97; RESP 11–17; TEMP 36.2–36.6; O2SAT 10–100
--- NOTE | 2023-12-05 02:12 | PC.NURSE ---
Addendum entered by Mehnaz Chahal RN 12/05/23 02:12: witnessed waste of versed drip Original Note: Wasted 66 mL versed gtt with ALIS Darby.
[2023-12-05 02:19] LABS: Glucose Point of Care 97 mg/dL (70-110)
[2023-12-05 02:19] LABS: Glucose Point of Care 91 mg/dL (70-110)
[2023-12-05] MEDS: heparin 5,000 unit/mL INJ 1 mL 5000 UNIT SUBCUT ×2 (02:35→14:37)
[2023-12-05] MEDS: propofol 1,000 MG/100 ML INJ 10.6799999999999997 MG IV (02:38)
[2023-12-05] MEDS: fentaNYL 1,000 MCG/100 ML BAG 12.5 MCG IV (03:43)
[2023-12-05 04:45] LABS: Basophils # 0.1 10^3/uL (0.0-0.1); Eosinophils # 0.1 10^3/uL (0.0-0.8); Eosinophils % 0.8 %; Hematocrit 25.1 % (37-53); Lymphocytes # 0.8 10^3/uL (0.8-4.8); Lymphocytes % 10.6 %; Mean Corpuscular HGB Conc 31.1 g/dL (30-55); Mean Corpuscular Hemoglobin 28.7 pg (27-33); Mean Corpuscular Volume 92.3 fl (82-101); Mean Platelet Volume 9.2 fL (7.4-10.4); Monocytes # 0.8 10^3/uL (0.2-0.9); Monocytes % 10.6 %; Neutrophils # 5.49 10^3/uL (1.8-7.7); Neutrophils % 75.9 %; Nucleated Red Blood Cells % 0 %; Platelet Count 155 10^3/cmm (157-399); Red Blood Count 2.72 10^6/uL (3.85-5.65); Red Cell Distribution Width 16.2 % (12.1-15.1); White Blood Count 7.24 10^3/uL (3.29-11.43)
[2023-12-05 04:54] LABS: ABG PCO2 38.5 mmHg (35-45); ABG PH Result 7.45 (7.35-7.45); Arterial Blood Gas Hematocrit 29.6 % (42-52); Base Excess ABG 2.8 mmol/L (-2.0-2.0); Blood Gas Allen Test Pos; Blood Gas Sample Site Radial, left; Blood Gas Sample Type Arterial; HCO3 ABG 26.9 mmol/L (22-26); Oxygen Device VENT; PO2 FiO2 Ratio Arterial Blood 0
[2023-12-05 05:06] LABS: Alanine Aminotransferase 13 U/L (0-41); Albumin Level 2.6 g/dL (3.5-5.2); Alkaline Phosphatase 44 U/L (40-130); Anion Gap 11.4 (5-19); Aspartate Amino Transferase 16 U/L (0-40); Blood Urea Nitrogen 25 mg/dL (8-23); Calcium 8.2 mg/dL (8.5-10.5); Carbon Dioxide 26 mmol/L (22-29); Chloride 103 mmol/L (98-107); Creatinine Clr Calc Pharmacy 14.6116; Globulin 3.1 g/dL (1.3-4.6); Glucose 93 mg/dL (65-115); Magnesium 1.8 mg/dL (1.7-2.3); Osmolality Calculated 286 mOsm/kg (285-295); Phosphorus 3.3 mg/dL (2.5-4.5); Potassium 4.4 mmol/L (3.5-5.1); Sodium 136 mmol/L (136-145); Total Bilirubin 0.2 mg/dL (0.15-1.2); Total Protein 5.7 g/dL (6.6-8.7)
--- NOTE | 2023-12-05 06:00 | USCV_ITS ---
Armin Jameson Age: 78 Gender: M : 1945 Exam Date: 12/05/2023 09:06 Ordering Phys: Miles Horn MD Technologist: Noe Gordon Exam Location: [facility] [place] Indication: elevated trop BP: 140 / 78 HR: 87 Rhythm: Sinus Technical Quality: Adequate MEASUREMENTS (Male / Female) Normal Values 2D ECHO LVOT Diameter 2.1 cm LV Ejection Fraction MOD 2C 49.1 % LV Ejection Fraction 2C AL 47.9 % LA Diameter 1.4 cm RA Systolic Volume 4C AL 37.4 ml RA Systolic Volume 4C MOD 36.3 ml LA Sys Volume AL 44.4 cm cubed LA Sys Volume Index AL 22.6 cm cubed/m squared Aorta at Sinotubular Diameter 2.8 cm IVC Diameter 1.7 cm M-MODE LA Ao Ratio MM 1.0 AV Cusp Separation MM 1.6 cm DOPPLER AV Peak Velocity 128.0 cm/s LVOT Peak Velocity 120.0 cm/s AV Area Cont Eq vti 3.1 cm squared AV Area Cont Eq pk 3.2 cm squared MV Peak Velocity 171.0 cm/s MV Area PHT 9.8 cm squared Mitral E to A Ratio 0.5 TV Peak Velocity 163.0 cm/s TR Peak Velocity 183.0 cm/s TR Peak Gradient 13.4 mmHg TR Mean Velocity 133.0 cm/s TR Mean Gradient 7.9 mmHg TR Velocity Time Integral 35.1 cm Right Atrial Pressure 8.0 mmHg Pulmonary Artery Systolic Pressu 21.4 mmHg PV Peak Velocity 115.0 cm/s RV Ejection Time 0.2 s FINDINGS Left Ventricle Left ventricle is normal in size. LV systolic function is mildly reduced with EF of 45 to 50%. Mild hypokinesis of anterior and anterolateral hernández. Grade 1 diastolic dysfunction. Right Ventricle Normal in size and function Right Atrium Normal in size Left Atrium Normal in size Mitral Valve Mild mitral annular calcification. Mild mitral stenosis with mean gradient of 5 mmHg. Mild mitral regurgitation. Aortic Valve Structurally normal aortic valve. No significant stenosis or regurgitation. Tricuspid Valve Mild tricuspid regurgitation. Pulmonary artery systolic pressure is normal. Pulmonic Valve Not well visualized Pericardium Small to medium sized pericardial effusion Aorta Normal in size IVC Appears to be normal CONCLUSIONS LV systolic function is mildly reduced with EF of 45-50%. Above mentioned regional wall motion abnormalities. Grade 1 diastolic dysfunction Mild mitral stenosis. Mild mitral regurgitation Mild tricuspid regurgitation Small to medium sized pericardial effusion No comparison studies are available. Ric Johnson MD (Electronically Signed) Final Date: 07 December 2023 08:49 S
[2023-12-05 06:19] LABS: Glucose Point of Care 92 mg/dL (70-110)
--- NOTE | 2023-12-05 07:00 | XRR_ITS ---
PROCEDURE INFORMATION: Exam: XR Chest Exam date and time: 12/05/2023 5:54 AM Age: 78 years old Clinical indication: Patient HX: F/u for resp failure. Intubated. TECHNIQUE: Imaging protocol: Radiologic exam of the chest. Views: 1 view. COMPARISON: CR XR chest 1V portable [id number] 12/04/2023 9:24 AM FINDINGS: Lungs: Unremarkable. No consolidation. Pleural spaces: Unremarkable. No pleural effusion. No pneumothorax. Heart/Mediastinum: Unremarkable. No cardiomegaly. Bones/joints: Unremarkable. Other findings: Stable life support lines. XR/XR chest 1V portable [id number] IMPRESSION: No acute findings.
[2023-12-05] MEDS: atorvastatin 40 mg Tablet PO (08:25)
[2023-12-05] MEDS: tamsulosin 0.4 mg Capsule 0.400000000000000022 MG PO (08:25)
[2023-12-05] MEDS: duloxetine 60 mg Capsule PO (08:25)
[2023-12-05] MEDS: primidone 50 mg Tablet PO (08:25)
[2023-12-05] MEDS: aspirin 81 mg EC Tablet PO (08:25)
[2023-12-05] MEDS: levETIRAcetam 500 MG/100 ML PREMIX 400 MG IV ×2 (08:25→20:31)
[2023-12-05] MEDS: folic acid 1 mg Tablet PO (08:25)
[2023-12-05] MEDS: dextrose 5%-sod chloride 0.9% 1,000 ML 100 ML IV (08:26)
[2023-12-05] MEDS: piperacillin-tazobactam 3.375 GM in sodium chloride 0.9% (plus) 50 ML IV ×2 (08:26→20:31)
[2023-12-05 08:49] LABS: Estmated Average Glucose 148; Hemoglobin A1C 6.8 % (4.0-6.0)
--- NOTE | 2023-12-05 08:51 | P.PN_ITS ---
Subjective 2 Subjective: I have asked ICU nurse to wean off sedation, start weaning trial With Versed he might take some time to wake up We need to assess his neurological status Nephro is on board for dialysis He is on minimal ventilator settings Hemodynamically stable I have asked nurse to start D5 normal saline for hypoglycemic events yesterday this morning blood sugar is still around 90s, Delta troponin noted, will request echo CTA head and neck unremarkable CT abdomen pelvis concerning for pancreatitis however lipase is unremarkable Vitals/I&O/Wt Last Vital Signs Temp 97.2 F L 12/05/23 08:00 Pulse 72 12/05/23 08:00 Resp 14 12/05/23 08:00 BP 140/78 12/05/23 08:00 Pulse Ox 100 12/05/23 08:00 O2 Del Method Mechanical Ventilation 12/05/23 08:00 FiO2 30 12/05/23 08:00 12/04/23 12/05/23 12/05/23 22:59 06:59 14:59 Intake Total 560.312 / 281.602 7151.917 / 2159.921 1016.812 / 1016.812 Output Total 2600 / 2600 100 / 2700 Balance -2039.688 / -2403.313 8658.917 / -475.116 4857.812 / 1016.812 Weight last 48 hrs Weight 75.75 kg Weight 69 kg Weight 72.121 kg Weight 71.214 kg Physical Exam 2 Narrative: Patient intubated and sedated FiO2 30% PEEP 5 Clinically euvolemic No signs of CHF Bilateral assisted breath sounds Hemodynamically stable Neuroexam limited Urinary Catheter Management: Wolff: Cath Placed During This Visit: yes Reason for Continuing Indwelling Catheter: Accurate Measurement of Urinary Output in Critically Ill Patients Urinary Catheter Date of Insertion: 12/04/23 Data 12/05/23 04:11 12/05/23 04:11 Micro: Microbiology 12/04/23 09:07 Gram Stain - Final Sputum - Endotracheal Wash 12/04/23 10:24 Blood Culture - Preliminary Blood SPECIMEN COLLECTED A&P Assessment and plan (1) Diabetes: Qualifiers: Diabetes mellitus type: type 2 Diabetes mellitus technician terminal and repeater insulin use: with technician terminal and repeater use Diabetes mellitus complication status: with hyperglycemia Qualified Code(s): E11.65 - Type 2 diabetes mellitus with hyperglycemia; Z79.4 - watermelon inspector (current) use of insulin (2) Hypoglycemia: (3) GERD (gastroesophageal reflux disease): Qualifiers: Esophagitis presence: esophagitis presence not specified Qualified Code(s): K21.9 - Gastro-esophageal reflux disease without esophagitis (4) ESRD (end stage renal disease) on dialysis: (5) ESRD on dialysis: (6) Iron deficiency: (7) Anemia: (8) Microscopic polyangiitis: (9) Acute encephalopathy: (10) 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: (11) Seizure: (12) Pneumonia: (13) Pancreatitis: Plan Metabolic encephalopathy related to hypoglycemia I will start him on D5 normal saline Check A1c level End-stage renal disease Consulted nephro Continue artery disease I will do trial of high-dose steroids for now secondary to hypoglycemia Seizure: We are continuing effort epileptic for now Respiratory failure requiring mechanical ventilation for airway protection Plan for weaning trial and extubation today if possible Will assess neurological status once he is off sedation Anemia: Normocytic: Noted: Repeat H&H Troponin noted: EKG showing sinus rhythm I do not see any sign of ischemia infarction Wait on echo report DVT prophylaxis: Heparin CODE STATUS: Limited resuscitation: No CPR okay with ice admission intubation pressors Attestations 2 Medical Necessity Statement*: Continue ICU management Coding Level of Care Code Critical Care >/= 30 minutes Critical care time (in minutes): 30 The high probability of a clinically significant, sudden or life threatening deterioration, as referenced in this documentation, required my full and direct attention, intervention and personal management. The critical care time shown is in addition to time spent performing any reported separately billable procedures and includes the following: [x] Data and vital sign review and interpretation [x ] Patient assessment, examination and intervention [x] Medication orders and management [x] Patient/Family updates as able [x] Care Coordination and Documentation. Diagnoses Type 2 diabetes mellitus with hyperglycemia, with long-term current use of insulin E11.65; Z79.4 Diabetes mellitus type: type 2 Diabetes mellitus technician terminal and repeater insulin use: with technician terminal and repeater use Diabetes mellitus complication status: with hyperglycemia Hypoglycemia E16.2 Gastroesophageal reflux disease, esophagitis presence not specified K21.9 Esophagitis presence: esophagitis presence not specified ESRD (end stage renal disease) on dialysis N18.6; Z99.2 Iron deficiency E61.1 Anemia D64.9 Microscopic polyangiitis M31.7 Acute encephalopathy G93.40 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
[2023-12-05] MEDS: methylPREDNISolone sod succ 125 mg/2 mL INJ 60 MG IVP ×2 (10:37→23:21)
[2023-12-05 10:38] LABS: Glucose Point of Care 114 mg/dL (70-110)
--- NOTE | 2023-12-05 10:42 | PM.PN ---
Subjective Subjective: The patient was seen and examined. He remains intubated. Not on pressors. Responds to pain not to voice. Patient is sedated. Medications: Reviewed: Yes Medication Review Details: Current Medications Acetaminophen (Acetaminophen 325 Mg Tablet) 650 mg PO Q6H PRN PRN Reason: MILD PAIN Aspirin (Aspirin 81 Mg Ec Tablet) 81 mg PO DAILY [facility] Last Admin: 12/05/23 08:25 Dose: 81 mg Atorvastatin Calcium (Atorvastatin 40 Mg Tablet) 40 mg PO DAILY [facility] Last Admin: 12/05/23 08:25 Dose: 40 mg Duloxetine HCl (Duloxetine 60 Mg Capsule) 60 mg PO DAILY [facility] Last Admin: 12/05/23 08:25 Dose: 60 mg Folic Acid (Folic Acid 1 Mg Tablet) 1 mg PO DAILY [facility] Last Admin: 12/05/23 08:25 Dose: 1 mg Heparin Sodium (Porcine) (Heparin 5,000 Unit/Ml Inj 1 Ml) 5,000 unit SUBCUT Q12H [facility] Last Admin: 12/05/23 02:35 Dose: 5,000 unit Dextrose (D10w) 250 mls @ 1,000 mls/hr IV PRN PRN PRN Reason: HYPOGLYCEMIA Last Infusion: 12/04/23 11:23 Dose: 0 mls/hr Fentanyl (Sublimaze) 1,000 mcg in 100 mls @ 0 mls/hr IV .Q0M [facility]; Protocol Last Titration: 12/05/23 08:04 Dose: 50 mcg/hr, 5 mls/hr Propofol (Diprivan) 1,000 mg in 100 mls @ 0 mls/hr IV .Q0M [facility]; Protocol Last Titration: 12/05/23 07:57 Dose: 0 mcg/kg/min, 0 mls/hr Levetiracetam (Keppra) 500 mg in 100 mls @ 400 mls/hr IV Q12H [facility] Last Infusion: 12/05/23 08:49 Dose: Infused Piperacillin Sod/Tazobactam (Sod 3.375 gm/ Sodium Chloride) 50 mls @ 12.5 mls/hr IV Q12H [facility] Last Admin: 12/05/23 08:26 Dose: 12.5 mls/hr Dextrose/Sodium Chloride (Dextrose 5%-Sod Chloride 0.9%) 1,000 mls @ 100 mls/hr IV .Q10H [facility] Last Admin: 12/05/23 08:26 Dose: 100 mls/hr Methylprednisolone Sodium Succinate (Methylprednisolone Sod Succ 125 Mg/2 Ml Inj) 60 mg IVP Q12H [facility] Last Admin: 12/05/23 10:37 Dose: 60 mg Ondansetron HCl (Ondansetron 2 Mg/Ml Sdv 2 Ml) 4 mg IVP Q6H PRN PRN Reason: NAUSEA AND VOMITING Pantoprazole Sodium (Pantoprazole 40 Mg Sdv) 40 mg IVP Q12H [facility] Last Admin: 12/04/23 23:56 Dose: 40 mg Primidone (Primidone 50 Mg Tablet) 50 mg PO DAILY [facility] Last Admin: 12/05/23 08:25 Dose: 50 mg Tamsulosin HCl (Tamsulosin 0.4 Mg Capsule) 0.4 mg PO DAILY [facility] Last Admin: 12/05/23 08:25 Dose: 0.4 mg Vitals/I&O/Wt Last Vital Signs Temp 97.2 F L 12/05/23 08:00 Pulse 72 12/05/23 08:00 Resp 11 L 12/05/23 09:40 BP 140/78 12/05/23 08:00 Pulse Ox 100 12/05/23 08:00 O2 Del Method Mechanical Ventilation 12/05/23 08:00 FiO2 30 12/05/23 09:40 12/04/23 12/05/23 12/05/23 22:59 06:59 14:59 Intake Total 560.312 / 132.809 4320.917 / 2159.921 1016.812 / 1016.812 Output Total 2600 / 2600 100 / 2700 Balance -2039.688 / -9446.061 4971.917 / -172.527 6446.812 / 1016.812 Weight last 48 hrs Weight 75.75 kg Weight 69 kg Weight 72.121 kg Weight 71.214 kg Physical Exam Narrative: The patient was seen via A/V equipment. It was a telehealth examination. The nurse examined the patient. The patient is intubated he is minimally responsive to touch Elderly man in bed. vent fio2 of 30% Neck is supple lungs good air movement b/l. heart is regular, + s1, s2 Abdomen is soft positive bowel sounds. Extremities do not have edema. Neuro minimally responsive. Patient has a right IJ permacath. Urinary Catheter Management: Wolff: Cath Placed During This Visit: yes Reason for Continuing Indwelling Catheter: Accurate Measurement of Urinary Output in Critically Ill Patients Urinary Catheter Date of Insertion: 12/04/23 Data 12/05/23 04:11 12/05/23 04:11 Micro: Microbiology 12/04/23 10:24 Blood Culture - Preliminary Blood NEGATIVE TO DATE 12/04/23 09:24 Urine Culture - Preliminary Urine,Clean Catch 12/04/23 09:07 Gram Stain - Final Sputum - Endotracheal Wash A&P Assessment and plan (1) ESRD (end stage renal disease) on dialysis: 78-year-old gentleman 1. Second admission within 2 weeks for symptomatic hypoglycemia. Evaluation as per medicine. 2. Head CT noted. He has no acute intracranial hemorrhage or edema he has moderate atrophy and small vessel ischemic disease. Will evaluate for possible brain injury from recurrent hypoglycemia. 3. leukocytosis is improving. CT scan shows central mesenteric edema fluid around the pancreas concerning for acute pancreatitis check lipase level. He has stomach and duodenal swelling. Chest x-ray has improved lung opacities resolving. Does not appear to have an pneumonia or volume overload. -Renal dose antibiotics as per medicine. 4. End-stage renal disease patient is on dialysis Thursday and Thursday. S/P HD yesterday 5. anemia- hgb dropped from 10- 7.8- repeat and monitor for a bleed. give epo 6. Patient's BNP was 50,000 yesterday- monitor Case discussed with pts son and nurse. telehealth exam Plan See above. Attestations Medical Necessity Statement*: esrd, hypoglycemia, not responsive Time Spent in Patient Care: 16 - 35 minutes (>than 50% of time spent in counselling and/or direct pt care on unit). Coding Level of Care Code Acute Code for Chg Fwd Diagnoses ESRD (end stage renal disease) on dialysis N18.6; Z99.2
[2023-12-05 10:53] LABS: Hematocrit 25.9 % (37-53)
[2023-12-05] MEDS: pantoprazole 40 mg SDV IVP ×2 (11:57→23:21)
[2023-12-05] MEDS: epoetin alfa 10,000 unit/mL INJ 10000 UNIT SUBCUT (11:58)
[2023-12-05 13:15] LABS: Glucose Point of Care 71 mg/dL (70-110)
[2023-12-05 13:25] LABS: Glucose Point of Care 182 mg/dL (70-110)
[2023-12-05 16:33] LABS: Glucose Point of Care 253 mg/dL (70-110)
[2023-12-05] MEDS: dextrose 5%-sod chloride 0.9% 1,000 ML 50 ML IV (19:01)
[2023-12-05 19:03] LABS: Glucose Point of Care 270 mg/dL (70-110)
[2023-12-05 21:35] LABS: Glucose Point of Care 285 mg/dL (70-110)
--- NOTE | 2023-12-05 21:45 | PC.NURSE ---
Blood Sugar/Lower extremity Pulse Patient's blood sugar remaining elevated at 285. Additionally, patient's left foot cool to touch in comparison to right foot. Capillary refill >3 seconds in both lower extremities, color the same bilaterally, left pedal pulse +3 while right pedal pulse +[address] Rizo notified of both situations; orders received to stop D5NS and order placed by physician for a lower extremity arterial doppler scan.
[2023-12-06] VITALS (59 sets, daily range): BP systolic 113–187; BP diastolic 59–100; PULSE 80–106; RESP 8–21; TEMP 36.4–37.1; O2SAT 96–100; BMI 21.0
[2023-12-06] MEDS: heparin 5,000 unit/mL INJ 1 mL 5000 UNIT SUBCUT ×2 (02:53→13:31)
[2023-12-06 03:51] LABS: Glucose Point of Care 242 mg/dL (70-110)
[2023-12-06 03:51] LABS: Glucose Point of Care 276 mg/dL (70-110)
[2023-12-06 03:51] LABS: Glucose Point of Care 263 mg/dL (70-110)
[2023-12-06 04:34] LABS: ABG PCO2 36.8 mmHg (35-45); ABG PH Result 7.36 (7.35-7.45); Arterial Blood Gas Hematocrit 31.9 % (42-52); Base Excess ABG -4.3 mmol/L (-2.0-2.0); Blood Gas Operator Identificat JB; Blood Gas Sample Site Brachial, right; Blood Gas Sample Type Arterial; HCO3 ABG 20.7 mmol/L (22-26); Oxygen Device VENT
[2023-12-06 04:35] LABS: Blood Gas Tidal Volume 0.45; PO2 FiO2 Ratio Arterial Blood 0
[2023-12-06 05:50] LABS: Basophils % 0.3 %; Hematocrit 28.7 % (37-53); Lymphocytes # 0.4 10^3/uL (0.8-4.8); Lymphocytes % 4.4 %; Mean Corpuscular HGB Conc 31.4 g/dL (30-55); Mean Corpuscular Hemoglobin 29.3 pg (27-33); Mean Corpuscular Volume 93.5 fl (82-101); Mean Platelet Volume 9.3 fL (7.4-10.4); Monocytes # 0.1 10^3/uL (0.2-0.9); Monocytes % 1.3 %; Neutrophils # 9.19 10^3/uL (1.8-7.7); Neutrophils % 92.8 %; Nucleated Red Blood Cells % 0 %; Platelet Count 230 10^3/cmm (157-399); Red Blood Count 3.07 10^6/uL (3.85-5.65); Red Cell Distribution Width 15.9 % (12.1-15.1); White Blood Count 9.91 10^3/uL (3.29-11.43)
--- NOTE | 2023-12-06 06:00 | USR_ITS ---
PROCEDURE INFORMATION: Exam: US Duplex Bilateral Lower Extremity Arteries Exam date and time: 12/06/2023 7:35 AM Age: 78 years old Clinical indication: Other: Cool foot; Patient HX: Patient on vent; Additional info: Cool foot, eval for pad TECHNIQUE: Imaging protocol: Real-time ultrasound scan of the arteries of the bilateral lower extremities with 2-D lincoln scale, color Doppler flow and spectral waveform analysis. Images documented and saved. COMPARISON: CT hip RT wo con* [id number] 12/02/2022 4:27 AM FINDINGS: Right common femoral artery: No occlusion or significant stenosis. Normal waveform. Right superficial femoral artery: No occlusion or significant stenosis. Normal waveform. Right popliteal artery: No occlusion or significant stenosis. Normal waveform. Right calf/foot arteries: No occlusion or significant stenosis in the visualized arteries. Normal waveforms. Dorsalis pedis artery is patent. Right anterior tibial artery was excluded from the examination. Right peroneal artery was excluded from the examination. Left common femoral artery: No occlusion or significant stenosis. Normal waveform. Left superficial femoral artery: No occlusion or significant stenosis. Normal waveform. Left popliteal artery: No occlusion or significant stenosis. Normal waveform. Left calf/foot arteries: No occlusion or significant stenosis in the visualized arteries. Normal waveforms. Dorsalis pedis artery is patent. Left anterior tibial artery is excluded from the examination. Left peroneal artery was excluded from the examination. US/CV arterial duplex [facility] [id number] IMPRESSION: 1. No stenosis or occlusion. 2. Bilateral anterior tibial and anterior peroneal arteries are excluded from the examination.
[2023-12-06 06:07] LABS: Blood Urea Nitrogen 42 mg/dL (8-23); Calcium 8.6 mg/dL (8.5-10.5); Carbon Dioxide 16 mmol/L (22-29); Chloride 98 mmol/L (98-107); Creatinine Clr Calc Pharmacy 11.6281; Glucose 250 mg/dL (65-115); Osmolality Calculated 295 mOsm/kg (285-295); Sodium 133 mmol/L (136-145)
[2023-12-06 06:09] LABS: Glucose Point of Care 280 mg/dL (70-110)
[2023-12-06 06:10] LABS: Alanine Aminotransferase 15 U/L (0-41); Albumin Level 3.1 g/dL (3.5-5.2); Alkaline Phosphatase 55 U/L (40-130); Aspartate Amino Transferase 15 U/L (0-40); Blood Urea Nitrogen 40 mg/dL (8-23); Calcium 8.4 mg/dL (8.5-10.5); Carbon Dioxide 18 mmol/L (22-29); Chloride 98 mmol/L (98-107); Creatinine Clr Calc Pharmacy 11.2272; Globulin 3.2 g/dL (1.3-4.6); Glucose 249 mg/dL (65-115); Iron 56 ug/dL (59-158); Magnesium 2.1 mg/dL (1.7-2.3); Osmolality Calculated 296 mOsm/kg (285-295); Percent Saturation 37.3 % (20-50); Sodium 134 mmol/L (136-145); Total Bilirubin 0.2 mg/dL (0.15-1.2); Total Iron Binding Capacity 150 mcg/dl; Total Protein 6.3 g/dL (6.6-8.7); Unsaturated Iron Binding 94 ug/dL (112-347)
[2023-12-06 06:15] LABS: Anion Gap 24.6 (5-19); Potassium 5.6 mmol/L (3.5-5.1)
[2023-12-06 06:16] LABS: Anion Gap 23.6 (5-19); Phosphorus 8.9 mg/dL (2.5-4.5); Potassium 5.6 mmol/L (3.5-5.1)
[2023-12-06 06:22] LABS: Ferritin 3051 ng/mL (30-400)
--- NOTE | 2023-12-06 07:51 | PC.NURSE ---
MTS contacted per protocol. Spoke with Batool Salguero.
--- NOTE | 2023-12-06 07:52 | P.PN_ITS ---
Subjective 2 Subjective: minimally responsive to touch, not to voice Medications: Reviewed: Yes Medication Review Details: Current Medications Acetaminophen (Acetaminophen 325 Mg Tablet) 650 mg PO Q6H PRN PRN Reason: MILD PAIN Aspirin (Aspirin 81 Mg Ec Tablet) 81 mg PO DAILY [facility] Last Admin: 12/05/23 08:25 Dose: 81 mg Atorvastatin Calcium (Atorvastatin 40 Mg Tablet) 40 mg PO DAILY [facility] Last Admin: 12/05/23 08:25 Dose: 40 mg Duloxetine HCl (Duloxetine 60 Mg Capsule) 60 mg PO DAILY [facility] Last Admin: 12/05/23 08:25 Dose: 60 mg Folic Acid (Folic Acid 1 Mg Tablet) 1 mg PO DAILY [facility] Last Admin: 12/05/23 08:25 Dose: 1 mg Heparin Sodium (Porcine) (Heparin 5,000 Unit/Ml Inj 1 Ml) 5,000 unit SUBCUT Q12H [facility] Last Admin: 12/06/23 02:53 Dose: 5,000 unit Dextrose (D10w) 250 mls @ 1,000 mls/hr IV PRN PRN PRN Reason: HYPOGLYCEMIA Last Infusion: 12/04/23 11:23 Dose: 0 mls/hr Fentanyl (Sublimaze) 1,000 mcg in 100 mls @ 0 mls/hr IV .Q0M [facility]; Protocol Last Titration: 12/05/23 11:00 Dose: 0 mcg/hr, 0 mls/hr Propofol (Diprivan) 1,000 mg in 100 mls @ 0 mls/hr IV .Q0M [facility]; Protocol Last Titration: 12/05/23 07:57 Dose: 0 mcg/kg/min, 0 mls/hr Levetiracetam (Keppra) 500 mg in 100 mls @ 400 mls/hr IV Q12H [facility] Last Infusion: 12/05/23 23:56 Dose: Infused Piperacillin Sod/Tazobactam (Sod 3.375 gm/ Sodium Chloride) 50 mls @ 12.5 mls/hr IV Q12H [facility] Last Infusion: 12/06/23 02:51 Dose: Infused Methylprednisolone Sodium Succinate (Methylprednisolone Sod Succ 125 Mg/2 Ml Inj) 60 mg IVP Q12H [facility] Last Admin: 12/05/23 23:21 Dose: 60 mg Ondansetron HCl (Ondansetron 2 Mg/Ml Sdv 2 Ml) 4 mg IVP Q6H PRN PRN Reason: NAUSEA AND VOMITING Pantoprazole Sodium (Pantoprazole 40 Mg Sdv) 40 mg IVP Q12H [facility] Last Admin: 12/05/23 23:21 Dose: 40 mg Primidone (Primidone 50 Mg Tablet) 50 mg PO DAILY [facility] Last Admin: 12/05/23 08:25 Dose: 50 mg Tamsulosin HCl (Tamsulosin 0.4 Mg Capsule) 0.4 mg PO DAILY [facility] Last Admin: 12/05/23 08:25 Dose: 0.4 mg Vitals/I&O/Wt Last Vital Signs Temp 97.6 F 12/06/23 04:30 Pulse 80 12/06/23 06:12 Resp 13 12/06/23 07:46 BP 140/78 12/06/23 06:00 Pulse Ox 100 12/06/23 07:46 O2 Del Method Mechanical Ventilation 12/06/23 06:00 FiO2 24 12/06/23 07:46 12/05/23 12/06/23 12/06/23 22:59 06:59 14:59 Intake Total 1115.833 / 2197.312 150 / 2347.312 Output Total 200 / 200 50 / 250 Balance 915.833 / 1997.312 100 / 2097.312 Weight last 48 hrs Weight 70.488 kg Weight 75.75 kg Weight 69 kg Weight 72.121 kg Weight 71.214 kg Physical Exam 2 Narrative: The patient was seen via A/V equipment. It was a telehealth examination. The nurse examined the patient. The patient is intubated he is minimally responsive to touch Elderly man in bed. vent fio2 of 25% Neck is supple lungs good air movement b/l. heart is regular, + s1, s2 Abdomen is soft positive bowel sounds. Extremities do not have edema. Neuro minimally responsive. Patient has a right IJ permacath. Urinary Catheter Management: Wolff: Cath Placed During This Visit: yes Reason for Continuing Indwelling Catheter: Accurate Measurement of Urinary Output in Critically Ill Patients Urinary Catheter Date of Insertion: 12/04/23 Data 12/06/23 03:47 12/06/23 03:47 Micro: Microbiology 12/05/23 13:11 Blood Culture - Preliminary Blood SPECIMEN COLLECTED 12/04/23 09:07 Gram Stain - Final Sputum - Endotracheal Wash Sputum Culture - Preliminary 12/04/23 10:24 Blood Culture - Preliminary Blood NEGATIVE TO DATE 12/04/23 09:24 Urine Culture - Preliminary Urine,Clean Catch A&P Assessment and plan (1) ESRD (end stage renal disease) on dialysis: 78-year-old gentleman 1. Second admission within 2 weeks for symptomatic hypoglycemia. Evaluation as per medicine. 2. Head CT noted. He has no acute intracranial hemorrhage or edema he has moderate atrophy and small vessel ischemic disease. Will evaluate for possible brain injury from recurrent hypoglycemia. 3. leukocytosis is improving. CT scan shows central mesenteric edema fluid around the pancreas concerning for acute pancreatitis check lipase level. He has stomach and duodenal swelling. Chest x-ray has improved lung opacities resolving. Does not appear to have an pneumonia or volume overload. -Renal dose antibiotics as per medicine. 4. End-stage renal disease patient is on dialysis Thursday and Thursday. -rising k, phos, and lower bicarb- will attempt dialysis today and see if it helps check uric acid, ldh, lactate give phos binder when eating 5. anemia- hgb improving 6. Patient's BNP was 50,000 yesterday- monitor Case discussed with Dr Chaudhari and nurse. telehealth exam w/ RN Plan See above. Attestations 2 Medical Necessity Statement*: VDRF, minimally responsive, ESRD, hyperphosphateia Time Spent in Patient Care: Greater than 35 minutes (>than 50% of time spent in counselling and/or direct pt care on unit) . Coding Level of Care Code Acute Code for Chg Fwd Diagnoses ESRD (end stage renal disease) on dialysis N18.6; Z99.2
[2023-12-06 08:03] LABS: Glucose Point of Care 242 mg/dL (70-110)
[2023-12-06] MEDS: piperacillin-tazobactam 3.375 GM in sodium chloride 0.9% (plus) 50 ML IV ×2 (08:48→19:18)
[2023-12-06] MEDS: levETIRAcetam 500 MG/100 ML PREMIX 400 MG IV ×2 (08:48→20:38)
[2023-12-06] MEDS: tamsulosin 0.4 mg Capsule 0.400000000000000022 MG PO (08:53)
[2023-12-06] MEDS: duloxetine 60 mg Capsule PO (08:53)
[2023-12-06] MEDS: atorvastatin 40 mg Tablet PO (08:53)
[2023-12-06] MEDS: folic acid 1 mg Tablet PO (08:53)
[2023-12-06] MEDS: primidone 50 mg Tablet PO (08:53)
[2023-12-06] MEDS: aspirin 81 mg EC Tablet PO (08:53)
[2023-12-06 09:14] LABS: Ammonia 14 umol/L (16-60); Lactate (Lactic Acid level) 1.3 mmol/L (0.5-2.2); Lactate Dehydrogenase 214 U/L (135-225); Uric Acid 6.2 mg/dL (3.4-7.0)
[2023-12-06] MEDS: methylPREDNISolone sod succ 125 mg/2 mL INJ 60 MG IVP ×2 (10:27→22:01)
--- NOTE | 2023-12-06 11:18 | P.PN_ITS ---
Subjective 2 Subjective: This morning patient is off sedation Able to open eyes, moving his extremities Awaiting weaning trial morning weaning trial was failed because patient was showing apneic spells, at that point he was not responding however there is a change in his mentation Another weaning trial around noon Vitals/I&O/Wt Last Vital Signs Temp 97.5 F L 12/06/23 10:28 Pulse 85 12/06/23 10:30 Resp 8 L 12/06/23 10:28 BP 169/86 12/06/23 10:30 Pulse Ox 100 12/06/23 10:30 O2 Del Method Mechanical Ventilation 12/06/23 10:30 FiO2 24 12/06/23 08:34 12/05/23 12/06/23 12/06/23 22:59 06:59 14:59 Intake Total 1115.833 / 2197.312 150 / 2347.312 100 / 100 Output Total 200 / 200 50 / 250 Balance 915.833 / 1997.312 100 / 2097.312 100 / 100 Weight last 48 hrs Weight 70.488 kg Weight 75.75 kg Weight 69 kg Weight 72.121 kg Physical Exam 2 Narrative: Patient is opening eyes but not able to follow commands Moving his extremities to some extent Twitching his feet Looks dehydrated Blood sugar normal Hemodynamic stable Off IV fluids Swelling of lower extremity noted Urinary Catheter Management: Wolff: Cath Placed During This Visit: yes Reason for Continuing Indwelling Catheter: Accurate Measurement of Urinary Output in Critically Ill Patients Urinary Catheter Date of Insertion: 12/04/23 Data 12/06/23 03:47 12/06/23 03:47 Micro: Microbiology 12/05/23 13:11 Blood Culture - Preliminary Blood SPECIMEN COLLECTED 12/04/23 09:07 Gram Stain - Final Sputum - Endotracheal Wash Sputum Culture - Preliminary 12/04/23 10:24 Blood Culture - Preliminary Blood NEGATIVE TO DATE 12/04/23 09:24 Urine Culture - Preliminary Urine,Clean Catch A&P Assessment and plan (1) Mood disorder: (2) Diabetes: Qualifiers: Diabetes mellitus type: type 2 Diabetes mellitus retirement insulin use: with director long term care use Diabetes mellitus complication status: with hyperglycemia Qualified Code(s): E11.65 - Type 2 diabetes mellitus with hyperglycemia; Z79.4 - skilled nursing (current) use of insulin (3) Hypoglycemia: (4) Weight loss: (5) GERD (gastroesophageal reflux disease): Qualifiers: Esophagitis presence: esophagitis presence not specified Qualified Code(s): K21.9 - Gastro-esophageal reflux disease without esophagitis (6) Pancreatitis: (7) ESRD (end stage renal disease) on dialysis: (8) Iron deficiency: (9) Microscopic polyangiitis: (10) Acute encephalopathy: (11) Syncope: Plan Metabolic encephalopathy related to hypoglycemia Patient opening eyes not able to follow commands but moving his extremities Plan to do weaning trial today End-stage renal disease, plan for dialysis today clinically is fluid overloaded Hypoglycemia improved: Hemoglobin A1c is below 7, might not be reliable considering underlying dialysis condition Chronic anemia without exacerbation Seizure: No recurrence during hospitalization Continue antiepileptics Respiratory failure requiring Intubation for airway protection, weaning trial today Echo unremarkable, EKG showing sinus rhythm DVT prophylaxis: Heparin No CPR Attestations 2 Medical Necessity Statement*: Continue ICU management Diagnoses Mood disorder F39 Type 2 diabetes mellitus with hyperglycemia, with long-term current use of insulin E11.65; Z79.4 Diabetes mellitus type: type 2 Diabetes mellitus retirement insulin use: with director long term care use Diabetes mellitus complication status: with hyperglycemia Hypoglycemia E16.2 Weight loss R63.4 Gastroesophageal reflux disease, esophagitis presence not specified K21.9 Esophagitis presence: esophagitis presence not specified Pancreatitis K85.90 ESRD (end stage renal disease) on dialysis N18.6; Z99.2 Iron deficiency E61.1 Microscopic polyangiitis M31.7 Acute encephalopathy G93.40 Syncope R55
[2023-12-06 11:50] LABS: Glucose Point of Care 150 mg/dL (70-110)
[2023-12-06 12:18] LABS: Glucose Point of Care 113 mg/dL (70-110)
--- NOTE | 2023-12-06 13:27 | PC.NURSE ---
Per dialysis nurse Winnie, 1L off during dialysis today. Patient tolerated hemodialysis well.
[2023-12-06] MEDS: pantoprazole 40 mg SDV IVP (13:31)
[2023-12-06 14:37] LABS: Glucose Point of Care 195 mg/dL (70-110)
--- NOTE | 2023-12-06 14:49 | CTR_ITS ---
PROCEDURE INFORMATION: Exam: CT Head Without Contrast Exam date and time: 12/06/2023 4:01 PM Age: 78 years old Clinical indication: Other: Not following commands, follow up neuro; Patient HX: On vent TECHNIQUE: Imaging protocol: Computed tomography of the head without contrast. Radiation optimization: All CT scans at this facility use at least one of these dose optimization techniques: automated exposure control; mA and/or kV adjustment per patient size (includes targeted exams where dose is matched to clinical indication); or iterative reconstruction. COMPARISON: CT angio headneck* [id number] 12/04/2023 1:40 PM RADIATION DOSE METRICS: Total DLP (mGy-cm): 1130.88 FINDINGS: Brain: There is an acute left frontotemporal subdural hematoma which measures up to 5 mm in depth. Just deep to the subdural hematoma, there is a small subarachnoid hemorrhage in the left posterior frontal lobe. There are global involutional changes of the brain which are in keeping with the patient's age. Periventricular hypodensities are nonspecific but most likely reflect chronic microvascular ischemic disease. Benign basal ganglia calcifications are noted. Cerebral ventricles: No ventriculomegaly. Paranasal sinuses: The visualized sinuses are unremarkable. Mastoid air cells: There are bilateral mastoid effusions. Bones: No calvarial fracture identified. Soft tissues: Unremarkable. CT/CT head wo con* [id number] IMPRESSION: 1. Acute left frontotemporal subdural hematoma measuring up to 5 mm in depth. 2. Small underlying subarachnoid hemorrhage in the left posterior frontal lobe.
--- NOTE | 2023-12-06 15:15 | PC.NURSE ---
Patient spitting while nurse performing oral care. Denies pain at this time. given update on patient condition via telephone, Oldest son added to contacts and also given update.
--- NOTE | 2023-12-06 16:26 | PC.NURSE ---
Addendum entered by Hoda Fitzpatrick RN 12/06/23 16:31: Witnessed waste of fentanyl and propofol with nurse ALIS Lucero Original Note: Waste: Fentanyl 35.208ml and Propofol 46.983ml. Waste witness ALIS Hayes.
[2023-12-06 16:40] LABS: Glucose Point of Care 263 mg/dL (70-110)
[2023-12-06] MEDS: hyDRALAzine 20 mg/mL INJ 1 mL 10 MG IVP (16:50)
[2023-12-06] MEDS: propofol 1,000 MG/100 ML INJ 2.14000000000000012 MG IV (17:22)
[2023-12-06] MEDS: tranexamic acid 1,000 MG/100 ML PREMIX 600 MG IV (17:30)
--- NOTE | 2023-12-06 17:59 | PM.CCNAC ---
Critical Care Event Note CT head showing subdural hematoma 5 mm Subdural hemorrhage There was no such finding on initial CT scan of the head Spoke with ICU nurse, spoke with the family [facility] also called [facility] I will give patient loading dose of Tranxene Bindu acid, He is already on antiepileptics Since there is no midline shift I would not add mannitol at this point Put him back on propofol Keep his head elevated at 45 degrees Keep his blood pressure within normal range with use of labetalol on as-needed basis Discontinue heparin and aspirin Discussed case with Dr. Davis neurology who recommended consulting neurosurgery and transfer of the patient, Family is wanting opinion from neurosurgeon before making their final decision The high probability of a clinically significant, sudden or life threatening deterioration of the patient's [] system(s) required my full and direct attention, intervention and personal management. The critical care time is as shown. This time is in addition to time spent performing any reported procedures but includes the following: [x] Data and vital sign review and interpretation [x] Patient assessment, examination and intervention [x] Documentation [x] Medication orders and management Critical Care Time Code activated: No Critical Care Time (min): 60 Coding Level of Care Code Acute Code for Chg Fwgalina
--- NOTE | 2023-12-06 18:07 | PM.TDS ---
Transfer Summary Providers Date of Admission: 12/04/23 12:42 Date of Discharge/Transfer: 12/06/23 Attending Provider at Admission: Miles Horn MD Attending Provider at Transfer: Rachel Chaudhari MD Primary Care Provider: Bi Leon MD Transfer Plans: Anticipated date of transfer: 12/06/23. 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 Diabetes mellitus complication status: with hyperglycemia Qualified Code(s): E11.65 - Type 2 diabetes mellitus with hyperglycemia; Z79.4 - [facility] (current) use of insulin (3) Hypoglycemia: Status: Acute (4) Weight loss: Status: Acute (5) GERD (gastroesophageal reflux disease): Status: Acute Qualifiers: Esophagitis presence: esophagitis presence not specified Qualified Code(s): K21.9 - Gastro-esophageal reflux disease without esophagitis (6) Pancreatitis: Status: Acute (7) ESRD (end stage renal disease) on dialysis: Status: Acute (8) Iron deficiency: Status: Acute (9) Microscopic polyangiitis: Status: Acute (10) Acute encephalopathy: Status: Acute (11) Syncope: Status: Acute Reason for Visit Reason for Visit hypoglycemic, unresponsive Hospital Course Hospital Course 78-year male who was admitted to the hospital for management evaluation of metabolic encephalopathy related to hypoglycemia, EMS was called when found him on the floor, last known well time unknown, reportedly patient went to bed without any difficulties around 8 PM on night before, when EMS checked on him his blood sugar was 44, he was shaking his lower extremities there was concern for stroke and seizure. Code stroke was called on arrival, patient was intubated for poor GCS score for airway protection. CT head did not show any hemorrhage, CTA head and neck was done which did not show any aneurysm or stenosis or bleeding. Patient was put on dextrose along propofol and Versed, he was given Zosyn antibiotic for possible aspiration pneumonia, he did not show any sign of sepsis, of note, he has history of end-stage renal disease and insulin-dependent diabetes, patient has history of microscopic polyangiitis, lung nodules, sleep apnea and dementia. He is considered fairly active for his age. He recently introduced insulin because of poorly controlled diabetes. Patient was admitted on 12/03 there were no findings of hemorrhage or subdural hematoma Weaning trial failed on 12/04, sedations were weaned off, patient was able to open eyes but not following commands, 12/[address] was done which showed subdural hematoma 5 mm without midline shift or mass effect with underlying subarachnoid hemorrhage As soon as I receive the report for CT head without contrast regarding subdural hematoma subarachnoid hemorrhage, spoke with the family, they wanted evaluation from neurosurgery, I spoke with transfer line [facility], computer systems designer has accepted the patient in neuro surgeon will be Dr. Ellis, they have reviewed images which we uploaded on the cloud. At the time of transfer patient is on minimal vent settings FiO2 30% PEEP 5, blood pressure has been kept systolic below 140 mmhg and diastolic below 90 with use of labetalol, I have given him loading dose of Tranxene Bindu acid, case discussed with Dr. Susan Pina neurology he recommended against mannitol at this point Will will Air-Evac the patient to [facility]. Physical Exam Narrative: Patient intubated Added propofol for sedation Able to open eyes but not following commands Seizure related activities noticed of lower extremities and left arm Not able to follow commands off sedation S1, S2 sinus rhythm Afebrile O2 saturation 100% Urinary Catheter Management: Wolff: Cath Placed During This Visit: yes Reason for Continuing Indwelling Catheter: Accurate Measurement of Urinary Output in Critically Ill Patients Urinary Catheter Date of Insertion: 12/04/23 TS Data Studies Completed and Pending Pending at discharge Category Date Time Status Arterial Blood Gas W/O Coox AM LABS Lab 12/07/23 04:00 Ordered Basic Metabolic Panel AM LABS Lab 12/07/23 04:00 Ordered Blood Culture Stat Lab 12/04/23 10:24 Results Complete Blood Count w/Auto AM LABS Lab 12/07/23 04:00 Ordered Complete Blood Count w/Auto AM LABS Lab 12/07/23 04:00 Ordered Comprehensive Metabolic Panel AM LABS Lab 12/07/23 04:00 Ordered Hepatitis B Surface AG w/Conf Routine Lab 12/04/23 09:11 Received Magnesium AM LABS Lab 12/07/23 04:00 Ordered Phosphorus AM LABS Lab 12/07/23 04:00 Ordered CV. echo complete* [id number] Routine Ultrasound 12/05/23 06:00 Taken Completed Studies During Hospitalization Category Date Time Status CT head wo con* [id number] Routine Cat Scan 12/06/23 14:[address] head wo con* [id number] Stat Cat Scan 12/04/23 08:[address] kidney stone [id number] Stat Cat Scan 12/04/23 10:16 Completed CTA head neck [CT angio headneck* [id number]] Stat Cat Scan 12/04/23 12:57 Completed XR chest 1V portable [id number] Routine Exams 12/05/23 07:00 Completed XR chest 1V portable [id number] Stat Exams 12/04/23 08:46 [place] [id number] Routine Ultrasound 12/06/23 06:00 Completed Laboratory Last Values WBC 9.91 10^3/uL (3.29-11.43) 12/06/23 03:47 RBC 3.07 10^6/uL (3.85-5.65) L 12/06/23 03:47 Hgb 9.00 g/dL (11.27-16.99) L 12/06/23 03:47 Hct 28.7 % (37-53) L 12/06/23 03:47 MCV 93.5 fl (82-101) 12/06/23 03:47 MCH 29.3 pg (27-33) 12/06/23 03:47 MCHC 31.4 g/dL (30-55) 12/06/23 03:47 RDW 15.9 % (12.1-15.1) H 12/06/23 03:47 Plt Count 230 10^3/cmm (157-399) D 12/06/23 03:47 MPV 9.3 fL (7.4-10.4) 12/06/23 03:47 Neut % (Auto) 92.8 % 12/06/23 03:47 Lymph % (Auto) 4.4 % 12/06/23 03:47 [place] % (Auto) 1.3 % 12/06/23 03:47 Eos % (Auto) 0.0 % 12/06/23 03:47 Baso % (Auto) 0.3 % 12/06/23 03:47 Neut # (Auto) 9.19 10^3/uL (1.8-7.7) H 12/06/23 03:47 Lymph # (Auto) 0.4 10^3/uL (0.8-4.8) L 12/06/23 03:47 [place] # (Auto) 0.1 10^3/uL (0.2-0.9) L 12/06/23 03:47 Eos # (Auto) 0.0 10^3/uL (0.0-0.8) 12/06/23 03:47 Baso # (Auto) 0.0 10^3/uL (0.0-0.1) 12/06/23 03:47 Nucleated RBC % (auto) 0 % 12/06/23 03:47 Nucleated RBCs # 0.0 /100WBC 12/06/23 03:47 Specimen Type Arterial 12/06/23 04:20 Sample Site Brachial, right 12/06/23 04:20 ABG pH 7.36 (7.35-7.45) 12/06/23 04:20 ABG pCO2 36.8 mmHg (35-45) 12/06/23 04:20 ABG pO2 145.0 mmHg (80.0-100.0) H 12/06/23 04:20 ABG PO2/FiO2 Ratio 0 12/06/23 04:20 ABG HCO3 20.7 mmol/L (22-26) L 12/06/23 04:20 ABG O2 Saturation 99.2 12/04/23 10:59 ABG Base Excess -4.3 mmol/L (-2.0-2.0) L 12/06/23 04:20 Sushil Test N/a 12/06/23 04:20 A-a O2 Gradient 6.3 mmHg (5-10) 12/04/23 10:59 Hematocrit 31.9 % (42-52) L 12/06/23 04:20 Hgb O2 Saturation 98.2 % (95-100) 12/04/23 10:59 Carboxyhemoglobin 0.4 %THgb (0.4-20.1) 12/04/23 10:59 Methemoglobin 0.6 % (0.4-1.5) 12/04/23 10:59 Total Hemoglobin 9.2 g/dL (14-18) L 12/04/23 10:59 Sodium 132.0 mmol/L (131-143) 12/04/23 10:59 Potassium 4.5 mmol/L (3.5-5.0) 12/04/23 10:59 Glucose 212.0 mg/dL (70-115) H 12/04/23 10:59 Ionized Calcium 1.2 mmol/L (1.1-1.4) 12/04/23 10:59 O2 Delivery Device Vent 12/06/23 04:20 FiO2 30.0 % 12/06/23 04:20 Tidal Volume 0.45 12/06/23 04:20 PEEP 5.0 cmH20 12/06/23 04:20 Fish Smoker ID Stephan 12/06/23 04:20 Sodium 133 mmol/L (136-145) L 12/06/23 03:47 Sodium 134 mmol/L (136-145) L 12/06/23 03:47 Potassium 5.6 mmol/L (3.5-5.1) H 12/06/23 03:47 Potassium 5.6 mmol/L (3.5-5.1) H 12/06/23 03:47 Chloride 98 mmol/L (98-107) 12/06/23 03:47 Chloride 98 mmol/L (98-107) 12/06/23 03:47 Carbon Dioxide 16 mmol/L (22-29) L 12/06/23 03:47 Carbon Dioxide 18 mmol/L (22-29) L 12/06/23 03:47 Anion Gap 23.6 (5-19) H 12/06/23 03:47 Anion Gap 24.6 (5-19) H 12/06/23 03:47 BUN 40 mg/dL (8-23) H 12/06/23 03:47 BUN 42 mg/dL (8-23) H 12/06/23 03:47 Creatinine 5.6 mg/dL (0.7-1.2) H* 12/06/23 03:47 Creatinine 5.8 mg/dL (0.7-1.2) H* 12/06/23 03:47 GFR Calculation Not Reportable 12/06/23 03:47 GFR Calculation Not Reportable 12/06/23 03:47 Glucose 249 mg/dL (65-115) H 12/06/23 03:47 Glucose 250 mg/dL (65-115) H 12/06/23 03:47 POC Glucose 263 mg/dL (70-110) H 12/06/23 16:37 Estimat Average Glucose 148 12/05/23 04:11 Hemoglobin A1c 6.8 % (4.0-6.0) H 12/05/23 04:11 Calculated Osmolality 295 mOsm/kg (285-295) 12/06/23 03:47 Calculated Osmolality 296 mOsm/kg (285-295) H 12/06/23 03:47 Lactic Acid 2.7 mmol/L (0.5-2.2) H 12/04/23 09:11 Lactic Acid (Sepsis) 2.4 mmol/L (0.5-2.2) H 12/04/23 12:21 Lactate 1.3 mmol/L (0.5-2.2) 12/06/23 08:45 Uric Acid 6.2 mg/dL (3.4-7.0) 12/06/23 08:45 Calcium 8.4 mg/dL (8.5-10.5) L 12/06/23 03:47 Calcium 8.6 mg/dL (8.5-10.5) 12/06/23 03:47 Phosphorus 8.9 mg/dL (2.5-4.5) H* D 12/06/23 03:47 Magnesium 2.1 mg/dL (1.7-2.3) 12/06/23 03:47 Iron 56 ug/dL (59-158) L 12/06/23 03:47 TIBC 150 mcg/dl 12/06/23 03:47 % Saturation 37.3 % (20-50) 12/06/23 03:47 Unsat Iron Binding 94 ug/dL (112-347) L 12/06/23 03:47 Ferritin 3051 ng/mL (30-400) H 12/06/23 03:47 Total Bilirubin 0.2 mg/dL (0.15-1.2) 12/06/23 03:47 AST 15 U/L (0-40) 12/06/23 03:47 ALT 15 U/L (0-41) 12/06/23 03:47 Alkaline Phosphatase 55 U/L (40-130) 12/06/23 03:47 Ammonia 14 umol/L (16-60) L 12/06/23 08:45 Lactate Dehydrogenase 214 U/L (135-225) 12/06/23 08:45 Creatine Kinase 44 U/L (39-308) 12/04/23 11:24 Troponin T Baseline 72 ng/L (0-15) H 12/04/23 09:11 Troponin T 120 Minute 77.37 ng/L (0-15) H 12/04/23 11:24 Delta Troponin T 5.37 ABS# (0-10) 12/04/23 11:24 Troponin T Hi Sens 6Hr 100.3 ng/L (0-15) H 12/04/23 15:00 Troponin T Hi Sens 6Hr Delta 28.3 ng/L (0-12) H* 12/04/23 15:00 NT-Pro-B Natriuret Pep 75814 pg/mL (0-450) H 12/04/23 09:11 Total Protein 6.3 g/dL (6.6-8.7) L 12/06/23 03:47 Albumin 3.1 g/dL (3.5-5.2) L 12/06/23 03:47 Globulin 3.2 g/dL (1.3-4.6) 12/06/23 03:47 Lipase 29 U/L (13-60) 12/04/23 11:24 Urine Color Yellow (Yellow) 12/04/23 09:24 Urine Appearance Clear (CLEAR) 12/04/23 09:24 Urine pH 9 (5-7) H 12/04/23 09:24 Ur Specific [place] 1.015 (1.005-1.030) 12/04/23 09:24 Urine Protein 2+ (Negative) H 12/04/23 09:24 Urine Glucose (UA) 1+ (Normal) H 12/04/23 09:24 Urine Ketones Negative (Negative) 12/04/23 09:24 Urine Blood 3+ (Negative) H 12/04/23 09:24 Urine Nitrate Negative (Negative) 12/04/23 09:24 Urine Bilirubin Neg (Negative) 12/04/23 09:24 Urine Urobilinogen Norm mg/dL (Negative) 12/04/23 09:24 Ur Leukocyte Esterase Negative (Negative) 12/04/23 09:24 Urine RBC Too numerous to cnt /hpf (0-2) H 12/04/23 09:24 Urine WBC None /hpf (0-5) 12/04/23 09:24 Ur Squamous Epith Cells None /hpf (0-5) 12/04/23 09:24 Amorphous Sediment Not Reportable 12/04/23 09:24 Urine Bacteria Trace /hpf (NONE) 12/04/23 09:24 Serum Ketones Negative (Negative) 12/04/23 09:11 Adenovirus (PCR) Not detected (NOT DETECT) 12/04/23 09:58 C. pneumoniae DNA (PCR) Not detected (NOT DETECT) 12/04/23 09:58 Coronavirus 229E (PCR) Not detected (NOT DETECT) 12/04/23 09:58 Hep Bs Antigen Reactive (Nonreactive) H 12/04/23 09:11 Hep Bs Antibody < 3.5 (11.5-1000) L 12/04/23 09:11 Hepatitis C Antibody Non-reactive (Nonreactive) 12/04/23 09:11 Human Metapneumovir PCR Not detected (NOT DETECT) 12/04/23 09:58 Influenza A (H1) PCR Not detected (NOT DETECT) 12/04/23 09:58 Influ A (H1/09) PCR Not detected (NOT DETECT) 12/04/23 09:58 Influenza A (H3) PCR Not detected (NOT DETECT) 12/04/23 09:58 Influenza Type A (PCR) Not detected (NOT DETECT) 12/04/23 09:58 Influenza Type B (PCR) Not detected (NOT DETECT) 12/04/23 09:58 M. pneumoniae (PCR) Not detected (NOT DETECT) 12/04/23 09:58 Parainfluenza 1 (PCR) Not detected (NOT DETECT) 12/04/23 09:58 Parainfluenza 2 (PCR) Not detected (NOT DETECT) 12/04/23 09:58 Parainfluenza 3 (PCR) Not detected (NOT DETECT) 12/04/23 09:58 Parainfluenza 4 (PCR) Not detected (NOT DETECT) 12/04/23 09:58 RSV Type A (PCR) Not detected (NOT DETECT) 12/04/23 09:58 RSV Type B (PCR) Not detected (NOT DETECT) 12/04/23 09:58 Entero/Rhino (PCR) Not detected (NOT DETECT) 12/04/23 09:58 SARS-CoV-2 (PCR) Not detected (NOT DETECT) 12/04/23 09:58 Radiology Impressions Abdomen/Pelvis CT 12/04/23 10:16 IMPRESSION: 1. Central mesenteric edema with fluid surrounding the pancreas and the duodenum. Most likely acute pancreatitis. There is no focal collection such as pseudocyst. 2. Small amount of intraperitoneal fluid extending along the paracolic gutters. 3. Significant edema surrounding the stomach antrum and the proximal duodenum. No obstruction. This may all be secondary to pancreatitis or duodenitis. 4. Prior cholecystectomy. 5. Limited visualization of the pancreas without IV contrast. 6. No GI tract obstruction. 7. Mild cardiomegaly and pericardial effusion. 8. Nasogastric tube terminating in the stomach. 9. No free air. Head/Neck CTA 12/04/23 12:57 IMPRESSION: 1. Mild atherosclerotic plaque at the origin of the cervical ICAs. No significant stenosis. 2. No thrombus or occlusion in the [place]. No aneurysm. 3. Mild atherosclerotic plaque intracranial carotid arteries. 4. Patient is intubated. 5. Nasogastric tube. 6. Motion artifact upper lung [place]. Chest X-Ray 12/05/23 07:00 IMPRESSION: No acute findings. Duplex Scan Lower Extremity Artery 12/06/23 06:00 IMPRESSION: 1. No stenosis or occlusion. 2. Bilateral anterior tibial and anterior peroneal arteries are excluded from the examination. Head CT 12/06/23 14:49 IMPRESSION: 1. Acute left frontotemporal subdural hematoma measuring up to 5 mm in depth. 2. Small underlying subarachnoid hemorrhage in the left posterior frontal lobe. ADDENDUM: 12/06/23 1636 ALIS Quevedo was contacted by phone at 4:33 PM CDT, 12/06/2023 with these results. Recent Clincial Data Last Vital Signs Temp 97.9 F 12/06/23 14:15 Pulse 87 12/06/23 16:30 Resp 12 12/06/23 16:09 BP 166/80 12/06/23 16:30 Pulse Ox 100 12/06/23 16:09 O2 Del Method Mechanical Ventilation 12/06/23 13:30 FiO2 21 12/06/23 15:29 Vital Signs Temp Pulse Resp BP Pulse Ox O2 Del Method FiO2 12/06/23 16:30 87 166/80 12/06/23 16:09 85 12 162/100 100 12/06/23 15:30 101 H 156/80 12/06/23 15:29 16 98 21 12/06/23 15:00 84 148/78 12/06/23 14:30 84 139/69 12/06/23 14:15 97.9 F 94 11 L 131/75 12/06/23 14:12 82 12/06/23 14:00 80 172/82 12/06/23 13:30 95 131/75 97 Mechanical Ventilation 12/06/23 13:00 103 H 142/77 96 Mechanical Ventilation 12/06/23 12:30 95 158/85 12/06/23 12:26 12 97 21 12/06/23 12:13 97.8 F 12/06/23 12:00 98 164/85 12/06/23 11:30 99 158/81 12/06/23 11:17 12 100 21 12/06/23 11:00 101 H 162/88 12/06/23 10:30 85 169/86 100 Mechanical Ventilation 12/06/23 10:28 97.5 F L 86 8 L 165/89 12/06/23 10:00 91 149/73 99 Mechanical Ventilation 12/06/23 09:30 98.7 F 81 159/79 99 Mechanical Ventilation 12/06/23 09:00 82 180/87 98 Mechanical Ventilation 12/06/23 08:34 11 L 100 24 12/06/23 08:30 85 169/86 12/06/23 08:00 83 163/83 12/06/23 07:46 13 100 24 12/06/23 07:30 81 161/78 12/06/23 07:00 88 167/86 12/06/23 06:30 82 167/83 12/06/23 06:12 80 Intake & Output/Weight 12/04/23 12/05/23 12/06/23 12/07/23 06:59 06:59 06:59 06:59 Intake Total 2159.921 / 2159.921 2347.312 / 2347.312 551.496 / 551.496 Output Total 2700 / 2700 250 / 250 1310 / 1310 Balance -540.079 / -431.608 5218.312 / 2097.312 -758.504 / -758.504 Weight 75.75 kg 70.488 kg 75.1 kg Vitals Last Vital Signs Temp 97.9 F 12/06/23 14:15 Pulse 87 12/06/23 16:30 Resp 12 12/06/23 16:09 BP 166/80 12/06/23 16:30 Pulse Ox 100 12/06/23 16:09 O2 Del Method Mechanical Ventilation 12/06/23 13:30 FiO2 21 12/06/23 15:29 TS Medications Medications Acetaminophen (Acetaminophen 325 Mg Tablet) 650 mg PO Q6H PRN PRN Reason: MILD PAIN Atorvastatin Calcium (Atorvastatin 40 Mg Tablet) 40 mg PO DAILY [facility] Last Admin: 12/06/23 08:53 Dose: 40 mg Duloxetine HCl (Duloxetine 60 Mg Capsule) 60 mg PO DAILY [facility] Last Admin: 12/06/23 08:53 Dose: 60 mg Folic Acid (Folic Acid 1 Mg Tablet) 1 mg PO DAILY [facility] Last Admin: 12/06/23 08:53 Dose: 1 mg Hydralazine HCl (Hydralazine 20 Mg/Ml Inj 1 Ml) 10 mg IVP Q4H PRN PRN Reason: Systolic over 180 Last Admin: 12/06/23 16:50 Dose: 10 mg Dextrose (D10w) 250 mls @ 1,000 mls/hr IV PRN PRN PRN Reason: HYPOGLYCEMIA Last Infusion: 12/04/23 11:23 Dose: 0 mls/hr Fentanyl (Sublimaze) 1,000 mcg in 100 mls @ 0 mls/hr IV .Q0M [facility]; Protocol Last Titration: 12/05/23 11:00 Dose: 0 mcg/hr, 0 mls/hr Propofol (Diprivan) 1,000 mg in 100 mls @ 0 mls/hr IV .Q0M [facility]; Protocol Last Titration: 12/06/23 17:48 Dose: 15 mcg/kg/min, 6.41 mls/hr Levetiracetam (Keppra) 500 mg in 100 mls @ 400 mls/hr IV Q12H [facility] Last Infusion: 12/06/23 09:10 Dose: Infused Piperacillin Sod/Tazobactam (Sod 3.375 gm/ Sodium Chloride) 50 mls @ 12.5 mls/hr IV Q12H [facility] Last Infusion: 12/06/23 12:50 Dose: Infused Labetalol HCl (Labetalol 5 Mg/Ml Sdv 20ml) 10 mg IVP Q4H PRN PRN Reason: bp>140/90mmhg Methylprednisolone Sodium Succinate (Methylprednisolone Sod Succ 125 Mg/2 Ml Inj) 60 mg IVP Q12H [facility] Last Admin: 12/06/23 10:27 Dose: 60 mg Ondansetron HCl (Ondansetron 2 Mg/Ml Sdv 2 Ml) 4 mg IVP Q6H PRN PRN Reason: NAUSEA AND VOMITING Pantoprazole Sodium (Pantoprazole 40 Mg Sdv) 40 mg IVP Q12H [facility] Last Admin: 12/06/23 13:31 Dose: 40 mg Primidone (Primidone 50 Mg Tablet) 50 mg PO DAILY [facility] Last Admin: 12/06/23 08:53 Dose: 50 mg Tamsulosin HCl (Tamsulosin 0.4 Mg Capsule) 0.4 mg PO DAILY [facility] Last Admin: 12/06/23 08:53 Dose: 0.4 mg Discontinued Medications Aspirin (Aspirin 81 Mg Ec Tablet) 81 mg PO DAILY [facility] Last Admin: 12/06/23 08:53 Dose: 81 mg Calcium Chloride (Calcium Chloride 10% Syr 10 Ml) 1 gm IVP ONCE ONE Stop: 12/04/23 08:56 Last Admin: 12/04/23 08:55 Dose: 1 gm Epoetin Davon (Epoetin Davon 10,000 Unit/Ml Inj) 10,000 unit SUBCUT NOW ONE Stop: 12/05/23 10:50 Last Admin: 12/05/23 11:58 Dose: 10,000 unit Etomidate (Etomidate 2 Mg/Ml Inj Sdv 10 Ml) 20 mg IVP NOW ONE Stop: 12/04/23 08:57 Last Admin: 12/04/23 08:58 Dose: 20 mg Heparin Sodium (Porcine) (Heparin 5,000 Unit/Ml Inj 1 Ml) 5,000 unit SUBCUT Q12H [facility] Last Admin: 12/06/23 13:31 Dose: 5,000 unit Hydralazine HCl (Hydralazine 20 Mg/Ml Inj 1 Ml) 10 mg IVP ONCE ONE Stop: 12/04/23 09:54 Last Admin: 12/04/23 10:03 Dose: 10 mg Midazolam HCl (Versed) 100 mg in 100 mls @ 0 mls/hr IV .Q0M [facility]; Protocol Last Titration: 12/05/23 02:11 Dose: Infused Levetiracetam (Keppra) 1,000 mg in 100 mls @ 400 mls/hr IV ONCE ONE Stop: 12/04/23 09:05 Last Infusion: 12/04/23 10:20 Dose: Infused Vancomycin HCl 1,000 mg/ (Sodium Chloride) 250 mls @ 250 mls/hr IV ONCE ONE; Protocol Stop: 12/04/23 10:12 Last Infusion: 12/04/23 13:28 Dose: Infused Piperacillin Sod/Tazobactam (Sod 3.375 gm/ Sodium Chloride) 50 mls @ 100 mls/hr IV [employer]; Protocol Stop: 12/04/23 09:42 Last Infusion: 12/04/23 11:50 Dose: Infused Sodium Chloride (Sodium Chloride 0.9%) 1,000 mls @ 100 mls/hr IV .Q10H [facility] Last Infusion: 12/05/23 08:48 Dose: 0 mls/hr Piperacillin Sod/Tazobactam (Sod / Sodium Chloride) 50 mls @ 0 mls/hr [id number] CONT [facility]; Protocol Dextrose/Sodium Chloride (Dextrose 5%-Sod Chloride 0.9%) 1,000 mls @ 50 mls/hr IV .Q20H [facility] Last Infusion: 12/05/23 21:40 Dose: 0 mls/hr Tranexamic Acid (Tranexamic Acid) 1,000 mg in 100 mls @ 600 mls/hr IV ONCE ONE Stop: 12/06/23 17:32 Last Infusion: 12/06/23 17:47 Dose: Infused Iohexol (Iohexol 350 Mg/Ml 500 Ml Btl (Per Ml)) 0 ml IV ONCE ONE Stop: 12/04/23 13:46 Last Admin: 12/04/23 13:46 Dose: 100 ml Lorazepam (Lorazepam 2 Mg/Ml Inj 10 Ml Mdv) 2 mg IVP ONCE ONE Stop: 12/04/23 08:52 Last Admin: 12/04/23 08:59 Dose: 2 mg Pantoprazole Sodium (Pantoprazole 40 Mg Sdv) 80 mg IVP ONCE ONE Stop: 12/04/23 11:46 Last Admin: 12/04/23 11:57 Dose: 80 mg Pantoprazole Sodium (Pantoprazole 40 Mg Sdv) 40 mg IVP Q12H [facility] Vecuronium [place] (Vecuronium 10 Mg Sdv) 10 mg IVP ONCE ONE Stop: 12/04/23 08:57 Last Admin: 12/04/23 09:00 Dose: 10 mg Allergies metformin Adverse Reaction (Verified 08/06/23 12:12) ADR-Diarrhea Home Medications pantoprazole 40 mg tablet,delayed release 40 mg PO BID #60 tabs 11/26/21 [Rx Confirmed 12/04/23] pen needle, diabetic 31 gauge x 5/16 (Comfort EZ Pen [place]) #100 ea 04/21/22 [Rx Confirmed 12/04/23] blood sugar diagnostic (Blood Glucose Test strips) #100 ea 07/15/22 [Rx Confirmed 12/04/23] blood-glucose meter #1 ea 07/15/22 [Rx Confirmed 12/04/23] lancets 30 gauge (TRUEplus Lancets) #100 ea 05/18/23 [Rx Confirmed 12/04/23] aspirin 81 mg tablet,delayed release 81 mg PO DAILY 11/21/23 [History Confirmed 12/04/23] atorvastatin 40 mg tablet 40 mg PO DAILY 11/21/23 [History Confirmed 12/04/23] folic acid 1 mg tablet 1 mg PO DAILY 11/21/23 [History Confirmed 12/04/23] ondansetron HCl 8 mg tablet 8 mg PO Q6H PRN Nausea 11/21/23 [History Confirmed 12/04/23] clonazepam 1 mg tablet 1 mg PO BEDTIME 12/04/23 [History Confirmed 12/04/23] insulin detemir U-100 100 unit/mL (3 mL) subcutaneous pen (Levemir FlexPen) See Rx Instructions .Route .COMPLEX 12/04/23 [History Confirmed 12/04/23] Discharge Plan Discharge Patient Disposition: Xfer Other Condition: Stable Prescriptions: No Action pantoprazole 40 mg tablet,delayed release (DR/EC) 40 mg PO BID Qty: 60 6RF (DME) pen needle, diabetic [Comfort EZ Pen [place]] 31 gauge x 5/16 needle See Rx Instructions .Route Qty: 100 3RF Rx Instructions: As directed (DME) Blood Glucose Test Strip See Rx Instructions .ROUTE .MEDSUPPLY Qty: 100 11RF Rx Instructions: to test 3 x day (DME) blood-glucose meter Misc See Rx Instructions .Route Qty: 1 0RF Rx Instructions: CHECK BLOOD SUGAR THREE TIMES DAILY (DME) lancets [TRUEplus Lancets] 30 gauge misc See Rx Instructions .ROUTE .COMPLEX Qty: 100 5RF Dose Instruction: USE THREE TIMES DAILY as directed Rx Instructions: USE THREE TIMES DAILY as directed atorvastatin 40 mg tablet 40 mg PO DAILY ondansetron HCl 8 mg tablet 8 mg PO Q6H PRN (Reason: Nausea) aspirin 81 mg Tablet,Delayed Release (Dr/Ec) 81 mg PO DAILY folic acid 1 mg tablet 1 mg PO DAILY clonazepam 1 mg tablet 1 mg PO BEDTIME Levemir FlexPen 100 unit/mL (3 mL) insulin pen See Rx Instructions .ROUTE .COMPLEX Rx Instructions: INJECT 20 UNITS SUBCUTANEOUSLY EVERY MORNING AND 20 UNITS SUBCUTANEOUSLY EVERY EVENING Discharge Orders: Transfer Out of Facility (Order); Ordered 12/06/23 Ordered By: Rachel Chaudhari Referrals: Bi Leon MD [Primary Care Provider] - Patient Instructions: Altered Mental Status (ED), Opioid Safety, Pain Management Transfer Attestations Time Spent in Transfer Care: critical care time Critical Care Time (min): 120 Quality Metrics Clinical Quality Measures [ Cerebrovascular Accident { Contraindication to Antithrombotic: Medical contraindication; Contraindication to Anticoagulation: Medical contraindication; Contraindication to Statin: None; Statin prescribed; Contraindication to antithrombotic day 2: Medical contraindication; Contraindication to tPA: Treatment not indicated; Symptom Onset Unknown: Yes; Reason stroke education not provided: Stroke education provided to patient, Stroke education refused by patient, Stroke education refused by family/guardian and Stroke education provided to family/guardian; Rehab services assessed: Other; Reason rehab assessment not done: Other}. No reported AMI, CVA or VTE this stay] Coding Level of Care Code Acute Code for [facility] Fwd Diagnoses Mood disorder F39 Type 2 diabetes mellitus with hyperglycemia, with long-term current use of insulin E11.65; Z79.4 Diabetes mellitus type: type 2 Diabetes mellitus intermediate insulin use: with intermediate use Diabetes mellitus complication status: with hyperglycemia Hypoglycemia E16.2 Weight loss R63.4 Gastroesophageal reflux disease, esophagitis presence not specified K21.9 Esophagitis presence: esophagitis presence not specified Pancreatitis K85.90 ESRD (end stage renal disease) on dialysis N18.6; Z99.2 Iron deficiency E61.1 Microscopic polyangiitis M31.7 Acute encephalopathy G93.40 Syncope R55
[2023-12-06 21:27] LABS: Glucose Point of Care 258 mg/dL (70-110)
--- NOTE | 2023-12-06 21:30 | PC.NURSE ---
Stella Report Stella Ley contacted, patient to be transferred to ICU 4E room 4312. Report called to Aquiles Garcia RN. [facility] contacted for transport. Patient family updated.
--- NOTE | 2023-12-06 22:47 | PC.NURSE ---
Addendum entered by Jeannine Jackson RN 12/10/23 00:21: Witnessed Jennifer SNELL pull one bottle of propofol from pyxis and hand to [facility] RN. Original Note: Propofol [facility] Nurse requesting propofol bottle for transfer of patient to [facility]. Propofol pulled from pyxis and gave to [facility] RN. Interaction witnessed by ALIS Paez.
--- NOTE | 2023-12-06 22:47 | PC.NURSE ---
Transfer Patient left unit with air evac team at [id number]. [facility] All vitals stable, all belongings sent with family before leaving.
[2023-12-11 19:50] LABS: Hep B Surface AG Confirmation REACTIVE; Hep B Surface AG Yes Test Yes; Hepatitis B Surface AG REACTIVE (NON-REACTIVE)
== END 2023-12-06 22:52 | disposition short-term general hospital (02) | DRG 208 ==
LOC: ER 12:29 → ICU 12:43
PROVIDERS: Internal Medicine Nephrology; Admitting Provider Internal Medicine; Emergency Provider Family Medicine; PCP Internal Medicine; Visit Provider Internal Medicine
DX: J96.00 Acute respiratory failure, unspecified whether with hypoxia or hypercapnia (principal); G93.41 Metabolic encephalopathy; I60.9 Nontraumatic subarachnoid hemorrhage, unspecified; I62.00 Nontraumatic subdural hemorrhage, unspecified; K85.90 Acute pancreatitis without necrosis or infection, unspecified; J69.0 Pneumonitis due to inhalation of food and vomit; N18.6 End stage renal disease; F02.83 Dementia in other diseases classified elsewhere, unspecified severity, with mood disturbance; I12.0 Hypertensive chronic kidney disease with stage 5 chronic kidney disease or end stage renal disease; M31.7 Microscopic polyangiitis; E11.69 Type 2 diabetes mellitus with other specified complication; G30.9 Alzheimer's disease, unspecified; E11.65 Type 2 diabetes mellitus with hyperglycemia; E11.22 Type 2 diabetes mellitus with diabetic chronic kidney disease; K21.9 Gastro-esophageal reflux disease without esophagitis; E61.1 Iron deficiency; R55 Syncope and collapse; R91.8 Other nonspecific abnormal finding of lung field; D63.1 Anemia in chronic kidney disease; R56.9 Unspecified convulsions; G47.33 Obstructive sleep apnea (adult) (pediatric); L57.0 Actinic keratosis; G60.9 Hereditary and idiopathic neuropathy, unspecified; Z79.82 Long term (current) use of aspirin; Z79.4 Long term (current) use of insulin; I25.10 Atherosclerotic heart disease of native coronary artery without angina pectoris; E78.2 Mixed hyperlipidemia; Z87.01 Personal history of pneumonia (recurrent); Z99.2 Dependence on renal dialysis
CPT/HCPCS: 31500; 36415; 36416; 36600; 51702; 70450; 70496; 70498; 71045; 74176; 80048; 80051; 80053; 81001; 82009; 82140; 82330; 82550; 82728; 82803; 82805; 82962; 83036; 83540; 83550; 83605; 83615; 83690; 83735; 83880; 84100; 84484; 84550; 85014; 85018; 85025; 86706; 86803; 87040; 87070; 87086; 87205; 87340; 87341; 87486; 87581; 87633; 90935; 93005; 93306; 93925; 94002; 94003; 94799; 96365; 96366; 96367; 96372; 96374; 96375; 96376; 99291; 99292; C9113; J0360; J1644; J1953; J2060; J2250; J2543; J2704; J2919; J3010; J3370; J3490; J7030; J7042; J7050; J7799; Q3014; Q4081; Q9967